=== PATIENT | male | born 1940 | race Caucasian/White ===

== ENCOUNTER → 2020-08-27 09:47 | Outpatient (BNV) | payer MEDICARE, SELFPAY | PROVIDERS: PCP Internal Medicine; Visit Provider Internal Medicine Medical Oncology | DX: I26.99 Other pulmonary embolism without acute cor pulmonale (principal) | CPT/HCPCS: 99212; 99213; 99214 ==

== ENCOUNTER 2020-11-09 11:49 | Outpatient (REF) | payer MEDICARE, SELFPAY ==
[2020-11-09 13:45] LABS: MANUAL DIFF FLAG NO
[2020-11-09 13:55] LABS: Basophils Percent Auto 0.3 % (0-2); Eosinophils Percent Auto 0.1 % (0-4); Hematocrit 45.7 % (42-52); Hemoglobin 14.9 g/dl (14.0-18.0); Imm Gran Abs Auto 0.04 X10*3/uL (0.00-0.03); Imm Gran Pct Auto 0.3 % (0.0-0.4); Lymphocytes Absolute Auto 1.1 X10*3/uL (1.2-4.9); Lymphocytes Percent Auto 8.7 % (20-40); Mean Corpuscular HGB Conc 32.6 g/dl (31.0-36.0); Mean Corpuscular Hemoglobin 29.7 pg (27.0-33.0); Mean Platelet Volume 11.2 fL (9.4-12.4); Monocytes Absolute Auto 1.3 X10*3/uL (0.1-1.2); Monocytes Percent Auto 10.1 % (2-11); Neutrophils Percent Auto 80.5 % (45-73); Platelet Count 241 X10*3/uL (160-400); Red Blood Count 5.02 X10*6/uL (4.60-5.80); Red Cell Distribution Width 12.7 % (11.0-16.0); White Blood Count 12.4 X10*3/uL (4.8-10.8)
[2020-11-09 14:09] LABS: Glucose Urine UA 500 MG/DL (NEG); Leukocyte Esterase Urine NEG (NEG); Nitrite Urine NEG (NEG); PH 5.5 (5.0-8.0); Specific Gravity - Urine >= 1.030 (1.005-1.025); Urine Blood NEG (NEG); Urine Ketones NEG (NEG); Urine Protein NEG (NEG-TRACE)
[2020-11-09 14:24] LABS: Alanine Aminotransferase 12 U/L (0-40); Alkaline Phosphatase 121 U/L (39-117); Anion Gap 16 (12-20); Aspartate Amino Transferase 19 U/L (5-37); Bilirubin Total 0.7 mg/dL (0.0-1.0); Blood Urea Nitrogen 19 mg/dL (9-16); Calcium 8.9 mg/dL (8.4-10.2); Carbon Dioxide 24 mmol/L (22-29); Chloride 103 mmol/L (96-108); Estimated Glomerular Filt Rate > 60; Glucose Random 135 mg/dL (60-115); Lipase 15 U/L (8-78); Potassium 4.5 mmol/L (3.3-5.1); Sodium 138 mmol/L (135-145); Total Protein 6.5 g/dL (6.5-8.0)
[2020-11-09 14:25] LABS: Appearance Urine CLEAR; Color Urine YELLOW
== END 2020-11-09 11:50 | disposition home or self-care (01) ==
LOC: HO.10HDL 11:49
PROVIDERS: Visit Provider Internal Medicine
DX: R10.9 Unspecified abdominal pain (principal); R11.2 Nausea with vomiting, unspecified; I10 Essential (primary) hypertension
CPT/HCPCS: 36415; 80053; 81003; 83690; 85025; 86140

== ENCOUNTER 2020-12-03 07:33 | Outpatient (REF) | payer MEDICARE, SELFPAY ==
--- NOTE | ~2020-12-03 | CT_ITS ---
EXAMINATION: CT ABDOMEN AND PELVIS WITHOUT CONTRAST CLINICAL INFORMATION: Abdominal pain. Right back pain. COMPARISON: None TECHNIQUE: Multidetector volumetric imaging was performed from the superior aspect of the liver through the pubic symphysis. Sagittal and coronal reformatted images were obtained on the technologist's workstation. This CT examination was performed using dose optimization techniques as appropriate, variously including the following: *Automated exposure control *Adjustment of mA and/or kV according to patient size (this includes techniques or standardized protocols for targeted exams where dose is matched to indication/reason for exam; i.e. extremities or head) *Use of iterative reconstruction technique DLP: 628 mGy-cm FINDINGS: LUNG BASES: The lung bases are clear. The heart size is normal. LIVER, GALLBLADDER, AND BILIARY TREE: The liver is normal in size, shape, and attenuation. No focal hepatic lesion or biliary ductal dilatation is present. The gallbladder is unremarkable with no evidence of radiopaque gallstones, gallbladder wall thickening, or obvious pericholecystic inflammatory changes. PANCREAS: Unremarkable. SPLEEN: Unremarkable. ADRENAL GLANDS: Unremarkable. KIDNEYS AND URETERS: The kidneys are normal in size, shape, and attenuation. No hydronephrosis, hydroureter, or calculi seen. No perinephric stranding. BLADDER: Unremarkable. GASTROINTESTINAL TRACT: There is scattered stool and gas seen throughout the colon without any significant distention. The small bowel loops are normal caliber. The appendix is not visualized. No inflammatory process seen in the abdomen or pelvis. ABDOMINAL WALL: No significant hernia is appreciated. LYMPH NODES: Normal. VASCULAR: Unremarkable. PELVIC VISCERA: Unremarkable. OSSEOUS STRUCTURES: There is no lytic or sclerotic process seen. There is mild ventral spondylosis upper and mid dorsal spine. There is vacuum disc phenomena at T12-L1 through L4-L5 disc levels. CT/CT abdomen pelvis wo con IMPRESSION: No acute intra-abdominal process. There is mild constipation.
== END 2020-12-03 07:34 | disposition home or self-care (01) ==
LOC: HO.CT 07:33
PROVIDERS: PCP Internal Medicine; Visit Provider Internal Medicine
DX: R10.84 Generalized abdominal pain (principal); R11.2 Nausea with vomiting, unspecified; M54.5 Low back pain
CPT/HCPCS: 74176

== ENCOUNTER 2021-01-15 18:59 | Inpatient (IN) | payer MEDICARE, SELFPAY ==
--- NOTE | ~2021-01-15 | US_ITS ---
EXAMINATION: US ABDOMEN LIMITED CLINICAL INFORMATION: Question cholecystitis. COMPARISON: CT from today TECHNIQUE: Real-time imaging of the gallbladder. FINDINGS: GALLBLADDER: No gallstones are seen. There is gallbladder wall thickening measuring 0.6 cm. Gallbladder wall edema noted. Small amount of echogenic bile in the gallbladder lumen. COMMON BILE DUCT: Normal in caliber measuring 0.4 cm in diameter. FREE FLUID: None. US/US abdomen limited IMPRESSION: Gallbladder wall thickening and wall edema. This appearance is concerning for cholecystitis, though could also be reactive to liver disease if present. No gallstones are seen. There is a small amount of sludge in the gallbladder.
--- NOTE | ~2021-01-15 | CT_ITS ---
EXAMINATION: CT ABDOMEN AND PELVIS WITH CONTRAST CLINICAL INFORMATION: Diffuse abdominal pain. Question pancreatitis. COMPARISON: Previous CT of the abdomen and pelvis 12/03/2020 TECHNIQUE: Multidetector volumetric images were obtained from the superior aspect of the liver through the pubic symphysis following administration 85 mL of Omnipaque 350 intravenous contrast. Sagittal and coronal reformatted images were obtained on the technologist's workstation. Oral contrast: Yes This CT examination was performed using dose optimization techniques as appropriate, variously including the following: *Automated exposure control *Adjustment of mA and/or kV according to patient size (this includes techniques or standardized protocols for targeted exams where dose is matched to indication/reason for exam; i.e. extremities or head) *Use of iterative reconstruction technique DLP: 836 mGy-cm FINDINGS: LUNG BASES: The visualized lung bases are unremarkable. LIVER, GALLBLADDER, AND BILIARY TREE: The liver is normal in size, shape, and attenuation. There is a 5 mm low-attenuation lesion in the anterior segment of the right lobe of the liver axial image 20 series 3 The gallbladder is normal in size. The gallbladder wall is slightly thickened and may be edematous. No gallstones are appreciated by CT scan. There is no intra or extrahepatic biliary duct dilatation. PANCREAS: Unremarkable. SPLEEN: Unremarkable. ADRENAL GLANDS: Unremarkable. KIDNEYS AND URETERS: There is a 1 cm low-attenuation lesion in the lower pole the right kidney. Hounsfield units following contrast measure 17 not compatible with a simple cyst. This may represent a complex cyst. The left kidney is unremarkable. BLADDER: Unremarkable. GASTROINTESTINAL TRACT: The small and large bowel are unremarkable. The appendix is unremarkable. ABDOMINAL WALL: No significant hernia is appreciated. LYMPH NODES: Normal. VASCULAR: Unremarkable. PELVIC VISCERA: Unremarkable. OSSEOUS STRUCTURES: There are degenerative changes of the spine. CT/CT abdomen pelvis w con IMPRESSION: Normal size gallbladder. The gallbladder wall appears slightly thickened and edematous. No gallstones are seen by CT scan. If there is clinical concern for cholecystitis, ultrasound or HIDA scan would be recommended. 1 cm low-attenuation lesion in the lower pole of the right kidney probably representing a complex cyst. 5 mm low-attenuation liver lesion difficult to characterize
[2021-01-15 19:10] VITALS: BP 186/86; BP 192/94; PULSE 50; PULSE 58; RESP 20; TEMP 36.7; O2SAT 97; BMI 32.3
--- NOTE | 2021-01-15 19:44 | ED.ABDPAIN ---
HPI - Abdominal Pain General Chief Complaint: Abdominal Pain Stated Complaint: abd pain Time Seen by Provider: 01/15/21 19:44 Source: patient Mode of arrival: ambulatory Limitations: no limitations History of Present Illness HPI narrative: Patient with no significant abdominal complaints in the past had normal bowel movements earlier today and in the ER comes here for last 5 hours of diffuse abdominal pain with nausea and vomiting vomited 2 times pain is diffuse radiate to his back with history of chronic back pain. Patient has no history of pancreatitis. No fever no chills patient is on Eliquis for DVT. No fever no chills. Patient had no bowels surgeries in the past Related Data Home Medications Medication Instructions Recorded Confirmed apixaban [Eliquis] 1 tab PO BID 08/27/20 08/27/20 finasteride 1 tab PO DAILY 08/27/20 08/27/20 omeprazole 1 cap PO DAILY 08/27/20 08/27/20 simvastatin 1 tab PO BEDTIME 08/27/20 08/27/20 tamsulosin 1 cap PO DAILY 08/27/20 08/27/20 Previous Rx's Medication Instructions Recorded Xarelto 20 mg PO DAILY #90 tab 08/27/20 Allergies Allergy/AdvReac Type Severity Reaction Status Date / Time oxycodone Allergy Unknown vomiting Verified 11/05/19 00:00 No Known Allergies Allergy Unverified 05/07/20 15:27 [No Known Allergies*] Review of Systems Review of Systems Constitutional : No Weight loss, No Fever, No Chills ENT/Mouth : No sore throat, No Rhinorrhea Eyes: No Eye Pain, No Swelling Cardiovascular : No Chest Pain, no palpitations Respiratory : No Cough, No Sputum, no shortness of breath Gastrointestinal : ++ Nausea,+ Vomiting, No Diarrhea,+ abdominal Pain, no black stools Genitourinary : No Dysuria, No Urinary Frequency Musculoskeletal : No joint pain, No Myalgias, No Joint Swelling Skin : No Skin Lesions, No rash Neuro : No Weakness, No Numbness, No Dizziness, No Headache Psych : No Anxiety/Panic, No Depression Heme/Lymph: No Bruising, No Lymphadenopathy Endocrine : No Polyuria, No Polydipsia All other systems reviewed and are negative Physical Exam Vital Signs: Vital Signs: Last Vital Signs Temp 98.0 F 01/15/21 19:10 Pulse 62 01/16/21 00:00 Resp 16 01/16/21 00:00 BP 116/57 L 01/16/21 00:00 Pulse Ox 97 01/16/21 00:00 Body Mass Index 32.3 Appearance: Alert. Oriented X3. In moderate distress. Eyes: PERRLA, No Nystagmus ENT: Pharynx normal. Oral Mucosa moist Neck: Normal inspection. Neck supple. CVS: Normal heart rate and rhythm. Pulses normal. Respiratory: No respiratory distress. Equal air entry bilateral, no wheezing/rales/rhonchi Abdomen: Soft diffuse upper abdominal tenderness no rebound tenderness or guarding. Bowel sounds are present, no mass palpable, no CVA tenderness Skin: Skin warm and dry. Normal skin color. Normal skin turgor. Extremities: No lower extremity edema. No calf tenderness Neuro: Oriented X 3. No motor deficit. No sensory deficit.No cerebellar signs , cranial nerves II-XII intact MDM - Abdominal Pain MDM Narrative Medical decision making narrative: Patient with diffuse upper abdominal pain CT scan showed thickening of the gallbladder wall without any stones. Were few sign is negative ultrasound also showed sludge in the gallbladder with wall thickening normal CBD duct size patient had elevated lactic acid level 2.5 which improved after hydration to 1.[address] Smith surgeon advised to admit medically will follow in the morning for possible HIDA scan Differential Diagnosis Differential diagnosis: Likely abdominal pain Lab Data Attestation: I reviewed the patient's lab results. Result diagrams: 01/15/21 19:53 01/15/21 19:53 Labs: Lab Results 01/15/21 01/15/21 01/15/21 Range/Units 19:53 19:53 19:53 WBC 9.0 (4.8-10.8) X10*3/uL RBC 4.79 (4.60-5.80) X10*6/uL Hgb 14.4 (14.0-18.0) g/dl Hct 43.8 (42-52) % MCV 91.4 (80-98) fL MCH 30.1 (27.0-33.0) pg MCHC 32.9 (31.0-36.0) g/dl RDW 12.6 (11.0-16.0) % Plt Count 183 (160-400) X10*3/uL MPV 10.1 (9.4-12.4) fL Immature Gran % (Auto) 0.2 (0.0-0.4) % Neut % (Auto) 69.7 (45-73) % Lymph % (Auto) 19.8 L (20-40) % [place] % (Auto) 8.7 (2-11) % Eos % (Auto) 0.9 (0-4) % Baso % (Auto) 0.7 (0-2) % Lymph # (Auto) 1.8 (1.2-4.9) X10*3/uL [place] # (Auto) 0.8 (0.1-1.2) X10*3/uL Eos # (Auto) 0.1 (0.0-0.4) X10*3/uL Baso # (Auto) 0.1 (0.0-0.2) X10*3/uL Abs Immat Gran (auto) 0.02 (0.00-0.03) X10*3/uL Absolute Neuts (auto) 6.3 (2.0-8.3) X10*3/uL Absolute Nucleated RBC 0.000 (0.0-0.012) X10*3/uL Nucleated RBC % (auto) 0.0 (0.0-0.2) /100WBC PT 12.5 (10.8-13.0) SEC INR 1.1 (0.9-1.1) APTT 34.0 (24.1-38.0) SEC Sodium 141 (135-145) mmol/L Potassium 3.9 (3.3-5.1) mmol/L Chloride 105 (96-108) mmol/L Carbon Dioxide 25 (22-29) mmol/L Anion Gap 15 (12-20) BUN 16 (9-16) mg/dL Creatinine 0.99 (0.5-1.4) mg/dL Estim Creat Clear Calc 71.4 Estimated GFR > 60 Random Glucose 136 H (60-115) mg/dL Lactic Acid (0.5-2.0) mmol/L Lactic Acid Fup @ 2Hr (0.5-2.0) mmol/L Calcium 9.3 (8.4-10.2) mg/dL Total Bilirubin 0.3 (0.0-1.0) mg/dL Direct Bilirubin 0.2 (0.0-0.5) mg/dL AST 19 (5-37) U/L ALT 14 (0-40) U/L Alkaline Phosphatase 120 H (39-117) U/L Troponin I High Sens (<3.5-35.0) ng/L Total Protein 6.5 (6.5-8.0) g/dL Albumin 4.0 (3.5-5.0) g/dL Lipase 22 (8-78) U/L Urine Color Urine Appearance Urine pH (5.0-8.0) Ur Specific [place] (1.005-1.025) Urine Protein (NEG-TRACE) MG/DL Urine Glucose (UA) (NEG) MG/DL Urine Ketones (NEG) MG/DL Urine Blood (NEG) Urine Nitrite (NEG) Ur Leukocyte Esterase (NEG) COVID-19 (IESHA) (Negative) COVID-19 Clin Com 01/15/21 01/15/21 01/15/21 Range/Units 19:53 19:53 19:53 WBC (4.8-10.8) X10*3/uL RBC (4.60-5.80) X10*6/uL Hgb (14.0-18.0) g/dl Hct (42-52) % MCV (80-98) fL MCH (27.0-33.0) pg MCHC (31.0-36.0) g/dl RDW (11.0-16.0) % Plt Count (160-400) X10*3/uL MPV (9.4-12.4) fL Immature Gran % (Auto) (0.0-0.4) % Neut % (Auto) (45-73) % Lymph % (Auto) (20-40) % [place] % (Auto) (2-11) % Eos % (Auto) (0-4) % Baso % (Auto) (0-2) % Lymph # (Auto) (1.2-4.9) X10*3/uL [place] # (Auto) (0.1-1.2) X10*3/uL Eos # (Auto) (0.0-0.4) X10*3/uL Baso # (Auto) (0.0-0.2) X10*3/uL Abs Immat Gran (auto) (0.00-0.03) X10*3/uL Absolute Neuts (auto) (2.0-8.3) X10*3/uL Absolute Nucleated RBC (0.0-0.012) X10*3/uL Nucleated RBC % (auto) (0.0-0.2) /100WBC PT (10.8-13.0) SEC INR (0.9-1.1) APTT (24.1-38.0) SEC Sodium (135-145) mmol/L Potassium (3.3-5.1) mmol/L Chloride (96-108) mmol/L Carbon Dioxide (22-29) mmol/L Anion Gap (12-20) BUN (9-16) mg/dL Creatinine (0.5-1.4) mg/dL Estim Creat Clear Calc Estimated GFR Random Glucose (60-115) mg/dL Lactic Acid 2.3 H* (0.5-2.0) mmol/L Lactic Acid Fup @ 2Hr (0.5-2.0) mmol/L Calcium (8.4-10.2) mg/dL Total Bilirubin (0.0-1.0) mg/dL Direct Bilirubin (0.0-0.5) mg/dL AST (5-37) U/L ALT (0-40) U/L Alkaline Phosphatase (39-117) U/L Troponin I High Sens 4.8 (<3.5-35.0) ng/L Total Protein (6.5-8.0) g/dL Albumin (3.5-5.0) g/dL Lipase (8-78) U/L Urine Color Urine Appearance Urine pH (5.0-8.0) Ur Specific [place] (1.005-1.025) Urine Protein (NEG-TRACE) MG/DL Urine Glucose (UA) (NEG) MG/DL Urine Ketones (NEG) MG/DL Urine Blood (NEG) Urine Nitrite (NEG) Ur Leukocyte Esterase (NEG) COVID-19 (IESHA) Negative (Negative) COVID-19 Clin Com See Note 01/15/21 01/15/21 Range/Units 21:26 23:04 WBC (4.8-10.8) X10*3/uL RBC (4.60-5.80) X10*6/uL Hgb (14.0-18.0) g/dl Hct (42-52) % MCV (80-98) fL MCH (27.0-33.0) pg MCHC (31.0-36.0) g/dl RDW (11.0-16.0) % Plt Count (160-400) X10*3/uL MPV (9.4-12.4) fL Immature Gran % (Auto) (0.0-0.4) % Neut % (Auto) (45-73) % Lymph % (Auto) (20-40) % [place] % (Auto) (2-11) % Eos % (Auto) (0-4) % Baso % (Auto) (0-2) % Lymph # (Auto) (1.2-4.9) X10*3/uL [place] # (Auto) (0.1-1.2) X10*3/uL Eos # (Auto) (0.0-0.4) X10*3/uL Baso # (Auto) (0.0-0.2) X10*3/uL Abs Immat Gran (auto) (0.00-0.03) X10*3/uL Absolute Neuts (auto) (2.0-8.3) X10*3/uL Absolute Nucleated RBC (0.0-0.012) X10*3/uL Nucleated RBC % (auto) (0.0-0.2) /100WBC PT (10.8-13.0) SEC INR (0.9-1.1) APTT (24.1-38.0) SEC Sodium (135-145) mmol/L Potassium (3.3-5.1) mmol/L Chloride (96-108) mmol/L Carbon Dioxide (22-29) mmol/L Anion Gap (12-20) BUN (9-16) mg/dL Creatinine (0.5-1.4) mg/dL Estim Creat Clear Calc Estimated GFR Random Glucose (60-115) mg/dL Lactic Acid (0.5-2.0) mmol/L Lactic Acid Fup @ 2Hr 1.5 (0.5-2.0) mmol/L Calcium (8.4-10.2) mg/dL Total Bilirubin (0.0-1.0) mg/dL Direct Bilirubin (0.0-0.5) mg/dL AST (5-37) U/L ALT (0-40) U/L Alkaline Phosphatase (39-117) U/L Troponin I High Sens (<3.5-35.0) ng/L Total Protein (6.5-8.0) g/dL Albumin (3.5-5.0) g/dL Lipase (8-78) U/L Urine Color YELLOW Urine Appearance HAZY Urine pH 5.5 (5.0-8.0) Ur Specific [place] 1.020 (1.005-1.025) Urine Protein NEG (NEG-TRACE) MG/DL Urine Glucose (UA) NEG (NEG) MG/DL Urine Ketones 5 (NEG) MG/DL Urine Blood NEG (NEG) Urine Nitrite NEG (NEG) Ur Leukocyte Esterase NEG (NEG) COVID-19 (IESHA) (Negative) COVID-19 Clin Com Imaging Data US - abdomen: Attestation: I personally reviewed and interpreted this imaging study as follows: Radiologist's impression: US/US abdomen limited IMPRESSION: Gallbladder wall thickening and wall edema. This appearance is concerning for cholecystitis, though could also be reactive to liver disease if present. No gallstones are seen. There is a small amount of sludge in the gallbladder. CT scan - abdomen: Attestation: I personally reviewed and interpreted this imaging study as follows: Radiologist's impression: RDER #: [id number] CT/CT abdomen pelvis w con IMPRESSION: Normal size gallbladder. The gallbladder wall appears slightly thickened and edematous. No gallstones are seen by CT scan. If there is clinical concern for cholecystitis, ultrasound or HIDA scan would be recommended. 1 cm low-attenuation lesion in the lower pole of the right kidney probably representing a complex cyst. 5 mm low-attenuation liver lesion difficult to characterize Discharge Plan Discharge Clinical Impression: Acute acalculous cholecystitis Patient Disposition: Admitted As Inpatient [facility] Past Medical History Medical History BPH (benign prostatic hyperplasia) GERD (gastroesophageal reflux disease) History of blood clots Hyperchloremia Social History Social History Alcohol intake: former Advance Directives: No Advance Directives Information Provided: Yes
--- NOTE | 2021-01-15 19:49 | ECG_ITS ---
Test Reason : ABDOMINAL PAIN Blood Pressure : / mmHG Vent. Rate : 059 BPM Atrial Rate : 059 BPM P-R Int : 212 ms QRS Dur : 102 ms QT Int : 452 ms P-R-T Axes : 017 -22 013 degrees QTc Int : 447 ms Sinus bradycardia with 1st degree A-V block with occasional Premature ventricular complexes Borderline ECG When compared with ECG of 11-NOV-2019 12:28, Premature ventricular complexes are now Present Referred By: Uriel Tesfaye Electronically Signed By:TIMOTHY JIM
[2021-01-15 20:02] LABS: MANUAL DIFF FLAG NO
[2021-01-15 20:07] LABS: Basophils Absolute Auto 0.1 X10*3/uL (0.0-0.2); Basophils Percent Auto 0.7 % (0-2); Eosinophils Absolute Auto 0.1 X10*3/uL (0.0-0.4); Eosinophils Percent Auto 0.9 % (0-4); Hematocrit 43.8 % (42-52); Hemoglobin 14.4 g/dl (14.0-18.0); Imm Gran Abs Auto 0.02 X10*3/uL (0.00-0.03); Imm Gran Pct Auto 0.2 % (0.0-0.4); Lymphocytes Absolute Auto 1.8 X10*3/uL (1.2-4.9); Lymphocytes Percent Auto 19.8 % (20-40); Mean Corpuscular HGB Conc 32.9 g/dl (31.0-36.0); Mean Corpuscular Hemoglobin 30.1 pg (27.0-33.0); Mean Corpuscular Volume 91.4 fL (80-98); Mean Platelet Volume 10.1 fL (9.4-12.4); Monocytes Absolute Auto 0.8 X10*3/uL (0.1-1.2); Monocytes Percent Auto 8.7 % (2-11); Neutrophils Absolute Auto 6.3 X10*3/uL (2.0-8.3); Neutrophils Percent Auto 69.7 % (45-73); Platelet Count 183 X10*3/uL (160-400); Red Blood Count 4.79 X10*6/uL (4.60-5.80); Red Cell Distribution Width 12.6 % (11.0-16.0)
[2021-01-15 20:18] LABS: INTERNATIONAL NORM RATIO 1.1 (0.9-1.1); Prothrombin Time 12.5 SEC (10.8-13.0)
[2021-01-15 20:20] LABS: COVID-19 Test Negative (Negative)
[2021-01-15 20:28] LABS: Lactic Acid 2.3 mmol/L (0.5-2.0)
[2021-01-15 20:29] LABS: Alanine Aminotransferase 14 U/L (0-40); Alkaline Phosphatase 120 U/L (39-117); Anion Gap 15 (12-20); Aspartate Amino Transferase 19 U/L (5-37); Bilirubin Direct 0.2 mg/dL (0.0-0.5); Bilirubin Total 0.3 mg/dL (0.0-1.0); Blood Urea Nitrogen 16 mg/dL (9-16); Calcium 9.3 mg/dL (8.4-10.2); Carbon Dioxide 25 mmol/L (22-29); Chloride 105 mmol/L (96-108); Creatinine Clr Calc Pharmacy 71.4; Estimated Glomerular Filt Rate > 60; Glucose Random 136 mg/dL (60-115); Lipase 22 U/L (8-78); Potassium 3.9 mmol/L (3.3-5.1); Sodium 141 mmol/L (135-145); Total Protein 6.5 g/dL (6.5-8.0)
[2021-01-15 20:31] LABS: Troponin-I High Sensitivity 4.8 ng/L (<3.5-35.0)
[2021-01-15] MEDS: 0.9 % Sodium Chloride 1,000 ML 999 ML IVCONT ×2 (20:33→21:50)
[2021-01-15] MEDS: ondansetron HCL 4 MG/2 ML VIAL IVPUSH (20:35)
--- NOTE | 2021-01-15 20:38 | PC.NURSE ---
pt states his abd pain is very slight. pt refused the morphine. pt states pain was relieved shortly after vomiting.
[2021-01-15] MEDS: iohexoL 350 MG/ML 100 ML INFUS..BTL 85 ML IV (20:59)
[2021-01-15] MEDS: Piperacillin Sodium/Tazobactam 3.375 GM in 0.9 % Sodium Chloride 50 ML IV (21:20)
[2021-01-15 21:45] LABS: Glucose Urine UA NEG (NEG); Leukocyte Esterase Urine NEG (NEG); Nitrite Urine NEG (NEG); PH 5.5 (5.0-8.0); Urine Blood NEG (NEG); Urine Ketones 5 MG/DL (NEG); Urine Protein NEG (NEG-TRACE)
[2021-01-15 21:46] LABS: Appearance Urine HAZY; Color Urine YELLOW
[2021-01-15 21:51] VITALS: BP 125/64; PULSE 67; RESP 18; O2SAT 95
[2021-01-15 21:59] LABS: Reflex Lactate? Lactic Acid Added
[2021-01-15 23:34] LABS: ~Lactic Acid-LAB USE ONLY 1.5 mmol/L (0.5-2.0)
[2021-01-16] VITALS: BP 116/57; PULSE 62; RESP 16; O2SAT 97
[2021-01-16] MEDS: Piperacillin Sodium/Tazobactam 3.375 GM in 0.9 % Sodium Chloride 50 ML IV ×2 (01:11→03:48)
[2021-01-16 01:14] VITALS: BP 108/57; PULSE 57; RESP 15; O2SAT 96
--- NOTE | 2021-01-16 03:00 | PM.IMHP ---
History of Present Illness Date of Service: 01/16/21 Chief Complaint: Abdominal pain 80-year-old male with a past medical history of hyperlipidemia, BPH, GERD, 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 Patient mentions that this afternoon he developed abdominal pain, diffuse, radiating to the back, associated nausea and vomiting. Abdominal pain was crampy in nature. Denies any diarrhea. Denies any numbness tingling. Denies any fever chills cough. Denies any urinary symptoms. Review of all other systems is negative except mentioned above ER course: Per ER team patient's abdomen a, no guarding no rigidity. CT scan showed edematous gallbladder wall, patient was afebrile. Ultrasound showed gallbladder wall thickening. ER team given Zosyn. Discussed with general surgery Dr. Smith who recommended HIDA scan to confirm if there is a cholecystitis, No acute intervention tonight. Admitted for further management. [facility] Medical History (Updated 01/24/21 @ 00:01 by Tiny Rodriguez) Abdominal pain BPH (benign prostatic hyperplasia) GERD (gastroesophageal reflux disease) History of blood clots Hyperchloremia Social History Household Members: Spouse Housing: House Do you presently have visiting nurse or other home services: No Alcohol intake: never Patient Tobacco Use Status: Former Tobacco user Use of substances other than those prescribed or required for medical reasons: No Currently Displaying Signs/Symptoms of Drug Intoxication Withdrawal: No Have you been hit, kicked, punched, or otherwise hurt by someone within the past year? If so, by whom?: No Do you feel safe in your current relationship?: Yes Is there a partner from a previous relationship who is making you feel unsafe now?: No Are you made to feel afraid or neglected: No Advance Directives: No Advance Directives Information Provided: Yes Do you have thoughts of harming others: None Do you have a plan to hurt others: No Plan Recently lost weight without trying: No Nutrition Risks: No Nutritional Risk Current occupational status: retired Meds Allergies Allergy/AdvReac Type Severity Reaction Status Date / Time oxycodone Allergy Unknown vomiting Verified 11/05/19 00:00 Active Medications: Current Medications Generic Name Dose Route Start Last Admin Trade Name Freq PRN Reason Stop Dose Admin Acetaminophen 650 mg 01/16/21 02:52 Acetaminophen 325 Mg Tablet PO Q6H PRN Pain, Mild (Pain Scale 1-3) Hydromorphone HCl 0.5 mg 01/16/21 02:52 Hydromorphone Hcl 0.5 Mg/0.5 Ml Syringe IVPUSH Q6H PRN Pain, Severe (Pain Scale 7-10) Dextrose/Sodium Chloride 1,000 mls @ 50 mls/hr 01/16/21 03:00 D51/2ns IVCONT .Q20H KAYCEE Piperacillin Sod/Tazobactam 50 mls @ 100 mls/hr 01/16/21 03:00 Sod 3.375 gm/ Sodium Chloride IV Q6H [facility] Insulin Human Lispro 0 unit 01/16/21 07:30 Insulin Lispro 100 Unit/Ml 3 Ml Vial SUBCUT QIDACHS [facility] Protocol Magnesium Hydroxide 30 ml 01/16/21 02:52 Milk Of Magnesia 30 Ml Oral.Susp PO DAILY PRN Constipation Sodium Chloride 3 ml 01/16/21 08:00 0.9 % Sodium Chloride Flush 3 Ml Syringe IVFLUSH QSHIFT [facility] Home Medications Medication Instructions Recorded Confirmed Last Taken Type Eliquis 1 tab PO BID 08/27/20 01/16/21 01/15/21 History 5 finasteride 1 tab PO DAILY 08/27/20 01/16/21 01/15/21 History 5 omeprazole 1 cap PO DAILY 08/27/20 01/16/21 01/15/21 History simvastatin 1 tab PO BEDTIME 08/27/20 01/16/21 01/15/21 History tamsulosin 1 cap PO DAILY 08/27/20 01/16/21 01/15/21 History tramadol 50 mg PO Q6-8H PRN 01/16/21 01/16/21 Unknown History Physical Exam Vital Signs and Narrative: Vital Signs: Last Vital Signs Temp 98.0 F 01/15/21 19:10 Pulse 57 01/16/21 01:14 Resp 15 01/16/21 01:14 BP 108/57 L 01/16/21 01:14 Pulse Ox 96 01/16/21 01:14 Body Mass Index 32.3 Gen: Appears be in no acute distress HEENT: NCAT, Moist mucosa. Pulmonary: Vesicular breath sounds, fair air entry CVS: Normal S1-S2 Abdomen: BS+, Soft, Nontender Extremities: Warm well perfused Neuro: Alert and awake. Results Labs CBC and Chem 7: 01/16/21 06:17 01/16/21 06:17 Labs: Laboratory Results - last 24 hr 01/15/21 01/15/21 01/15/21 19:53 19:53 19:53 MCV 91.4 MCH 30.1 MCHC 32.9 RDW 12.6 Plt Count 183 MPV 10.1 Immature Gran % (Auto) 0.2 Neut % (Auto) 69.7 Lymph % (Auto) 19.8 L [place] % (Auto) 8.7 Eos % (Auto) 0.9 Baso % (Auto) 0.7 Lymph # (Auto) 1.8 Garden # (Auto) 0.8 Eos # (Auto) 0.1 Baso # (Auto) 0.1 Abs Immat Gran (auto) 0.02 Absolute Neuts (auto) 6.3 Absolute Nucleated RBC 0.000 Nucleated RBC % (auto) 0.0 PT 12.5 INR 1.1 APTT 34.0 Anion Gap 15 Estim Creat Clear Calc 71.4 Estimated GFR > 60 Random Glucose 136 H Lactic Acid Lactic Acid Fup @ 2Hr Calcium 9.3 Total Bilirubin 0.3 Direct Bilirubin 0.2 AST 19 ALT 14 Alkaline Phosphatase 120 H Troponin I High Sens Total Protein 6.5 Albumin 4.0 Lipase 22 Urine Color Urine Appearance Urine pH Ur Specific [place] Urine Protein Urine Glucose (UA) Urine Ketones Urine Blood Urine Nitrite Ur Leukocyte Esterase COVID-19 ([facility]) COVID-19 Clin Com 01/15/21 01/15/21 01/15/21 19:53 19:53 19:53 MCV MCH MCHC RDW Plt Count MPV Immature Gran % (Auto) Neut % (Auto) Lymph % (Auto) Garden % (Auto) Eos % (Auto) Baso % (Auto) Lymph # (Auto) Garden # (Auto) Eos # (Auto) Baso # (Auto) Abs Immat Gran (auto) Absolute Neuts (auto) Absolute Nucleated RBC Nucleated RBC % (auto) PT INR APTT Anion Gap Estim Creat Clear Calc Estimated GFR Random Glucose Lactic Acid 2.3 H* Lactic Acid Fup @ 2Hr Calcium Total Bilirubin Direct Bilirubin AST ALT Alkaline Phosphatase Troponin I High Sens 4.8 Total Protein Albumin Lipase Urine Color Urine Appearance Urine pH Ur Specific [place] Urine Protein Urine Glucose (UA) Urine Ketones Urine Blood Urine Nitrite Ur Leukocyte Esterase COVID-19 ([facility]) Negative COVID-19 Clin Com See Note 01/15/21 01/15/21 21:26 23:04 MCV MCH MCHC RDW Plt Count MPV Immature Gran % (Auto) Neut % (Auto) Lymph % (Auto) Garden % (Auto) Eos % (Auto) Baso % (Auto) Lymph # (Auto) Garden # (Auto) Eos # (Auto) Baso # (Auto) Abs Immat Gran (auto) Absolute Neuts (auto) Absolute Nucleated RBC Nucleated RBC % (auto) PT INR APTT Anion Gap Estim Creat Clear Calc Estimated GFR Random Glucose Lactic Acid Lactic Acid Fup @ 2Hr 1.5 Calcium Total Bilirubin Direct Bilirubin AST ALT Alkaline Phosphatase Troponin I High Sens Total Protein Albumin Lipase Urine Color YELLOW Urine Appearance HAZY Urine pH 5.5 Ur Specific [place] 1.020 Urine Protein NEG Urine Glucose (UA) NEG Urine Ketones 5 Urine Blood NEG Urine Nitrite NEG Ur Leukocyte Esterase NEG COVID-19 ([facility]) COVID-19 Clin Com Imaging Radiologist's Impressions: Impressions Abdomen/Pelvis CT 01/15/21 19:49 IMPRESSION: Normal size gallbladder. The gallbladder wall appears slightly thickened and edematous. No gallstones are seen by CT scan. If there is clinical concern for cholecystitis, ultrasound or HIDA scan would be recommended. 1 cm low-attenuation lesion in the lower pole of the right kidney probably representing a complex cyst. 5 mm low-attenuation liver lesion difficult to characterize Abdomen Ultrasound 01/15/21 21:44 IMPRESSION: Gallbladder wall thickening and wall edema. This appearance is concerning for cholecystitis, though could also be reactive to liver disease if present. No gallstones are seen. There is a small amount of sludge in the gallbladder. Assessment and Plan (1) Acute acalculous cholecystitis: Status: Deleted 80-year-old male with a past medical history of BPH, GERD, lower extremity DVT on Eliquis, hyperlipidemia presented to the hospital with a chief complaint of abdominal discomfort/pain. Denies any fevers. Abdominal pain: CT scan showed gallbladder wall thickening. Concern for question cholecystitis. Blood cultures sent. Started Zosyn. Notified General surgery who recommended HIDA scan NPO IV fluids History of DVT: Continue Eliquis for now. Code status: Full code
[2021-01-16] MEDS: Dextrose 5 % and 0.45 % NaCl 1,000 ML 50 ML IVCONT (03:41)
[2021-01-16 03:49] VITALS: BP 110/54; PULSE 54; RESP 16; O2SAT 97
--- NOTE | 2021-01-16 05:53 | P.CONGS_ITS ---
History of Present Illness Consult details Consult date: 01/16/21 Narrative: 72-year-old male referred to me for question of cholecystitis. He came to the emergency room last night because of multiple complaints. He says he was in his backyard yesterday afternoon when he felt a ?knot? on his upper back. He says that he had pain on this area between his shoulder blades. He says he went back inside his house and to rest. He then described pain on his abdomenat the area of the umbilicus and all across his abdomen at this level. He says he did not really feel this as right upper quadrant pain. He started to have multiple episodes of vomiting so he decided to call 911 and was brought to the emergency room. He states that his pain resolved about o'clock last night. Currently he denies any abdominal pain and says he feels well. He stated that he wants to go home. Review of Systems Constitutional: Constitutional: Denies chills and Denies fever(s) Cardiovascular: Cardiovascular: Denies chest pain, Denies dyspnea and Denies dyspnea on exertion Respiratory: Respiratory: Denies cough, Denies dyspnea and Denies dyspnea on exertion Gastrointestinal: Gastrointestinal: Denies hematochezia, Denies change in bowel habits and Reports vomiting Genitourinary: Genitourinary: Denies hematuria and Denies difficulty urinating Musculoskeletal: Musculoskeletal: Reports back pain and Denies limited range of motion Neurologic: Denies focal weakness and Denies convulsions Psychiatric: Psychiatric: Denies depression and Denies mood swings PMFSH Past Medical History Medical History Abdominal pain BPH (benign prostatic hyperplasia) GERD (gastroesophageal reflux disease) History of blood clots Hyperchloremia Social History Social History Household Members: Spouse Housing: House Do you presently have visiting nurse or other home services: No Alcohol intake: never Patient Tobacco Use Status: Former Tobacco user Use of substances other than those prescribed or required for medical reasons: No Currently Displaying Signs/Symptoms of Drug Intoxication Withdrawal: No Have you been hit, kicked, punched, or otherwise hurt by someone within the past year? If so, by whom?: No Do you feel safe in your current relationship?: Yes Is there a partner from a previous relationship who is making you feel unsafe now?: No Are you made to feel afraid or neglected: No Advance Directives: No Advance Directives Information Provided: Yes Do you have thoughts of harming others: None Do you have a plan to hurt others: No Plan Recently lost weight without trying: No Nutrition Risks: No Nutritional Risk Current occupational status: retired Meds Allergies Allergy/AdvReac Type Severity Reaction Status Date / Time oxycodone Allergy Unknown vomiting Verified 11/05/19 00:00 Active Medications: Current Medications Generic Name Dose Route Start Last Admin Trade Name Freq PRN Reason Stop Dose Admin Acetaminophen 650 mg 01/16/21 02:52 Acetaminophen 325 Mg Tablet PO Q6H PRN Pain, Mild (Pain Scale 1-3) Hydromorphone HCl 0.5 mg 01/16/21 02:52 Hydromorphone Hcl 0.5 Mg/0.5 Ml Syringe IVPUSH Q6H PRN Pain, Severe (Pain Scale 7-10) Dextrose/Sodium Chloride 1,000 mls @ 50 mls/hr 01/16/21 03:00 01/16/21 03:41 D51/2ns IVCONT 50 mls/hr .Q20H [facility]CEE Administration Piperacillin Sod/Tazobactam 50 mls @ 100 mls/hr 01/16/21 03:00 01/16/21 05:40 Sod 3.375 gm/ Sodium Chloride IV Infused Q6H [facility] Infusion Insulin Human Lispro 0 unit 01/16/21 07:30 Insulin Lispro 100 Unit/Ml 3 Ml Vial SUBCUT QIDACHS [facility] Protocol Magnesium Hydroxide 30 ml 01/16/21 02:52 Milk Of Magnesia 30 Ml Oral.Susp PO DAILY PRN Constipation Sodium Chloride 3 ml 01/16/21 08:00 0.9 % Sodium Chloride Flush 3 Ml Syringe IVFLUSH QSHIFT [facility] Home Medications Medication Instructions Recorded Confirmed Last Taken Type apixaban [Eliquis] 1 tab PO BID 08/27/20 01/16/21 01/15/21 History 5 finasteride 1 tab PO DAILY 08/27/20 01/16/21 01/15/21 History 5 omeprazole 1 cap PO DAILY 08/27/20 01/16/21 01/15/21 History simvastatin 1 tab PO BEDTIME 08/27/20 01/16/21 01/15/21 History tamsulosin 1 cap PO DAILY 08/27/20 01/16/21 01/15/21 History tramadol 50 mg PO Q6-8H PRN 01/16/21 01/16/21 Unknown History Physical Exam Vital Signs: Vital Signs: Last Vital Signs Temp 98.0 F 01/15/21 19:10 Pulse 54 01/16/21 03:49 Resp 16 01/16/21 03:49 BP 110/54 L 01/16/21 03:49 Pulse Ox 97 01/16/21 03:49 Body Mass Index 32.3 Const: Other: Looks well General: comfortable and no acute distress Orientation/consciousness: patient oriented x3 Neck: Neck: Yes no lymphadenopathy Resp: Auscultation: clear to auscultation bilaterally Cardio: Rhythm: regular rhythm GI: Palpation (GI): Soft to palpation, nontender and no guarding Neuro: General: patient oriented x3 Results Labs Result diagrams: 01/16/21 06:17 01/16/21 06:17 Labs: Abnormal lab results 01/15/21 01/15/21 01/15/21 Range/Units 19:53 19:53 19:53 Lymph % (Auto) 19.8 L (20-40) % Random Glucose 136 H (60-115) mg/dL Lactic Acid 2.3 H* (0.5-2.0) mmol/L Alkaline Phosphatase 120 H (39-117) U/L Short CBC 01/15/21 Range/Units 19:53 WBC 9.0 (4.8-10.8) X10*3/uL Hgb 14.4 (14.0-18.0) g/dl Hct 43.8 (42-52) % Plt Count 183 (160-400) X10*3/uL BMP 01/15/21 19:53 Sodium 141 Potassium 3.9 Chloride 105 Carbon Dioxide 25 BUN 16 Creatinine 0.99 Calcium 9.3 Liver Function 01/15/21 Range/Units 19:53 Total Bilirubin 0.3 (0.0-1.0) mg/dL Direct Bilirubin 0.2 (0.0-0.5) mg/dL AST 19 (5-37) U/L ALT 14 (0-40) U/L Alkaline Phosphatase 120 H (39-117) U/L Albumin 4.0 (3.5-5.0) g/dL Urine 01/15/21 Range/Units 21:26 Urine Color YELLOW Urine Appearance HAZY Urine pH 5.5 (5.0-8.0) Ur Specific [place] 1.020 (1.005-1.025) Urine Protein NEG (NEG-TRACE) MG/DL Urine Glucose (UA) NEG (NEG) MG/DL All other labs normal. Imaging Abdomen CT scan report/results: report reviewed and image reviewed CT scan - pelvis: report reviewed and image reviewed Abdominal ultrasound report/results: report reviewed and image reviewed Assessment and Plan (1) Abdominal pain: Status: Acute He min last night because of pain, abdominal pain and multiple episodes of vomiting. He describes the pain as not being in the right upper quadrant. He currently has no pain at all nor tenderness. Despite his CAT scan ultrasound finding of a full thickening, clinically he does not have acute cholecystitis. Review of his images do not show distended gallbladder and there are no gallstones nor inflammatory changes. He does not have any leukocytosis and his LFTs are normal. The elevated lactate is likely due to his multiple episodes of vomiting subsequent dehydration. I would recommend hydration at this time. He does not appear to require any surgical intervention and has a very benign exam. Unless he has symptoms, I do not feel he needs any further workup or imaging studies at this time. I will follow along while he is in the hospital. I have explained the plan to him he does state that he able to go home now as he is completely pain-free. Procedures Date of Service Date of Service: 01/16/21
[2021-01-16 06:47] LABS: MANUAL DIFF FLAG NO
[2021-01-16 07:07] LABS: Basophils Percent Auto 0.3 % (0-2); Eosinophils Absolute Auto 0.1 X10*3/uL (0.0-0.4); Eosinophils Percent Auto 0.6 % (0-4); Hematocrit 44.2 % (42-52); Hemoglobin 14.2 g/dl (14.0-18.0); Imm Gran Abs Auto 0.03 X10*3/uL (0.00-0.03); Imm Gran Pct Auto 0.3 % (0.0-0.4); Lymphocytes Absolute Auto 1.7 X10*3/uL (1.2-4.9); Mean Corpuscular HGB Conc 32.1 g/dl (31.0-36.0); Mean Corpuscular Hemoglobin 29.6 pg (27.0-33.0); Mean Corpuscular Volume 92.1 fL (80-98); Mean Platelet Volume 10.5 fL (9.4-12.4); Monocytes Absolute Auto 0.9 X10*3/uL (0.1-1.2); Monocytes Percent Auto 10.4 % (2-11); Neutrophils Absolute Auto 5.9 X10*3/uL (2.0-8.3); Neutrophils Percent Auto 68.4 % (45-73); Platelet Count 189 X10*3/uL (160-400); Red Cell Distribution Width 12.8 % (11.0-16.0); White Blood Count 8.7 X10*3/uL (4.8-10.8)
[2021-01-16 07:16] LABS: Glucose, Whole Blood 109 mg/dL (60-115)
[2021-01-16 07:50] VITALS: BP 127/73; PULSE 50; RESP 20; TEMP 36.5; O2SAT 95
[2021-01-16 07:53] LABS: Anion Gap 13 (12-20); Blood Urea Nitrogen 13 mg/dL (9-16); Calcium 8.6 mg/dL (8.4-10.2); Carbon Dioxide 25 mmol/L (22-29); Chloride 107 mmol/L (96-108); Creatinine Clr Calc Pharmacy 83.2; Estimated Glomerular Filt Rate > 60; Glucose Random 101 mg/dL (60-115); Magnesium 2.1 mg/dL (1.6-2.6); Potassium 4.6 mmol/L (3.3-5.1); Sodium 140 mmol/L (135-145)
[2021-01-16 08:00] VITALS: BP 127/73; PULSE 50; RESP 20; TEMP 36.5; O2SAT 95
--- NOTE | 2021-01-16 08:11 | PM.OP ---
Brief Operative Note Date of Service: 01/16/21 Pre-op diagnosis: perforated viscus Post-op diagnosis: same (perforated duodenal ulcer) Procedure: laparotomy, repair of perforated duodenal ulcer with omental patch Surgeon: Duarte Smith MD Anesthesia: GETA Was an Mechanical Design Drafter used for this Procedure?: No Estimated blood loss (mL): 30 Pathology: none sent Condition: stable Disposition: PACU
--- NOTE | 2021-01-16 08:52 | PC.NURSE ---
EKG ordered and complete. Showing marked sinus bradycardia with sinus arrhythmia with 1st degree AV block. PUG MACHINE OPERATOR at bedside and aware.
[2021-01-16 11:22] LABS: Glucose, Whole Blood 95 mg/dL (60-115)
[2021-01-16 11:29] VITALS: BP 115/56; PULSE 61; RESP 20; TEMP 36.2; O2SAT 94
--- NOTE | 2021-01-16 12:47 | MHC.CM.PN ---
CM MET WITH PT AND WHO WAS AT BEDSIDE. THEY REPORT THE PT IS INDEPENDENT WITH ALL CARE AND MOBILITY, HAS NO SERVICES AND NO DME. PT REPORTEDLY HAS A HCP COMPLETED NAMING HIS , GERALD HIS AGENT. PT CONFIRMS HIS PCP IS BALTA CASTRO. PTS REPORTS THEY BELIEVE THE PT MAY DC TODAY AND SHE STATES THEY DID NOT FIND ANYTHING ON THE CT SCAN THAT WAS DONE. PTS IMM WAS REVIEWED THEY CONFIRM THE CURRENT DC PLAN IS HOME WITH NO SERVICES FAMILY WILL PROVIDE TRANSPORTATION
--- NOTE | 2021-01-16 13:26 | PM.DS ---
DS: Providers Provider Date of Service: 01/16/21 Date of admission: 01/16/21 02:52 Date of discharge: 01/16/21 Primary care physician: Duarte Waters MD Admitting clinician: Praful Romero Attending physician on admission: Praful Romero Consults: 01/16/21 02:57 Consult to General Surgery Routine Consulting Provider: Duarte Smith Reason for consultation: ?cholecystitis Attending physician on discharge: Shan Patrick Discharging clinician: Orquidea Nunn DS: Diagnosis Discharge Diagnosis (1) GERD (gastroesophageal reflux disease): Status: Acute (2) Abdominal pain: Status: Acute DS: Medications Discharge Medications Home Medications: Home Medications Medication Instructions Recorded Confirmed Eliquis 1 tab PO BID 08/27/20 01/16/21 finasteride 1 tab PO DAILY 08/27/20 01/16/21 omeprazole 1 cap PO DAILY 08/27/20 01/16/21 simvastatin 1 tab PO BEDTIME 08/27/20 01/16/21 tamsulosin 1 cap PO DAILY 08/27/20 01/16/21 tramadol 50 mg PO Q6-8H PRN 01/16/21 01/16/21 DS: Summary Hospital Course Hospital Course: HP as per admitting provider 80-year-old male with a past medical history of hyperlipidemia, BPH, GERD, 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 Patient mentions that this afternoon he developed abdominal pain, diffuse, radiating to the back, associated nausea and vomiting. Abdominal pain was crampy in nature. Denies any diarrhea. Denies any numbness tingling. Denies any fever chills cough. Denies any urinary symptoms . Epigastric abdominal painHad abdominal CT and ultrasound. Patient reports pain to the epigastrium radiating across his chest into his back for over 1 year. He reports talking to his primary care provider about it and was told ultimately to go to the ER for further evaluation. Abdominal CT and ultrasound negative for acute cholecystitis. Seen and evaluated by General surgery with no surgical intervention required. Symptoms may be related to acid reflux. Patient to continue his PPI. And may follow-up with internal combustion engine subassembler for further gastroenterological workup if warranted. History of DVT. Continue Eliquis. BPH. Continue tamsulosin and finasteride Time Spent with Patient Time attestation: Total time spent providing and/or coordinating discharge services: Discharge coordination time: Greater than 30 minutes Quality: Stroke Does the patient have a stroke diagnosis?: No Physical Exam Vital Signs: Vital Signs: Last Vital Signs Temp 97.1 F 01/16/21 11:29 Pulse 61 01/16/21 11:29 Resp 20 01/16/21 11:29 BP 115/56 L 01/16/21 11:29 Pulse Ox 94 01/16/21 11:29 Body Mass Index 32.3 Appearing in no acute distress head is normocephalic atraumatic eyes pupils are PERRLA sclera is anicteric mouth throat mucous membranes are intact and moist neck is supple no lymphadenopathy, no JVD noted lung sounds are clear to auscultation heart regular rate rhythm, clear S1, S2 positive bowel sounds, abdomen is soft, nontender neuro patient is alert x3, no focal deficits DS: Data Data Completed and Pending Labs on day of discharge: Laboratory Results - last 24 hr 01/15/21 01/15/21 01/15/21 19:53 19:53 19:53 WBC 9.0 RBC 4.79 Hgb 14.4 Hct 43.8 MCV 91.4 MCH 30.1 MCHC 32.9 RDW 12.6 Plt Count 183 MPV 10.1 Immature Gran % (Auto) 0.2 Neut % (Auto) 69.7 Lymph % (Auto) 19.8 L [place] % (Auto) 8.7 Eos % (Auto) 0.9 Baso % (Auto) 0.7 Lymph # (Auto) 1.8 [place] # (Auto) 0.8 Eos # (Auto) 0.1 Baso # (Auto) 0.1 Abs Immat Gran (auto) 0.02 Absolute Neuts (auto) 6.3 Absolute Nucleated RBC 0.000 Nucleated RBC % (auto) 0.0 PT 12.5 INR 1.1 APTT 34.0 Sodium 141 Potassium 3.9 Chloride 105 Carbon Dioxide 25 Anion Gap 15 BUN 16 Creatinine 0.99 Estim Creat Clear Calc 71.4 Estimated GFR > 60 POC Glucose Random Glucose 136 H Lactic Acid Lactic Acid Fup @ 2Hr Calcium 9.3 Magnesium Total Bilirubin 0.3 Direct Bilirubin 0.2 AST 19 ALT 14 Alkaline Phosphatase 120 H Troponin I High Sens Total Protein 6.5 Albumin 4.0 Lipase 22 Urine Color Urine Appearance Urine pH Ur Specific [place] Urine Protein Urine Glucose (UA) Urine Ketones Urine Blood Urine Nitrite Ur Leukocyte Esterase COVID-19 (IESHA) COVID-19 Clin Com 01/15/21 01/15/21 01/15/21 19:53 19:53 19:53 WBC RBC Hgb Hct MCV MCH MCHC RDW Plt Count MPV Immature Gran % (Auto) Neut % (Auto) Lymph % (Auto) [place] % (Auto) Eos % (Auto) Baso % (Auto) Lymph # (Auto) [place] # (Auto) Eos # (Auto) Baso # (Auto) Abs Immat Gran (auto) Absolute Neuts (auto) Absolute Nucleated RBC Nucleated RBC % (auto) PT INR APTT Sodium Potassium Chloride Carbon Dioxide Anion Gap BUN Creatinine Estim Creat Clear Calc Estimated GFR POC Glucose Random Glucose Lactic Acid 2.3 H* Lactic Acid Fup @ 2Hr Calcium Magnesium Total Bilirubin Direct Bilirubin AST ALT Alkaline Phosphatase Troponin I High Sens 4.8 Total Protein Albumin Lipase Urine Color Urine Appearance Urine pH Ur Specific [place] Urine Protein Urine Glucose (UA) Urine Ketones Urine Blood Urine Nitrite Ur Leukocyte Esterase COVID-19 (IESHA) Negative COVID-19 Clin Com See Note 01/15/21 01/15/21 01/16/21 21:26 23:04 06:17 WBC 8.7 RBC 4.80 Hgb 14.2 Hct 44.2 MCV 92.1 MCH 29.6 MCHC 32.1 RDW 12.8 Plt Count 189 MPV 10.5 Immature Gran % (Auto) 0.3 Neut % (Auto) 68.4 Lymph % (Auto) 20.0 [place] % (Auto) 10.4 Eos % (Auto) 0.6 Baso % (Auto) 0.3 Lymph # (Auto) 1.7 [place] # (Auto) 0.9 Eos # (Auto) 0.1 Baso # (Auto) 0.0 Abs Immat Gran (auto) 0.03 Absolute Neuts (auto) 5.9 Absolute Nucleated RBC 0.000 Nucleated RBC % (auto) 0.0 PT INR APTT Sodium Potassium Chloride Carbon Dioxide Anion Gap BUN Creatinine Estim Creat Clear Calc Estimated GFR POC Glucose Random Glucose Lactic Acid Lactic Acid Fup @ 2Hr 1.5 Calcium Magnesium Total Bilirubin Direct Bilirubin AST ALT Alkaline Phosphatase Troponin I High Sens Total Protein Albumin Lipase Urine Color YELLOW Urine Appearance HAZY Urine pH 5.5 Ur Specific [place] 1.020 Urine Protein NEG Urine Glucose (UA) NEG Urine Ketones 5 Urine Blood NEG Urine Nitrite NEG Ur Leukocyte Esterase NEG COVID-19 (IESHA) COVID-19 [employer] 01/16/21 01/16/21 01/16/21 06:17 07:06 11:07 WBC RBC Hgb Hct MCV MCH MCHC RDW Plt Count MPV Immature Gran % (Auto) Neut % (Auto) Lymph % (Auto) [place] % (Auto) Eos % (Auto) Baso % (Auto) Lymph # (Auto) [place] # (Auto) Eos # (Auto) Baso # (Auto) Abs Immat Gran (auto) Absolute Neuts (auto) Absolute Nucleated RBC Nucleated RBC % (auto) PT INR APTT Sodium 140 Potassium 4.6 Chloride 107 Carbon Dioxide 25 Anion Gap 13 BUN 13 Creatinine 0.85 Estim Creat Clear Calc 83.2 Estimated GFR > 60 POC Glucose 109 95 Random Glucose 101 Lactic Acid Lactic Acid Fup @ 2Hr Calcium 8.6 D Magnesium 2.1 Total Bilirubin Direct Bilirubin AST ALT Alkaline Phosphatase Troponin I High Sens Total Protein Albumin Lipase Urine Color Urine Appearance Urine pH Ur Specific [place] Urine Protein Urine Glucose (UA) Urine Ketones Urine Blood Urine Nitrite Ur Leukocyte Esterase COVID-19 ([facility]HA) COVID-19 [employer] Discharge Plan Discharge Anticipated Discharge Date/Time: 01/16/21 13:19 Patient Disposition: Home, Self-Care Discharge Diagnosis: Acid reflux Abdominal pain Referrals: Duarte Waters MD [Primary Care Provider] - 1 Week Mani Mckeon [Physician] - None (For further work-up for epigastric pain ) Discharge Medications: Continued tamsulosin 0.4 mg capsule 1 cap PO DAILY RF: 0 simvastatin 20 mg tablet 1 tab PO BEDTIME RF: 0 omeprazole 20 mg capsule,delayed release(DR/EC) 1 cap PO DAILY RF: 0 finasteride 5 mg tablet 1 tab PO DAILY RF: 0 Eliquis 5 mg tablet 1 tab PO BID RF: 0 tramadol 50 mg PO Q6-8H PRN (Reason: Pain) RF: 0 Discontinued Xarelto 10 mg Tablet 20 mg PO DAILY Qty: 90 RF: 3 Discharge Orders: Discharge Order (Routine); Ordered 01/16/21 Ordered By: Orquidea Nunn Diet: advance to usual diet Activity on Discharge: As tolerated Stand Alone Forms: Patient Portal Discharge page Care Plan Goals: Resolution of epigastric pain Health Concerns: Acid reflux Abdominal pain Plan of Treatment: Follow up with primary care provider at next scheduled appointment in February. Follow up with Dr. Mckeon for further gastroenterological studies for epigastric pain Assessment: See discharge summary Discharge Date/Time: 01/16/21 14:13
--- NOTE | 2021-01-16 13:47 | MHC.CM.PN ---
PT WILL BE DISCHARGED HOME TODAY WITH NO SERVICES FAMILY TO TRANSPORT
== END 2021-01-16 14:13 | disposition home or self-care (01) | DRG 446 ==
LOC: HO.ED 01-16 00:37 → HO.EDOVER 01-16 03:12 → HO.IMC 01-16 05:35
PROVIDERS: Admitting Provider Hospitalist; Emergency Provider Internal Medicine; PCP Internal Medicine; Visit Provider Internal Medicine
DX: K81.0 Acute cholecystitis (principal); K21.9 Gastro-esophageal reflux disease without esophagitis; N40.0 Benign prostatic hyperplasia without lower urinary tract symptoms; Z20.822 Contact with and (suspected) exposure to COVID-19; Z87.891 Personal history of nicotine dependence; Z88.5 Allergy status to narcotic agent; Z79.01 Long term (current) use of anticoagulants; Z79.891 Long term (current) use of opiate analgesic; Z79.899 Other long term (current) drug therapy
CPT/HCPCS: 36415; 74177; 76705; 80048; 80076; 81003; 82947; 83605; 83690; 83735; 84484; 85025; 85610; 85730; 87040; 87635; 93005; 96365; 96367; 96375; 99219; 99285; J2270; J2405; J2543; Q9967

== ENCOUNTER 2021-02-06 08:11 | Inpatient (IN) | payer MEDICARE, SELFPAY ==
[2021-02-06] VITALS (8 sets, daily range): BP systolic 125–170; BP diastolic 51–79; PULSE 55–64; RESP 15–18; TEMP 36.3–37.3; O2SAT 92–98; BMI 31.8
--- NOTE | ~2021-02-06 | US_ITS ---
EXAMINATION: US ABDOMEN LIMITED CLINICAL INFORMATION: Evaluate gallbladder. COMPARISON: Previous CT of the abdomen and pelvis and limited right upper quadrant ultrasound 01/15/2021 TECHNIQUE: Real-time imaging of the right upper quadrant abdominal viscera. FINDINGS: GALLBLADDER: The gallbladder is upper normal in size measuring 10 x 4 x 4.5 cm. There is gallbladder wall thickening and edema. Gallbladder wall thickness measures up to 0.7 cm. No gallstones are seen. There is no pericholecystic fluid. Findings are similar to previous ultrasound 01/15/2021 COMMON BILE DUCT: Normal in caliber measuring 0.3 cm in diameter. US/US abdomen limited IMPRESSION: Similar appearance to the gallbladder with gallbladder wall thickening and edema compared to December 2020 exam. Acalculus cholecystitis should be considered. This could be better evaluated with HIDA scan if clinically indicated. Differential includes gallbladder wall changes related to liver disease, low albumin and cholangitis.
--- NOTE | ~2021-02-06 | XR_ITS ---
EXAMINATION: XR CHEST CLINICAL INFORMATION: SOB COMPARISON: None TECHNIQUE: Frontal view of the chest was obtained. FINDINGS: There is mild cardiomegaly. With normal pulmonary vascularity. Lungs are hypoexpanded with patchy opacity left lower lobe retrocardiac area. No gross bony abnormality seen XR/XR chest 1V IMPRESSION: Left lower lobe retrocardiac opacity question infiltrate versus atelectasis. The lungs are hypoexpanded.
--- NOTE | ~2021-02-06 | US_ITS ---
EXAMINATION: US VENOUS ULTRASOUND WITH DOPPLER LOWER EXTREMITY, BILATERAL CLINICAL INFORMATION: Lower extremity edema. COMPARISON: None TECHNIQUE: Ultrasound of the deep veins is performed from the hip to the calf with compression sonography and color and pulse Doppler assessment. Spectral analysis with color-flow imaging is performed. FINDINGS: RIGHT: There is normal venous compression and respiratory variation and augmented flow. The visualized common femoral vein, superficial femoral vein, profunda femoral vein, popliteal vein, and the trifurcation region shows no evidence of deep venous thrombosis. No right popliteal cyst. Mild subcutaneous edema in the right calf. LEFT: There is normal venous compression and respiratory variation and augmented flow. The visualized common femoral vein, superficial femoral vein, profunda femoral vein, popliteal vein, and the trifurcation region shows no evidence of deep venous thrombosis. No popliteal cyst. Mild to moderate subcutaneous edema in the left calf. If the patient's symptoms persist, followup ultrasound in 5 days 7 days might be of value to exclude proximal propagation from a non-visualized calf vein. US/US venous duplex LE BI IMPRESSION: 1. No evidence for deep venous thrombosis in the visualized veins of the bilateral lower extremities. 2. Mild to moderate subcutaneous edema in the calves bilaterally, left greater than right.
--- NOTE | ~2021-02-06 | XR_ITS ---
EXAMINATION: XR CHEST CLINICAL INFORMATION: Hypoxia COMPARISON: February 09, 2021. CTA of December 14, 2018. TECHNIQUE: AP portable view of the chest was obtained. FINDINGS: There is chronic elevation of the right hemidiaphragm. There appears to be some right base atelectasis/scarring. No confluent pneumonitis identified. Heart normal size. No evidence of pulmonary edema. 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 No significant change from prior study. No definite evidence of confluent pneumonitis.
--- NOTE | 2021-02-06 08:41 | ED_ITS ---
HPI - Abdominal Pain General Chief Complaint: Abdominal Pain Stated Complaint: abd pain Time Seen by Provider: 02/06/21 08:17 Source: patient and family Mode of arrival: ambulatory Limitations: other (samantha castillo historian) History of Present Illness MD elicited complaint: abdominal pain Pertinent past history: other (5 months of intermittent abdominal pain) Onset (ago): month(s) (5 months but started after eating a burger last night) Pain Consistency: constant Location: RUQ Severity: severe Quality: stabbing Radiation: back Migration to: no migration Exacerbating factors: eating Relieving factors: nothing Context: history of similar episodes Associated symptoms: nausea and vomiting Related Data Home Medications Medication Instructions Recorded Confirmed Eliquis 1 tab PO BID 08/27/20 02/06/21 finasteride 1 tab PO DAILY 08/27/20 02/06/21 omeprazole 1 cap PO DAILY 08/27/20 02/06/21 simvastatin 1 tab PO BEDTIME 08/27/20 02/06/21 tamsulosin 1 cap PO BEDTIME 08/27/20 02/06/21 Allergies Allergy/AdvReac Type Severity Reaction Status Date / Time oxycodone Allergy Unknown vomiting Verified 11/05/19 00:00 Review of Systems Review of Systems Constitutional : No Weight loss, No Fever, No Chills ENT/Mouth : No sore throat, No Rhinorrhea Eyes: No Swelling, No Redness Cardiovascular : No Chest Pain, No SOB, NoEdema Respiratory : No Cough, No Sputum, No Wheezing Gastrointestinal : Positive Nausea, Positive Vomiting, no Diarrhea, positive abdominal Pain, No Hematochezia, No Melena Genitourinary : No Dysuria, No Urinary Frequency, No Hematuria, No Urgency Musculoskeletal : No joint pain, No Myalgias, No Joint Swelling Skin : No Skin Lesions, No rash Neuro : No Weakness, No Numbness, No Dizziness, No Headache Psych : No Anxiety/Panic, No Depression Heme/Lymph: No Bruising, No Lymphadenopathy Endocrine : No Polyuria, No Polydipsia All other systems reviewed and are negative. Physical Exam Vital Signs: Vital Signs: Last Vital Signs Temp 99.1 F 02/06/21 12:41 Pulse 58 02/06/21 12:41 Resp 15 02/06/21 12:41 BP 125/51 L 02/06/21 12:41 Pulse Ox 93 02/06/21 12:41 Body Mass Index 31.8 Appearance: Alert. Oriented X3. in pain moderate acute distress. Eyes: Pupils equal, round and reactive to light. ENT: Pharynx normal. Neck: Normal inspection. Neck supple. CVS: Normal heart rate and rhythm. Pulses normal. Respiratory: No respiratory distress. Breath sounds normal. Abdomen: Soft and moderate RUQ ttp with + Leo's sign, pos guarding, no rebound Skin: Skin warm and dry. Normal skin color. Normal skin turgor. Extremities: No lower extremity edema. No calf ttp Neuro: Oriented X 3. No motor deficit. No sensory deficit. Course Course Course Narrative: given a heads up to Dr. Moss [id number] for likely admit records from [facility] requested Dr. Moss to admit MDM - Abdominal Pain MDM Narrative Medical decision making narrative: 80 yo male with chronic abdominal pain for 5 months on and off hx of HLD, GERD, DVT on eliquis LAST DOSE ON MONDAY comes in with complaint of being told Monday after ?MRI vs HIDA scan at [facility] he has infected GB, PCP found him a surgeon to see on at [facility] [place] of this week and Rx cipro yesterday but did not take it. Ate a burger last night and the pain returned in RUQ with n/v was not instructed to eat no fat, at this time labs, cultures, IV dilaudid for pain, IV zosyn, US and surgery consult. Lab Data Result diagrams: 02/06/21 09:02 02/06/21 09:02 Labs: Lab Results 02/06/21 02/06/21 02/06/21 Range/Units 09:01 09:01 09:02 WBC 15.1 H (4.8-10.8) X10*3/uL RBC 5.50 (4.60-5.80) X10*6/uL Hgb 16.5 (14.0-18.0) g/dl Hct 49.7 (42-52) % MCV 90.4 (80-98) fL MCH 30.0 (27.0-33.0) pg MCHC 33.2 (31.0-36.0) g/dl RDW 12.6 (11.0-16.0) % Plt Count 230 (160-400) X10*3/uL MPV 10.5 (9.4-12.4) fL Immature Gran % (Auto) 0.4 (0.0-0.4) % Neut % (Auto) 84.7 H (45-73) % Lymph % (Auto) 6.6 L (20-40) % [place] % (Auto) 8.1 (2-11) % Eos % (Auto) 0.0 (0-4) % Baso % (Auto) 0.2 (0-2) % Lymph # (Auto) 1.0 L (1.2-4.9) X10*3/uL [place] # (Auto) 1.2 (0.1-1.2) X10*3/uL Eos # (Auto) 0.0 (0.0-0.4) X10*3/uL Baso # (Auto) 0.0 (0.0-0.2) X10*3/uL Abs Immat Gran (auto) 0.06 H (0.00-0.03) X10*3/uL Absolute Neuts (auto) 12.8 H (2.0-8.3) X10*3/uL Absolute Nucleated RBC 0.000 (0.0-0.012) X10*3/uL Nucleated RBC % (auto) 0.0 (0.0-0.2) /100WBC PT (10.8-13.0) SEC INR (0.9-1.1) APTT (24.1-38.0) SEC Sodium (135-145) mmol/L Potassium (3.3-5.1) mmol/L Chloride (96-108) mmol/L Carbon Dioxide (22-29) mmol/L Anion Gap (12-20) BUN (9-16) mg/dL Creatinine (0.5-1.4) mg/dL Estim Creat Clear Calc Estimated GFR Random Glucose (60-115) mg/dL Lactic Acid 2.8 H* (0.5-2.0) mmol/L Calcium (8.4-10.2) mg/dL Magnesium 2.0 (1.6-2.6) mg/dL Total Bilirubin 1.0 (0.0-1.0) mg/dL Direct Bilirubin 0.4 (0.0-0.5) mg/dL AST 24 (5-37) U/L ALT 14 (0-40) U/L Alkaline Phosphatase 146 H D (39-117) U/L Total Protein 7.3 (6.5-8.0) g/dL Albumin 4.5 (3.5-5.0) g/dL Lipase 12 (8-78) U/L COVID-19 (IESHA) (Negative) COVID-19 Clin Com Blood Type Antibody Screen 02/06/21 02/06/21 02/06/21 Range/Units 09:02 09:02 09:04 WBC (4.8-10.8) X10*3/uL RBC (4.60-5.80) X10*6/uL Hgb (14.0-18.0) g/dl Hct (42-52) % MCV (80-98) fL MCH (27.0-33.0) pg MCHC (31.0-36.0) g/dl RDW (11.0-16.0) % Plt Count (160-400) X10*3/uL MPV (9.4-12.4) fL Immature Gran % (Auto) (0.0-0.4) % Neut % (Auto) (45-73) % Lymph % (Auto) (20-40) % [place] % (Auto) (2-11) % Eos % (Auto) (0-4) % Baso % (Auto) (0-2) % Lymph # (Auto) (1.2-4.9) X10*3/uL [place] # (Auto) (0.1-1.2) X10*3/uL Eos # (Auto) (0.0-0.4) X10*3/uL Baso # (Auto) (0.0-0.2) X10*3/uL Abs Immat Gran (auto) (0.00-0.03) X10*3/uL Absolute Neuts (auto) (2.0-8.3) X10*3/uL Absolute Nucleated RBC (0.0-0.012) X10*3/uL Nucleated RBC % (auto) (0.0-0.2) /100WBC PT 12.5 (10.8-13.0) SEC INR 1.1 (0.9-1.1) APTT 35.9 (24.1-38.0) SEC Sodium 140 (135-145) mmol/L Potassium 4.4 (3.3-5.1) mmol/L Chloride 104 (96-108) mmol/L Carbon Dioxide 25 (22-29) mmol/L Anion Gap 15 (12-20) BUN 21 H D (9-16) mg/dL Creatinine 1.09 (0.5-1.4) mg/dL Estim Creat Clear Calc 64.4 Estimated GFR > 60 Random Glucose 139 H D (60-115) mg/dL Lactic Acid (0.5-2.0) mmol/L Calcium 9.8 D (8.4-10.2) mg/dL Magnesium (1.6-2.6) mg/dL Total Bilirubin (0.0-1.0) mg/dL Direct Bilirubin (0.0-0.5) mg/dL AST (5-37) U/L ALT (0-40) U/L Alkaline Phosphatase (39-117) U/L Total Protein (6.5-8.0) g/dL Albumin (3.5-5.0) g/dL Lipase (8-78) U/L COVID-19 (IESHA) Negative (Negative) COVID-19 Clin Com See Note Blood Type Antibody Screen 02/06/21 Range/Units 09:18 WBC (4.8-10.8) X10*3/uL RBC (4.60-5.80) X10*6/uL Hgb (14.0-18.0) g/dl Hct (42-52) % MCV (80-98) fL MCH (27.0-33.0) pg MCHC (31.0-36.0) g/dl RDW (11.0-16.0) % Plt Count (160-400) X10*3/uL MPV (9.4-12.4) fL Immature Gran % (Auto) (0.0-0.4) % Neut % (Auto) (45-73) % Lymph % (Auto) (20-40) % [place] % (Auto) (2-11) % Eos % (Auto) (0-4) % Baso % (Auto) (0-2) % Lymph # (Auto) (1.2-4.9) X10*3/uL [place] # (Auto) (0.1-1.2) X10*3/uL Eos # (Auto) (0.0-0.4) X10*3/uL Baso # (Auto) (0.0-0.2) X10*3/uL Abs Immat Gran (auto) (0.00-0.03) X10*3/uL Absolute Neuts (auto) (2.0-8.3) X10*3/uL Absolute Nucleated RBC (0.0-0.012) X10*3/uL Nucleated RBC % (auto) (0.0-0.2) /100WBC PT (10.8-13.0) SEC INR (0.9-1.1) APTT (24.1-38.0) SEC Sodium (135-145) mmol/L Potassium (3.3-5.1) mmol/L Chloride (96-108) mmol/L Carbon Dioxide (22-29) mmol/L Anion Gap (12-20) BUN (9-16) mg/dL Creatinine (0.5-1.4) mg/dL Estim Creat Clear Calc Estimated GFR Random Glucose (60-115) mg/dL Lactic Acid (0.5-2.0) mmol/L Calcium (8.4-10.2) mg/dL Magnesium (1.6-2.6) mg/dL Total Bilirubin (0.0-1.0) mg/dL Direct Bilirubin (0.0-0.5) mg/dL AST (5-37) U/L ALT (0-40) U/L Alkaline Phosphatase (39-117) U/L Total Protein (6.5-8.0) g/dL Albumin (3.5-5.0) g/dL Lipase (8-78) U/L COVID-19 (IESHA) (Negative) COVID-19 Clin Com Blood Type O Positive Antibody Screen NEGATIVE ECG Data Attestation: I personally reviewed and interpreted this ECG as follows: ECG interpretation date: 02/06/21 ECG interpretation time: 09:32 Interpretation: Rate: 62 Rhythm: NSR with 1st degree AVB frequent PVCs [place]: left Normal P waves. 1st degree Normal QRS complex. ST T wave : normal no ANDREA qTC: normal prior studies: no acute ischemia The study has been interpreted contemporaneously by me. . Critical Care Time Critical Care Time Critical Care Time: Yes Total Critical Care Time: 35 Attestation: medical consult, IV dilaudid for pain, request of records from [facility] attest to this time spent taking care of the patient Discharge Plan Discharge Clinical Impression: Acute cholecystitis, Acidosis, lactic Abdominal pain Qualifiers: Abdominal location: right upper quadrant Qualified Code(s): R10.11 - Right upper quadrant pain Leukocytosis Qualifiers: Leukocytosis type: unspecified Qualified Code(s): D72.829 - Elevated white blood cell count, unspecified Patient Disposition: Admitted As Inpatient [facility] Past Medical History Attestation statement: The following information was validated with the patient. Medical History (Updated 02/06/21 @ 13:42 by BASHIR Harrison) Abdominal pain BPH (benign prostatic hyperplasia) GERD (gastroesophageal reflux disease) HLD (hyperlipidemia) Hyperchloremia Left leg DVT Pulmonary embolism Social History Social History Household Members: Spouse Housing: House Do you presently have visiting nurse or other home services: No Alcohol intake: never Patient Tobacco Use Status: Former Tobacco user Advance Directives: No Advance Directives Information Provided: No Current occupational status: retired
--- NOTE | 2021-02-06 08:54 | ECG_ITS ---
Test Reason : ABD PAIN Blood Pressure : / mmHG Vent. Rate : 062 BPM Atrial Rate : 062 BPM P-R Int : 202 ms QRS Dur : 098 ms QT Int : 436 ms P-R-T Axes : 006 -32 010 degrees QTc Int : 442 ms Sinus rhythm with frequent Premature ventricular complexes Left axis deviation Abnormal ECG When compared with ECG of 15-JAN-2021 20:09, No significant change was found Referred By: Melody Malagon Electronically Signed By:TIMOTHY JIM
[2021-02-06 09:10] LABS: MANUAL DIFF FLAG NO
[2021-02-06 09:12] LABS: Basophils Percent Auto 0.2 % (0-2); Hematocrit 49.7 % (42-52); Hemoglobin 16.5 g/dl (14.0-18.0); Imm Gran Abs Auto 0.06 X10*3/uL (0.00-0.03); Imm Gran Pct Auto 0.4 % (0.0-0.4); Lymphocytes Percent Auto 6.6 % (20-40); Mean Corpuscular HGB Conc 33.2 g/dl (31.0-36.0); Mean Corpuscular Volume 90.4 fL (80-98); Mean Platelet Volume 10.5 fL (9.4-12.4); Monocytes Absolute Auto 1.2 X10*3/uL (0.1-1.2); Monocytes Percent Auto 8.1 % (2-11); Neutrophils Absolute Auto 12.8 X10*3/uL (2.0-8.3); Neutrophils Percent Auto 84.7 % (45-73); Platelet Count 230 X10*3/uL (160-400); Red Cell Distribution Width 12.6 % (11.0-16.0); White Blood Count 15.1 X10*3/uL (4.8-10.8)
[2021-02-06] MEDS: HYDROmorphone HCl 1 MG/ML SYRINGE IVPUSH (09:12)
[2021-02-06] MEDS: ondansetron HCL 4 MG/2 ML VIAL IVPUSH ×3 (09:12→21:30)
[2021-02-06] MEDS: 0.9 % Sodium Chloride 500 ML IV (09:12)
[2021-02-06 09:17] LABS: INTERNATIONAL NORM RATIO 1.1 (0.9-1.1); Prothrombin Time 12.5 SEC (10.8-13.0)
[2021-02-06] MEDS: Piperacillin Sodium/Tazobactam 3.375 GM in 0.9 % Sodium Chloride 50 ML IV ×3 (09:19→20:30)
[2021-02-06 09:20] LABS: Partial Thromboplastin Time 35.9 SEC (24.1-38.0)
--- NOTE | 2021-02-06 09:22 | PC.NURSE ---
placed on nc, alert, denies sob, taking good strong breaths
[2021-02-06 09:29] LABS: Anion Gap 15 (12-20); Blood Urea Nitrogen 21 mg/dL (9-16); Calcium 9.8 mg/dL (8.4-10.2); Carbon Dioxide 25 mmol/L (22-29); Chloride 104 mmol/L (96-108); Creatinine Clr Calc Pharmacy 64.4; Estimated Glomerular Filt Rate > 60; Glucose Random 139 mg/dL (60-115); Potassium 4.4 mmol/L (3.3-5.1); Sodium 140 mmol/L (135-145)
[2021-02-06 09:32] LABS: Alanine Aminotransferase 14 U/L (0-40); Albumin Level 4.5 g/dL (3.5-5.0); Alkaline Phosphatase 146 U/L (39-117); Aspartate Amino Transferase 24 U/L (5-37); Bilirubin Direct 0.4 mg/dL (0.0-0.5); Lipase 12 U/L (8-78); Total Protein 7.3 g/dL (6.5-8.0)
[2021-02-06 09:42] LABS: COVID-19 Test Negative (Negative)
[2021-02-06 09:47] LABS: Lactic Acid 2.8 mmol/L (0.5-2.0)
[2021-02-06 11:09] LABS: Reflex Lactate? Lactic Acid Added
[2021-02-06] MEDS: Enoxaparin Sodium 40 MG/0.4 ML SYRINGE SUBCUT (11:19)
[2021-02-06 12:10] LABS: Appearance Urine HAZY; Color Urine YELLOW; Glucose Urine UA NEG (NEG); Leukocyte Esterase Urine NEG (NEG); Nitrite Urine NEG (NEG); Specific Gravity - Urine 1.025 (1.005-1.025); Urine Blood NEG (NEG); Urine Ketones 5 MG/DL (NEG); Urine Protein TRACE MG/DL (NEG-TRACE)
[2021-02-06] MEDS: HYDROmorphone HCl 0.5 MG/0.5 ML SYRINGE IVPUSH ×3 (12:16→21:30)
[2021-02-06] MEDS: Dextrose 5 % and 0.9 % NaCl 1,000 ML 100 ML IVCONT (12:20)
--- NOTE | 2021-02-06 13:30 | P.CONIM_ITS ---
History of Present Illness Data of Consult Service Date: 02/06/21 <BASHIR Harrison - Last Filed: 02/06/21 13:53> Requesting physician: Davian Moss <BASHIR Harrison - Last Filed: 02/06/21 13:53> Primary Care Provider: Duarte Waters MD <BASHIR Harrison - Last Filed: 02/06/21 13:53> HPI Reason for consult: Acute cholecystitis, DVT <BASHIR Harrison - Last Filed: 02/06/21 13:53> This is a 80 year male who presents to the emergency department with abdominal pain. He was admitted in December over night with abdominal pain. At that time he had an ultrasound concerning for cholecystitis however his abdominal pain resolved and the patient was discharged home. He has had intermittent abdominal pain since that time. A few days ago his PCP sent him to [facility] for a HIDA scan which showed acute cholecystitis. He was then reportedly scheduled for procedure at outside hospital. Last evening he had a cheeseburger, [place] fries and chocolate bar for dinner. Following his dinner he began having upper abdominal pain with associated nausea and vomiting. He denies associated fever or chills. His pain persisted throughout the night and this prompted him to come to the emergency department this morning. Ultrasound done today shows a similar appearance to the gallbladder when compared to December 2020. Acalculous cholecystitis should be considered. CBC and BMP were unremarkable. Lactic acid was initially elevated to 2.8 which resolved with fluid. He was admitted to the surgical service for further management. He continues to have persistent abdominal pain. The hospitalist service was asked to see the patient in consultation. Of ntoe, the patient did not take his Eliquis last evening, seems unsure if he took it yesterday morning. <BASHIR Harrison - Last Filed: 02/06/21 13:53> Review of Systems Review of Systems: Yes all other systems are reviewed and are negative <BASHIR Harrison Last Filed: 02/06/21 13:53> Constitutional: Constitutional: Denies chills and Denies fever(s) <BASHIR Harrison - Last Filed: 02/06/21 13:53> Cardiovascular: Cardiovascular: Denies chest pain <BASHIR Harrison - Last Filed: 02/06/21 13:53> Respiratory: Respiratory: Denies cough <BASHIR Harrison - Last Filed: 02/06/21 13:53> Gastrointestinal: Gastrointestinal: Reports nausea and Reports vomiting <BASHIR Harrison - Last Filed: 02/06/21 13:53> [facility] Medical History: Medical History (Updated 02/06/21 @ 13:42 by BASHIR Harrison) Abdominal pain BPH (benign prostatic hyperplasia) GERD (gastroesophageal reflux disease) HLD (hyperlipidemia) Hyperchloremia Left leg DVT Pulmonary embolism <BASHIR Harrison Last Filed: 02/06/21 13:53> Functional capacity: independent ambulation <BASHIR Harrison - Last Filed: 02/06/21 13:53> Family history: reviewed and not pertinent <BASHIR Harrison - Last Filed: 02/06/21 13:53> Social History: Social History Household Members: Spouse Housing: House Do you presently have visiting nurse or other home services: No Alcohol intake: never Patient Tobacco Use Status: Former Tobacco user Advance Directives: No Advance Directives Information Provided: No Current occupational status: retired <BASHIR Harrison - Last Filed: 02/06/21 13:53> Meds Allergies/Adverse reactions: Allergies Allergy/AdvReac Type Severity Reaction Status Date / Time oxycodone Allergy Unknown vomiting Verified 11/05/19 00:00 <BASHIR Harrison - Last Filed: 02/06/21 13:53> Active Medications: Current Medications Generic Name Dose Route Start Last Admin Trade Name Freq PRN Reason Stop Dose Admin Acetaminophen 650 mg 02/06/21 11:53 Acetaminophen 325 Mg Tablet PO Q6H PRN Pain, Mild (Pain Scale 1-3) Enoxaparin Sodium 40 mg 02/06/21 11:00 02/06/21 11:19 Enoxaparin Sodium 40 Mg/0.4 Ml Syringe SUBCUT 40 mg Q24H KAYCEE Administration Hydromorphone HCl 0.5 mg 02/06/21 11:53 02/06/21 12:16 Hydromorphone Hcl 0.5 Mg/0.5 Ml Syringe IVPUSH 0.5 mg Q3H PRN Administration Pain, Severe (Pain Scale 7-10) Dextrose/Sodium Chloride 1,000 mls @ 100 mls/hr 02/06/21 12:00 02/06/21 12:20 D5ns IVCONT 100 mls/hr .Q10H KAYCEE Administration Piperacillin Sod/Tazobactam 50 mls @ 100 mls/hr 02/06/21 15:00 Sod 3.375 gm/ Sodium Chloride IV Q6H KAYCEE Ondansetron HCl 4 mg 02/06/21 11:53 02/06/21 12:16 Ondansetron Hcl 4 Mg/2 Ml Vial IVPUSH 4 mg QID PRN Administration Nausea Sodium Chloride 3 ml 02/06/21 16:00 0.9 % Sodium Chloride Flush 3 Ml Syringe IVFLUSH QSHIFT KAYCEE Temazepam 15 mg 02/06/21 11:53 Temazepam 15 Mg Capsule PO BEDTIME PRN Insomnia <BASHIR Harrison - Last Filed: 02/06/21 13:53> Home medications: Home Medications Medication Instructions Recorded Confirmed Last Taken Type Eliquis 1 tab PO BID 08/27/20 02/06/21 02/05/21 History finasteride 1 tab PO DAILY 08/27/20 02/06/21 02/05/21 History omeprazole 1 cap PO DAILY 08/27/20 02/06/21 02/05/21 History simvastatin 1 tab PO BEDTIME 08/27/20 02/06/21 02/05/21 History tamsulosin 1 cap PO BEDTIME 08/27/20 02/06/21 02/04/21 History <BASHIR Harrison - Last Filed: 02/06/21 13:53> Physical Exam Vital Signs and Narrative: Vital Signs: Last Vital Signs Temp 99.1 F 02/06/21 12:41 Pulse 58 02/06/21 12:41 Resp 15 02/06/21 12:41 BP 125/51 L 02/06/21 12:41 Pulse Ox 93 02/06/21 12:41 Body Mass Index 31.8 <BASHIR Harrison - Last Filed: 02/06/21 13:53> Const: Nutritional Appearance: well nourished <BASHIR Harrison - Last Filed: 02/06/21 13:53> Orientation/consciousness: patient oriented x3 <BASHIR Harrison - Last Filed: 02/06/21 13:53> HENMT: Head: Yes normocephalic and Yes atraumatic <BASHIR Harrison - Last Filed: 02/06/21 13:53> Eyes: Sclerae: sclerae normal <BASHIR Harrison - Last Filed: 02/06/21 13:53> Chest: Chest palpation & inspection: normal inspection of the chest <BASHIR Harrison - Last Filed: 02/06/21 13:53> Resp: Effort & Inspection: normal respiratory effort and no respiratory distress <BASHIR Harrison - Last Filed: 02/06/21 13:53> Cardio: Rate: regular rate <BASHIR Harrison - Last Filed: 02/06/21 13:53> Rhythm: regular rhythm <BASHIR Harrison - Last Filed: 02/06/21 13:53> GI: Other: soft; tender to palpation in RUQ primarily, some tenderness in epigastrum +bowel sounds <BASHIR Harrison - Last Filed: 02/06/21 13:53> Neuro: General: patient oriented x3 <BASHIR Harrison - Last Filed: 02/06/21 13:53> Cranial nerves: Yes CN's II-XII intact bilaterally and Yes Bilaterally intact EOM present <BASHIR Harrison - Last Filed: 02/06/21 13:53> Results Labs CBC and Chem 7: : 02/06/21 09:02 02/06/21 09:02 <BASHIR Harrison - Last Filed: 02/06/21 13:53> Labs: Laboratory Results - last 24 hr 02/06/21 02/06/21 02/06/21 09:01 09:01 09:02 MCV 90.4 MCH 30.0 MCHC 33.2 RDW 12.6 Plt Count 230 MPV 10.5 Immature Gran % (Auto) 0.4 Neut % (Auto) 84.7 H Lymph % (Auto) 6.6 L Graves % (Auto) 8.1 Eos % (Auto) 0.0 Baso % (Auto) 0.2 Lymph # (Auto) 1.0 L Graves # (Auto) 1.2 Eos # (Auto) 0.0 Baso # (Auto) 0.0 Abs Immat Gran (auto) 0.06 H Absolute Neuts (auto) 12.8 H Absolute Nucleated RBC 0.000 Nucleated RBC % (auto) 0.0 PT INR APTT Anion Gap Estim Creat Clear Calc Estimated GFR Random Glucose Lactic Acid 2.8 H* Lactic Acid Fup @ 2Hr Calcium Magnesium 2.0 Total Bilirubin 1.0 Direct Bilirubin 0.4 AST 24 ALT 14 Alkaline Phosphatase 146 H D Total Protein 7.3 Albumin 4.5 Lipase 12 Urine Color Urine Appearance Urine pH Ur Specific [place] Urine Protein Urine Glucose (UA) Urine Ketones Urine Blood Urine Nitrite Ur Leukocyte Esterase COVID-19 (IESHA) COVID-[employer] Blood Type Antibody Screen 02/06/21 02/06/21 02/06/21 09:02 09:02 09:04 MCV MCH MCHC RDW Plt Count MPV Immature Gran % (Auto) Neut % (Auto) Lymph % (Auto) Graves % (Auto) Eos % (Auto) Baso % (Auto) Lymph # (Auto) Graves # (Auto) Eos # (Auto) Baso # (Auto) Abs Immat Gran (auto) Absolute Neuts (auto) Absolute Nucleated RBC Nucleated RBC % (auto) PT 12.5 INR 1.1 APTT 35.9 Anion Gap 15 Estim Creat Clear Calc 64.4 Estimated GFR > 60 Random Glucose 139 H D Lactic Acid Lactic Acid Fup @ 2Hr Calcium 9.8 D Magnesium Total Bilirubin Direct Bilirubin AST ALT Alkaline Phosphatase Total Protein Albumin Lipase Urine Color Urine Appearance Urine pH Ur Specific [place] Urine Protein Urine Glucose (UA) Urine Ketones Urine Blood Urine Nitrite Ur Leukocyte Esterase COVID-19 (IESHA) Negative COVID-[employer] See Note Blood Type Antibody Screen 02/06/21 02/06/21 02/06/21 09:18 12:03 12:03 MCV MCH MCHC RDW Plt Count MPV Immature Gran % (Auto) Neut % (Auto) Lymph % (Auto) Graves % (Auto) Eos % (Auto) Baso % (Auto) Lymph # (Auto) Graves # (Auto) Eos # (Auto) Baso # (Auto) Abs Immat Gran (auto) Absolute Neuts (auto) Absolute Nucleated RBC Nucleated RBC % (auto) PT INR APTT Anion Gap Estim Creat Clear Calc Estimated GFR Random Glucose Lactic Acid Lactic Acid Fup @ 2Hr 2.0 Calcium Magnesium Total Bilirubin Direct Bilirubin AST ALT Alkaline Phosphatase Total Protein Albumin Lipase Urine Color YELLOW Urine Appearance HAZY Urine pH 6.0 Ur Specific [place] 1.025 Urine Protein TRACE Urine Glucose (UA) NEG Urine Ketones 5 Urine Blood NEG Urine Nitrite NEG Ur Leukocyte Esterase NEG COVID-19 (IESHA) COVID-19 Clin Com Blood Type O Positive Antibody Screen NEGATIVE <BASHIR Harrison - Last Filed: 02/06/21 13:53> Imaging Radiologist's Impressions: Impressions Abdomen Ultrasound 02/06/21 08:53 IMPRESSION: Similar appearance to the gallbladder with gallbladder wall thickening and edema compared to December 2020 exam. Acalculus cholecystitis should be considered. This could be better evaluated with HIDA scan if clinically indicated. Differential includes gallbladder wall changes related to liver disease, low albumin and cholangitis. 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 evening -Eliquis on hold, should be ok to continue DVT prophylaxis dose of lovenox for now Leukocytosis Likely related to acute cholecystitis. Does not meet SIRS criteria. No evidenc e of sepsis Elevated lactic acid Likely secondary to dehydration from vomiting. No evidence of sepsis. Mild EUSEBIO Creatinine January 16 0.85, today 1.09 -IVF -follow renal function GERD -Continue omeprazole BPH -continue finasteride, tamsulosin HLD -Continue statin Thank you for allowing us to participate in the care of this patient. We will follow along with you. dvt ppx - lovenox code status - full code Attending Dr. Hernandez <BASHIR Harrison - Last Filed: 02/06/21 13:53>
--- NOTE | 2021-02-06 16:23 | PC.NURSE ---
attempted to give report. Renée thakkar unavilable. will attempt again in 10 minutes
[2021-02-06] MEDS: Tamsulosin HCL 0.4 MG CAPSULE PO (20:30)
[2021-02-06] MEDS: Atorvastatin Calcium 10 MG TABLET PO (20:30)
[2021-02-07] MEDS: Temazepam 15 MG CAPSULE PO (00:14)
[2021-02-07] MEDS: HYDROmorphone HCl 0.5 MG/0.5 ML SYRINGE IVPUSH ×2 (00:14→06:13)
[2021-02-07] MEDS: Dextrose 5 % and 0.9 % NaCl 1,000 ML 100 ML IVCONT ×3 (00:17→19:33)
[2021-02-07] MEDS: Piperacillin Sodium/Tazobactam 3.375 GM in 0.9 % Sodium Chloride 50 ML IV ×4 (03:17→20:59)
[2021-02-07] MEDS: ondansetron HCL 4 MG/2 ML VIAL IVPUSH ×2 (06:13→12:59)
[2021-02-07 06:49] LABS: Basophils Percent Auto 0.2 % (0-2); Hematocrit 43.3 % (42-52); Hemoglobin 14.2 g/dl (14.0-18.0); Imm Gran Abs Auto 0.09 X10*3/uL (0.00-0.03); Imm Gran Pct Auto 0.6 % (0.0-0.4); MANUAL DIFF FLAG SCAN; Mean Corpuscular HGB Conc 32.8 g/dl (31.0-36.0); Mean Corpuscular Hemoglobin 30.1 pg (27.0-33.0); Mean Corpuscular Volume 91.9 fL (80-98); Mean Platelet Volume 10.6 fL (9.4-12.4); Monocytes Absolute Auto 1.6 X10*3/uL (0.1-1.2); Neutrophils Absolute Auto 11.7 X10*3/uL (2.0-8.3); Neutrophils Percent Auto 81.2 % (45-73); Platelet Count 187 X10*3/uL (160-400); Red Blood Count 4.71 X10*6/uL (4.60-5.80); SCAN SMEAR FLAG 1; White Blood Count 14.4 X10*3/uL (4.8-10.8)
[2021-02-07 07:13] LABS: Anion Gap 11 (12-20); Blood Urea Nitrogen 17 mg/dL (9-16); Calcium 8.8 mg/dL (8.4-10.2); Carbon Dioxide 24 mmol/L (22-29); Chloride 109 mmol/L (96-108); Creatinine Clr Calc Pharmacy 75.5; Estimated Glomerular Filt Rate > 60; Glucose Random 147 mg/dL (60-115); Potassium 4.3 mmol/L (3.3-5.1); Sodium 140 mmol/L (135-145)
[2021-02-07 07:16] LABS: SLIDE REVIEW VERIFIED
[2021-02-07 07:41] VITALS: BP 124/55; PULSE 60; RESP 16; TEMP 36.3; O2SAT 91
[2021-02-07 08:08] VITALS: RESP 20
[2021-02-07] MEDS: Morphine Sulfate 4 MG/ML CARTRIDGE 5 MG IVPUSH ×4 (08:08→20:58)
--- NOTE | 2021-02-07 09:22 | PM.HPGS ---
History of Present Illness History of Present Illness Date of Service: 02/07/21 Chief complaint: Acute Cholecystitis Narrative: Yayo Ramirez is a 80 year old male Admitted with diagnosis of acute cholecystitis. he was previously admitted on 01/16/2021 for similar complaints of abdominal pain in the upper abdomen. The pain was felt into his back and seem to be associated with fatty food intake. Reports eating a hamburger prior to the onset of the current episode of pain. Previous workup with an ultrasound and CT revealed a thickened gallbladder wall but no evidence of cholelithiasis. He was subsequently evaluated at [facility] with a HIDA scan which revealed nonvisualization of the gallbladder but normal passage of the contrast into intestine. Findings were suggestive of acute cholecystitis. Arrangements were made for him to be seen by General surgery at [facility]. When the pain returned, he presented to the emergency department for further evaluation. He reports nausea and vomiting , and sometimes the pain is noted to improve after vomiting. A repeat ultrasound in the emergency department does reveal a thickened gallbladder wall with possible biliary sludge. Symptoms may be related to acalculous cholecystitis. Review of Systems Review of Systems: Yes all other systems are reviewed and are negative Constitutional: Constitutional: Reports anorexia, Reports fatigue and Reports poor appetite Cardiovascular: Cardiovascular: Reports epigastric discomfort, Denies rapid heart rate, Denies palpitations and Denies dyspnea on exertion Respiratory: Respiratory: Denies change in phlegm color, Denies chest congestion, Denies cough and Denies dyspnea on exertion Gastrointestinal: Gastrointestinal: Reports abdominal pain, Reports belching, Reports bloating, Reports heartburn, Denies diarrhea and Reports vomiting Musculoskeletal: Musculoskeletal: Reports no additional musculoskeletal complaints Endocrine: Endocrine: Reports fatigue and Denies palpitations PMF Past Medical History Medical History Abdominal pain BPH (benign prostatic hyperplasia) GERD (gastroesophageal reflux disease) HLD (hyperlipidemia) Hyperchloremia Left leg DVT Pulmonary embolism Functional capacity: independent ambulation Family History Family history: reviewed and not pertinent Surgical History Surgical History H/O hemorrhoidectomy Social History Social History Household Members: Spouse Housing: Apartment Do you presently have visiting nurse or other home services: No Alcohol intake: never Patient Tobacco Use Status: Former Tobacco user Tobacco use type: Cigarette Smoked in Last 30 Days: No e-Cigarette/Vaping Use: Never Used Patient Interested in Nicotine Replacement: No Patient Given Instructions on How to Stop Smoking: No (patient already quit) Second Hand Smoke Exposure: No Use of substances other than those prescribed or required for medical reasons: No Currently Displaying Signs/Symptoms of Drug Intoxication Withdrawal: No Have you been hit, kicked, punched, or otherwise hurt by someone within the past year? If so, by whom?: No Do you feel safe in your current relationship?: Yes Is there a partner from a previous relationship who is making you feel unsafe now?: No Are you made to feel afraid or neglected: No Advance Directives: No Advance Directives Information Provided: No Do you have thoughts of harming others: None Do you have a plan to hurt others: No Plan Recently lost weight without trying: No How much weight loss: Not applicable Eating poorly because of decreased appetite: No Nutrition screen score: 0 Nutrition Risks: No Nutritional Risk Poor oral hygiene: No Current occupational status: retired [employer] Allergies Allergy/AdvReac Type Severity Reaction Status Date / Time oxycodone Allergy Unknown vomiting Verified 11/05/19 00:00 Active Medications: Current Medications Generic Name Dose Route Start Last Admin Trade Name Freq PRN Reason Stop Dose Admin Acetaminophen 650 mg 02/06/21 11:53 Acetaminophen 325 Mg Tablet PO Q6H PRN Pain, Mild (Pain Scale 1-3) Atorvastatin Calcium 10 mg 02/06/21 21:00 02/06/21 20:30 Atorvastatin Calcium 10 Mg Tablet PO 10 mg BEDTIME KAYCEE Administration Enoxaparin Sodium 40 mg 02/06/21 11:00 02/06/21 11:19 Enoxaparin Sodium 40 Mg/0.4 Ml Syringe SUBCUT 40 mg Q24H KAYCEE Administration Finasteride 5 mg 02/07/21 09:00 Finasteride 5 Mg Tablet PO DAILY KAYCEE Dextrose/Sodium Chloride 1,000 mls @ 100 mls/hr 02/06/21 12:00 02/07/21 07:08 D5ns IVCONT Not Given .Q10H KAYCEE Piperacillin Sod/Tazobactam 50 mls @ 100 mls/hr 02/06/21 15:00 02/07/21 03:56 Sod 3.375 gm/ Sodium Chloride IV Infused Q6H KAYCEE Infusion Morphine Sulfate 5 mg 02/07/21 08:01 02/07/21 08:08 Morphine Sulfate 4 Mg/Ml Cartridge IVPUSH 5 mg Q2H PRN Administration Pain, Severe (Pain Scale 7-10) Omeprazole 20 mg 02/07/21 09:00 Omeprazole 20 Mg Capsule.Dr PO DAILY KAYCEE Ondansetron HCl 4 mg 02/06/21 11:53 02/07/21 06:13 Ondansetron Hcl 4 Mg/2 Ml Vial IVPUSH 4 mg QID PRN Administration Nausea Sodium Chloride 3 ml 02/06/21 16:00 02/07/21 07:08 0.9 % Sodium Chloride Flush 3 Ml Syringe IVFLUSH Not Given QSHIFT KAYCEE Tamsulosin HCl 0.4 mg 02/06/21 21:00 02/06/21 20:30 Tamsulosin Hcl 0.4 Mg Capsule PO 0.4 mg BEDTIME KAYCEE Administration Temazepam 15 mg 02/06/21 11:53 02/07/21 00:14 Temazepam 15 Mg Capsule PO 15 mg BEDTIME PRN Administration Insomnia Home Medications Medication Instructions Recorded Confirmed Last Taken Type Eliquis 1 tab PO BID 08/27/20 02/06/21 02/05/21 History finasteride 1 tab PO DAILY 08/27/20 02/06/21 02/05/21 History omeprazole 1 cap PO DAILY 08/27/20 02/06/21 02/05/21 History simvastatin 1 tab PO BEDTIME 08/27/20 02/06/21 02/05/21 History tamsulosin 1 cap PO BEDTIME 08/27/20 02/06/21 02/04/21 History Physical Exam Vital Signs: Vital Signs: Last Vital Signs Temp 97.4 F 02/07/21 07:41 Pulse 60 02/07/21 07:41 Resp 20 02/07/21 08:08 BP 124/55 L 02/07/21 07:41 Pulse Ox 91 L 02/07/21 07:41 Body Mass Index 31.8 Const: General: well developed, alert, awake, acute distress and ill appearing HENMT: Head: Yes normocephalic and Yes atraumatic Ears: hearing grossly normal bilaterally Eyes: Sclerae: sclerae normal EOM: EOMs intact bilaterally Resp: Other: breathing comfortably on room air, no shortness of breath Effort & Inspection: normal respiratory effort GI: Other: soft, tender in the epigastrium and right upper quadrant with a positive Leo sign, no rebound, no guarding, no rigidity, no scars or hernias Skin: Other: normal color, no rash, warm and dry Extrem: General: Yes no clubbing, cyanosis or edema Psych: Affect: Anxious affect present Results Results Labs: Short CBC 02/07/21 Range/Units 06:18 WBC 14.4 H (4.8-10.8) X10*3/uL Hgb 14.2 (14.0-18.0) g/dl Hct 43.3 (42-52) % Plt Count 187 (160-400) X10*3/uL BMP 02/06/21 02/07/21 09:02 06:17 Sodium 140 140 Potassium 4.4 4.3 Chloride 104 109 H Carbon Dioxide 25 24 BUN 21 H D 17 H Creatinine 1.09 0.93 Calcium 9.8 D 8.8 D Liver Function 02/06/21 Range/Units 09:01 Total Bilirubin 1.0 (0.0-1.0) mg/dL Direct Bilirubin 0.4 (0.0-0.5) mg/dL AST 24 (5-37) U/L ALT 14 (0-40) U/L Alkaline Phosphatase 146 H D (39-117) U/L Albumin 4.5 (3.5-5.0) g/dL Urine 02/06/21 Range/Units 12:03 Urine Color YELLOW Urine Appearance HAZY Urine pH 6.0 (5.0-8.0) Ur Specific [place] 1.025 (1.005-1.025) Urine Protein TRACE (NEG-TRACE) MG/DL Urine Glucose (UA) NEG (NEG) MG/DL Assessment and Plan (1) Acute cholecystitis: Status: Acute 80-year-old male patient long history of abdominal pain in the epigastrium with previous admissions for similar complaints. Pain is located mainly in the epigastrium right upper quadrant radiating into the back and seems to be associated with ingestion of fatty foods. Previous workup with CT and ultrasound were negative for gallstones however a thickened gallbladder wall was identified. HIDA scan performed elsewhere ([facility]) indicated nonvisualization of the gallbladder. Findings are suggestive of acalculous cholecystitis. He will be kept on IV antibiotics for today and scheduled for laparoscopic cholecystectomy tomorrow morning. I reviewed the procedure, risks, and alternatives with the patient, and he consents to the laparoscopic or possible open cholecystectomy. (2) Pulmonary embolism: Status: Acute Patient to be bridged on Lovenox, which will be held tomorrow in anticipation of surgery. Will restart Eliquis once stable from surgery. Quality Stroke Does the patient have a stroke diagnosis?: No VTE Prior VTE?: Yes VTE Risk Level:: Surgical - very high VTE Device Contraindication: N/A - Device Ordered VTE Drug Contraindication: N/A - Med Ordered Procedures Date of Service Date of Service: 02/07/21
[2021-02-07] MEDS: Omeprazole 20 MG CAPSULE.DR PO (09:26)
[2021-02-07] MEDS: Finasteride 5 MG TABLET PO (09:26)
[2021-02-07] MEDS: Enoxaparin Sodium 100 MG/ML SYRINGE SUBCUT ×2 (10:21→20:59)
[2021-02-07 10:22] VITALS: RESP 20
--- NOTE | 2021-02-07 12:20 | HO.PM.IMPN ---
Subjective Subjective Date of Service: 02/07/21 Interval History: the patient was seen and evaluated this morning Laying in bed, complaining of pain in his right upper quadrant Denies any fever, chills or shortness of breath No reported other overnight events. Systemic review: No fever, chills or weakness No chest pain, palpitation No shortness of breath or coughing Complaining of abdominal pain, no nausea or vomiting No urinary symptoms No any rash or wounds Physical Exam Vital Signs: Vital Signs: Last Vital Signs Temp 97.4 F 02/07/21 07:41 Pulse 60 02/07/21 07:41 Resp 20 02/07/21 10:22 BP 124/55 L 02/07/21 07:41 Pulse Ox 91 L 02/07/21 07:41 Body Mass Index 31.8 Const: Other: Constitutional : Alert, oriented, not in distress Neck : Normal inspection, Supple Cardiovascular : RRR, S1 S2, no lower extremity edema Respiratory : Good bilateral air entry, no crackles, wheezes or rhonchi Gastrointestinal: soft, lax, tenderness in the epigastric and right upper quadrant area Skin : Warm/Dry, No rash Neurological : Alert & oriented x3, No focal deficit Objective Data Current Medications Generic Name Dose Route Start Last Admin Trade Name Freq PRN Reason Stop Dose Admin Atorvastatin Calcium 10 mg 02/06/21 21:00 02/06/21 20:30 Atorvastatin Calcium 10 Mg Tablet PO 10 mg BEDTIME KAYCEE Administration Enoxaparin Sodium 100 mg 02/07/21 10:00 02/07/21 10:21 Enoxaparin Sodium 100 Mg/Ml Syringe SUBCUT 100 mg Q12H KAYCEE Administration Finasteride 5 mg 02/07/21 09:00 02/07/21 09:26 Finasteride 5 Mg Tablet PO 5 mg DAILY KAYCEE Administration Dextrose/Sodium Chloride 1,000 mls @ 100 mls/hr 02/06/21 12:00 02/07/21 10:30 D5ns IVCONT 100 mls/hr .Q10H KAYCEE Administration Piperacillin Sod/Tazobactam 50 mls @ 100 mls/hr 02/06/21 15:00 02/07/21 10:11 Sod 3.375 gm/ Sodium Chloride IV Infused Q6H KAYCEE Infusion Acetaminophen 1,000 mg in 100 mls @ 400 mls/hr 02/07/21 11:15 02/07/21 11:54 Ofirmev IV Infused Q6H KAYCEE Infusion Morphine Sulfate 5 mg 02/07/21 08:01 02/07/21 10:22 Morphine Sulfate 4 Mg/Ml Cartridge IVPUSH 5 mg Q2H PRN Administration Pain, Severe (Pain Scale 7-10) Omeprazole 20 mg 02/07/21 09:00 02/07/21 09:26 Omeprazole 20 Mg Capsule.Dr PO 20 mg DAILY KAYCEE Administration Ondansetron HCl 4 mg 02/06/21 11:53 02/07/21 06:13 Ondansetron Hcl 4 Mg/2 Ml Vial IVPUSH 4 mg QID PRN Administration Nausea Sodium Chloride 3 ml 02/06/21 16:00 02/07/21 07:08 0.9 % Sodium Chloride Flush 3 Ml Syringe IVFLUSH Not Given QSHIFT KAYCEE Tamsulosin HCl 0.4 mg 02/06/21 21:00 02/06/21 20:30 Tamsulosin Hcl 0.4 Mg Capsule PO 0.4 mg BEDTIME KAYCEE Administration Temazepam 15 mg 02/06/21 11:53 02/07/21 00:14 Temazepam 15 Mg Capsule PO 15 mg BEDTIME PRN Administration Insomnia Labs CBC & Chem 7: 02/07/21 06:18 02/07/21 06:17 Labs: Laboratory Results - last 24 hr 02/06/21 02/07/21 02/07/21 12:03 06:17 06:18 WBC 14.4 H RBC 4.71 Hgb 14.2 Hct 43.3 MCV 91.9 MCH 30.1 MCHC 32.8 RDW 13.0 Plt Count 187 MPV 10.6 Immature Gran % (Auto) 0.6 H Neut % (Auto) 81.2 H Lymph % (Auto) 7.0 L [place] % (Auto) 11.0 Eos % (Auto) 0.0 Baso % (Auto) 0.2 Lymph # (Auto) 1.0 L [place] # (Auto) 1.6 H Eos # (Auto) 0.0 Baso # (Auto) 0.0 Abs Immat Gran (auto) 0.09 H Absolute Neuts (auto) 11.7 H Absolute Nucleated RBC 0.000 Nucleated RBC % (auto) 0.0 Smear Tech's Comments VERIFIED Sodium 140 Potassium 4.3 Chloride 109 H Carbon Dioxide 24 Anion Gap 11 L BUN 17 H Creatinine 0.93 Estim Creat Clear Calc 75.5 Estimated GFR > 60 Random Glucose 147 H Lactic Acid Fup @ 2Hr 2.0 Calcium 8.8 D Microbiology Microbiology Results: Microbiology 02/06/21 09:02 Blood Culture - Preliminary Blood - Venous No growth after 24 hours. 02/06/21 09:01 Blood Culture - Preliminary Blood - Venous No growth after 24 hours. 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 We will follow along with you.
--- NOTE | 2021-02-07 12:35 | MHC.CM.PN ---
CM MET WITH PTS WHO WAS AT BEDSIDE PT WAS REPORTEDLY NAUSEOUS AND EXPERIENCING SIGNIFICANT PAIN. PTS CONFIRMS THE PT LIVES AT HOME WITH HER AND IS INDEPENDENT WITH ALL CARE AND MOBILITY AT BASELINE. SHE REPORTS HE HAS NO SERVICES AND NO DME. SHE REPORTS THE PT DOES HAVE A HCP COMPLETED AND SHE HAS A COPY AT HOME. CM INFORMED HER A COPY WOULD NEED TO BE ON FILE PRIOR TO PT GOING TO HIS PROCEDURE SCHEDULED FOR TOMORROW AND SHE REPORTS SHE WILL BRING IT TOMORROW MORNING. SHE CONFIRMS [facility]O IS PTS PCP. IMM DELIVERED CURRENT DC PLAN IS HOME WITH NO SERVICES PTS WILL TRANSPORT
[2021-02-07 12:58] VITALS: RESP 20
[2021-02-07 14:32] VITALS: BP 107/69; PULSE 100; RESP 32; TEMP 37.4; O2SAT 95
[2021-02-07] MEDS: Tamsulosin HCL 0.4 MG CAPSULE PO (20:59)
[2021-02-07] MEDS: Atorvastatin Calcium 10 MG TABLET PO (20:59)
[2021-02-07] MEDS: 0.9 % Sodium Chloride Flush 3 ML SYRINGE IVFLUSH (21:00)
[2021-02-07 23:35] VITALS: BP 92/42; PULSE 67; RESP 18; TEMP 36.3; O2SAT 94
[2021-02-08] VITALS (19 sets, daily range): BP systolic 102–159; BP diastolic 50–81; PULSE 54–87; RESP 14–22; TEMP 36.4–37.4; O2SAT 88–97
[2021-02-08] MEDS: Piperacillin Sodium/Tazobactam 3.375 GM in 0.9 % Sodium Chloride 50 ML IV ×4 (02:38→20:21)
[2021-02-08] MEDS: Morphine Sulfate 4 MG/ML CARTRIDGE 5 MG IVPUSH ×3 (03:46→20:19)
[2021-02-08] MEDS: Dextrose 5 % and 0.9 % NaCl 1,000 ML 100 ML IVCONT ×2 (05:01→17:03)
--- NOTE | 2021-02-08 07:29 | MHC.SHP ---
Pre-Procedural Eval Section A The patient is an INPATIENT: Yes Section B Chief Complaint: Acute Cholecystitis Allergies: Allergies Allergy/AdvReac Type Severity Reaction Status Date / Time oxycodone Allergy Unknown vomiting Verified 11/05/19 00:00 Plan Diagnosis/Plan: Unchanged I have reviewed the history and physical and performed a pertinent physical examination on my patient. No changes have occurred unless specified.
[2021-02-08] MEDS: Omeprazole 20 MG CAPSULE.DR PO (08:09)
[2021-02-08] MEDS: Finasteride 5 MG TABLET PO (08:09)
--- NOTE | 2021-02-08 10:53 | HO.ANESPROP2 ---
FORMERLY [facility] Active Problems Active Problems: All Active Problems (Updated 02/06/21 @ 13:42 by BASHIR Harrison) Pulmonary embolism (Acute) Abdominal pain (Acute) Acute cholecystitis (Acute) Leukocytosis (Acute) Acidosis, lactic (Acute) GERD (gastroesophageal reflux disease) (Acute) Past Medical History Medical History Abdominal pain BPH (benign prostatic hyperplasia) GERD (gastroesophageal reflux disease) HLD (hyperlipidemia) Hyperchloremia Left leg DVT Pulmonary embolism Functional capacity: independent ambulation Surgical History Surgical History H/O hemorrhoidectomy Social History Social History Household Members: Spouse Housing: Apartment Do you presently have visiting nurse or other home services: No Alcohol intake: never Patient Tobacco Use Status: Former Tobacco user Tobacco use type: Cigarette Smoked in Last 30 Days: No e-Cigarette/Vaping Use: Never Used Patient Interested in Nicotine Replacement: No Patient Given Instructions on How to Stop Smoking: No (patient already quit) Second Hand Smoke Exposure: No Use of substances other than those prescribed or required for medical reasons: No Currently Displaying Signs/Symptoms of Drug Intoxication Withdrawal: No Have you been hit, kicked, punched, or otherwise hurt by someone within the past year? If so, by whom?: No Do you feel safe in your current relationship?: Yes Is there a partner from a previous relationship who is making you feel unsafe now?: No Are you made to feel afraid or neglected: No Are you DNR?: No Advance Directives: No Advance Directives Information Provided: No Do you have thoughts of harming others: None Do you have a plan to hurt others: No Plan Recently lost weight without trying: No How much weight loss: Not applicable Eating poorly because of decreased appetite: No Nutrition screen score: 0 Nutrition Risks: No Nutritional Risk Poor oral hygiene: No Current occupational status: retired Meds Allergies Allergy/AdvReac Type Severity Reaction Status Date / Time oxycodone Allergy Unknown Anaphylaxis Verified 02/08/21 10:08 Active Medications: Current Medications Generic Name Dose Route Start Last Admin Trade Name Freq PRN Reason Stop Dose Admin Atorvastatin Calcium 10 mg 02/06/21 21:00 02/07/21 20:59 Atorvastatin Calcium 10 Mg Tablet PO 10 mg BEDTIME KAYCEE Administration Enoxaparin Sodium 100 mg 02/07/21 10:00 02/07/21 20:59 Enoxaparin Sodium 100 Mg/Ml Syringe SUBCUT 100 mg Q12H KAYCEE Administration Finasteride 5 mg 02/07/21 09:00 02/08/21 08:09 Finasteride 5 Mg Tablet PO 5 mg DAILY KAYCEE Administration Dextrose/Sodium Chloride 1,000 mls @ 100 mls/hr 02/06/21 12:00 02/08/21 05:01 D5ns IVCONT 100 mls/hr .Q10H KAYCEE Administration Piperacillin Sod/Tazobactam 50 mls @ 100 mls/hr 02/06/21 15:00 02/08/21 08:48 Sod 3.375 gm/ Sodium Chloride IV Infused Q6H KAYCEE Infusion Acetaminophen 1,000 mg in 100 mls @ 400 mls/hr 02/07/21 11:15 02/08/21 05:54 Ofirmev IV Infused Q6H KAYCEE Infusion Morphine Sulfate 5 mg 02/07/21 08:01 02/08/21 06:25 Morphine Sulfate 4 Mg/Ml Cartridge IVPUSH 5 mg Q2H PRN Administration Pain, Severe (Pain Scale 7-10) Omeprazole 20 mg 02/07/21 09:00 02/08/21 08:09 Omeprazole 20 Mg Capsule.Dr PO 20 mg DAILY KAYCEE Administration Ondansetron HCl 4 mg 02/06/21 11:53 02/07/21 12:59 Ondansetron Hcl 4 Mg/2 Ml Vial IVPUSH 4 mg QID PRN Administration Nausea Sodium Chloride 3 ml 02/06/21 16:00 02/08/21 08:08 0.9 % Sodium Chloride Flush 3 Ml Syringe IVFLUSH Not Given QSHIFT KAYCEE Tamsulosin HCl 0.4 mg 02/06/21 21:00 02/07/21 20:59 Tamsulosin Hcl 0.4 Mg Capsule PO 0.4 mg BEDTIME KAYCEE Administration Temazepam 15 mg 02/06/21 11:53 02/07/21 00:14 Temazepam 15 Mg Capsule PO 15 mg BEDTIME PRN Administration Insomnia Home Medications Medication Instructions Recorded Confirmed Last Taken Type Eliquis 1 tab PO BID 01/03/1002/06/21 02/05/21 History finasteride 1 tab PO DAILY 08/27/20 02/06/21 02/05/21 History omeprazole 1 cap PO DAILY 08/27/20 02/06/21 02/05/21 History simvastatin 1 tab PO BEDTIME 08/27/20 02/06/21 02/05/21 History tamsulosin 1 cap PO BEDTIME 08/27/20 02/06/21 02/04/21 History Exam Exam Date and Time: February 08, 2021 1053 Height,Weight and Vital Signs: Height 5 ft 9 in Weight 98 kg Last Vital Signs Temp 99.3 F 02/08/21 10:15 Pulse 68 02/08/21 10:15 Resp 16 02/08/21 10:15 BP 129/68 02/08/21 10:15 Pulse Ox 96 02/08/21 10:15 Pertinent Lab Results Pertinent Lab Results: Laboratory Tests 02/06/21 02/06/21 02/06/21 09:01 09:01 09:02 WBC 15.1 H RBC 5.50 Hgb 16.5 Hct 49.7 MCV 90.4 MCH 30.0 MCHC 33.2 RDW 12.6 Plt Count 230 MPV 10.5 Immature Gran % (Auto) 0.4 Neut % (Auto) 84.7 H Lymph % (Auto) 6.6 L [place] % (Auto) 8.1 Eos % (Auto) 0.0 Baso % (Auto) 0.2 Lymph # (Auto) 1.0 L [place] # (Auto) 1.2 Eos # (Auto) 0.0 Baso # (Auto) 0.0 Abs Immat Gran (auto) 0.06 H Absolute Neuts (auto) 12.8 H Absolute Nucleated RBC 0.000 Nucleated RBC % (auto) 0.0 Smear Tech's Comments PT INR APTT Sodium Potassium Chloride Carbon Dioxide Anion Gap BUN Creatinine Estim Creat Clear Calc Estimated GFR Random Glucose Lactic Acid 2.8 H* Lactic Acid Fup @ 2Hr Calcium Magnesium 2.0 Total Bilirubin 1.0 Direct Bilirubin 0.4 AST 24 ALT 14 Alkaline Phosphatase 146 H D Total Protein 7.3 Albumin 4.5 Lipase 12 Urine Color Urine Appearance Urine pH Ur Specific [place] Urine Protein Urine Glucose (UA) Urine Ketones Urine Blood Urine Nitrite Ur Leukocyte Esterase COVID-19 (IESHA) COVID-19 Clin Com Blood Type Antibody Screen 02/06/21 02/06/21 02/06/21 09:02 09:02 09:04 WBC RBC Hgb Hct MCV MCH MCHC RDW Plt Count MPV Immature Gran % (Auto) Neut % (Auto) Lymph % (Auto) [place] % (Auto) Eos % (Auto) Baso % (Auto) Lymph # (Auto) [place] # (Auto) Eos # (Auto) Baso # (Auto) Abs Immat Gran (auto) Absolute Neuts (auto) Absolute Nucleated RBC Nucleated RBC % (auto) Smear Tech's Comments PT 12.5 INR 1.1 APTT 35.9 Sodium 140 Potassium 4.4 Chloride 104 Carbon Dioxide 25 Anion Gap 15 BUN 21 H D Creatinine 1.09 Estim Creat Clear Calc 64.4 Estimated GFR > 60 Random Glucose 139 H D Lactic Acid Lactic Acid Fup @ 2Hr Calcium 9.8 D Magnesium Total Bilirubin Direct Bilirubin AST ALT Alkaline Phosphatase Total Protein Albumin Lipase Urine Color Urine Appearance Urine pH Ur Specific [place] Urine Protein Urine Glucose (UA) Urine Ketones Urine Blood Urine Nitrite Ur Leukocyte Esterase COVID-19 (IESHA) Negative COVID-[facility] Com See Note Blood Type Antibody Screen 02/06/21 02/06/21 02/06/21 09:18 12:03 12:03 WBC RBC Hgb Hct MCV MCH MCHC RDW Plt Count MPV Immature Gran % (Auto) Neut % (Auto) Lymph % (Auto) [place] % (Auto) Eos % (Auto) Baso % (Auto) Lymph # (Auto) [place] # (Auto) Eos # (Auto) Baso # (Auto) Abs Immat Gran (auto) Absolute Neuts (auto) Absolute Nucleated RBC Nucleated RBC % (auto) Smear Tech's Comments PT INR APTT Sodium Potassium Chloride Carbon Dioxide Anion Gap BUN Creatinine Estim Creat Clear Calc Estimated GFR Random Glucose Lactic Acid Lactic Acid Fup @ 2Hr 2.0 Calcium Magnesium Total Bilirubin Direct Bilirubin AST ALT Alkaline Phosphatase Total Protein Albumin Lipase Urine Color YELLOW Urine Appearance HAZY Urine pH 6.0 Ur Specific [place] 1.025 Urine Protein TRACE Urine Glucose (UA) NEG Urine Ketones 5 Urine Blood NEG Urine Nitrite NEG Ur Leukocyte Esterase NEG COVID-19 ([facility]) [facility] Com Blood Type O Positive Antibody Screen NEGATIVE 02/07/21 02/07/21 06:17 06:18 WBC 14.4 H RBC 4.71 Hgb 14.2 Hct 43.3 MCV 91.9 MCH 30.1 MCHC 32.8 RDW 13.0 Plt Count 187 MPV 10.6 Immature Gran % (Auto) 0.6 H Neut % (Auto) 81.2 H Lymph % (Auto) 7.0 L [place] % (Auto) 11.0 Eos % (Auto) 0.0 Baso % (Auto) 0.2 Lymph # (Auto) 1.0 L [place] # (Auto) 1.6 H Eos # (Auto) 0.0 Baso # (Auto) 0.0 Abs Immat Gran (auto) 0.09 H Absolute Neuts (auto) 11.7 H Absolute Nucleated RBC 0.000 Nucleated RBC % (auto) 0.0 Smear Tech's Comments VERIFIED PT INR APTT Sodium 140 Potassium 4.3 Chloride 109 H Carbon Dioxide 24 Anion Gap 11 L BUN 17 H Creatinine 0.93 Estim Creat Clear Calc 75.5 Estimated GFR > 60 Random Glucose 147 H Lactic Acid Lactic Acid Fup @ 2Hr Calcium 8.8 D Magnesium Total Bilirubin Direct Bilirubin AST ALT Alkaline Phosphatase Total Protein Albumin Lipase Urine Color Urine Appearance Urine pH Ur Specific [place] Urine Protein Urine Glucose (UA) Urine Ketones Urine Blood Urine Nitrite Ur Leukocyte Esterase COVID-19 (IESHA) COVID-19 Clin Com Blood Type Antibody Screen Airway Mallampati Class: III (Missing tooth rt top) TM Dist: >3cm Neck ROM: Full Heart: rrr Lungs: cta Assessment and Plan Assessment Anesthesia Assessment: Anesthesia Plan Discussed and Chart Reviewed Final Anesthetic Review NPO: Yes ASA Class: III Final Preanesthetic Review: No Changes in Pt Med Stat and Consent Obtained/Reviewed Patient Risk: Intermediate Procedure Risk: Intermediate Anesthetic Plan Anesthetic Plan: GA Disposition: Standard PACU
--- NOTE | 2021-02-08 11:16 | PC.NURSE ---
patient venti mask was removed by anesthesia for patients baseline.
--- NOTE | 2021-02-08 11:17 | PC.NURSE ---
patients baseline of oxygen was 88 percent room air. repositioned two assist.
--- NOTE | 2021-02-08 13:51 | W.PM.OPN ---
Operative Note Operative Note Date of Service: 02/08/21 Narrative: Preoperative diagnosis: Acute acalculous cholecystitis Postoperative diagnosis: Same Procedure: Laparoscopic cholecystectomy Surgeon: Davian Moss MD Customer Management Specialist: No physician Anesthesia: General endotracheal Indications for procedure: 80-year-old male patient presenting with complaints of abdominal pain right upper quadrant intermittent for the past several years. Workup with ultrasound and CT was negative for gallstones however gallbladder wall was identified. The possibility of some sludge was identified on a previous ultrasound. Patient subsequently underwent a H[facility] scan at [facility] which revealed a nonvisualization of the gallbladder suggestive of acute cholecystitis. He presents today for emergent laparoscopic cholecystectomy. Operative findings: Newly inflamed gallbladder with evidence of chronic cholecystitis as well. Bile fluid appeared bloody in color. Specimen: Gallbladder Drain: Jose Francisco-Tejeda 10 Estimated blood loss: 25 mL Complications: None Procedure details: Patient was brought to the OR and placed in a supine position. After administering general anesthesia the patient's abdomen was prepped with ChloraPrep and draped in a sterile fashion. Local anesthesia consisting of 0.75% Sensorcaine with epinephrine was infiltrated in a periumbilical region. A 5 mm incision was made above the umbilicus in a transverse fashion. The Veress needle was then inserted while elevating abdominal cavity with towel clips. After positive drop test the abdomen was insufflated to a pressure of 15 mm of mercury. The Veress needle was then removed and a 5 mm trocar inserted. The camera was inserted in the abdomen explored. A 12 mm trocar was then placed in the epigastrium and 2 5 mm trocars placed in the right upper quadrant. The patient was placed in reverse Trendelenburg positioning and rotated to the left. Acutely inflamed gallbladder was identified with that he is to the anterior abdominal wall to the transverse mesocolon was also identified. The gallbladder was grasped with the fundus and retracted cephalad. The gallbladder was drained of its bloody fluid to loud better grasping. The infundibulum Was then grasped and retracted away from the liver bed. The Dolphin dissected was then used to dissect the peritoneum off the infundibulum to reveal the junction with the cystic duct. Cystic artery was noted slightly medial and posterior to the cystic duct. After obtaining a critical view the cystic duct was doubly clipped and divided. The cystic artery was then doubly clipped and divided. The gallbladder was then dissected off the liver bed using electrocautery with an L hook. Hemostasis was assured all times using the electrocautery. When the gallbladder is completely dissected off the liver bed was placed in an Endo-Catch bag and brought out through the epigastric incision. The gallbladder was sent to pathology for further examination. The abdomen was then re-examined. The liver bed was irrigated and suctioned dry. No bleeding or bile leak could be identified. The liver bed was covered with Surgicel and a large (10) Jose Francisco-Tejeda drain placed and brought out through the right lateral are site. This was connected to bulb suction. CO2 was then evacuated and all trocars removed. Fascia was closed at the epigastric incision using a [id number] Polysorb suture. Skin was closed in all incisions using a subcuticular 4 0 Polysorb suture. Sterile dressings consisting of Steri-Strips, 2 x 2 gauze, and Tegaderm were then applied. The patient tolerated the procedure well. Sponge instrument and needle counts reported as correct. The patient was transferred to PACU in stable condition.
--- NOTE | 2021-02-08 14:05 | HO.PM.IMPN ---
Subjective Subjective Date of Service: 02/08/21 Interval History: the patient was seen and evaluated this morning Laying in bed, complaining of pain in his right upper quadrant which seems little bit better Plan for surgery today Denies any fever, chills or shortness of breath No reported other overnight events. Systemic review: No fever, chills or weakness No chest pain, palpitation No shortness of breath or coughing Complaining of abdominal pain, no nausea or vomiting No urinary symptoms No any rash or wounds Physical Exam Vital Signs: Vital Signs: Last Vital Signs Temp 99.3 F 02/08/21 10:15 Pulse 71 02/08/21 11:20 Resp 22 H 02/08/21 11:20 BP 138/66 02/08/21 11:20 Pulse Ox 95 02/08/21 11:20 Body Mass Index 31.8 Const: Other: Constitutional : Alert, oriented, not in distress Neck : Normal inspection, Supple Cardiovascular : RRR, S1 S2, no lower extremity edema Respiratory : Good bilateral air entry, no crackles, wheezes or rhonchi Gastrointestinal: soft, lax, tenderness in the epigastric and right upper quadrant area Skin : Warm/Dry, No rash Neurological : Alert & oriented x3, No focal deficit Objective Data Current Medications Generic Name Dose Route Start Last Admin Trade Name Freq PRN Reason Stop Dose Admin Atorvastatin Calcium 10 mg 02/06/21 21:00 02/07/21 20:59 Atorvastatin Calcium 10 Mg Tablet PO 10 mg BEDTIME KAYCEE Administration Enoxaparin Sodium 100 mg 02/07/21 10:00 02/07/21 20:59 Enoxaparin Sodium 100 Mg/Ml Syringe SUBCUT 100 mg Q12H KAYCEE Administration Finasteride 5 mg 02/07/21 09:00 02/08/21 08:09 Finasteride 5 Mg Tablet PO 5 mg DAILY KAYCEE Administration Dextrose/Sodium Chloride 1,000 mls @ 100 mls/hr 02/06/21 12:00 02/08/21 05:01 D5ns IVCONT 100 mls/hr .Q10H KAYCEE Administration Piperacillin Sod/Tazobactam 50 mls @ 100 mls/hr 02/06/21 15:00 02/08/21 08:48 Sod 3.375 gm/ Sodium Chloride IV Infused Q6H KAYCEE Infusion Acetaminophen 1,000 mg in 100 mls @ 400 mls/hr 02/07/21 11:15 02/08/21 05:54 Ofirmev IV Infused Q6H KAYCEE Infusion Morphine Sulfate 5 mg 02/07/21 08:01 02/08/21 06:25 Morphine Sulfate 4 Mg/Ml Cartridge IVPUSH 5 mg Q2H PRN Administration Pain, Severe (Pain Scale 7-10) Omeprazole 20 mg 02/07/21 09:00 02/08/21 08:09 Omeprazole 20 Mg Capsule.Dr PO 20 mg DAILY KAYCEE Administration Ondansetron HCl 4 mg 02/06/21 11:53 02/07/21 12:59 Ondansetron Hcl 4 Mg/2 Ml Vial IVPUSH 4 mg QID PRN Administration Nausea Sodium Chloride 3 ml 02/06/21 16:00 02/08/21 08:08 0.9 % Sodium Chloride Flush 3 Ml Syringe IVFLUSH Not Given QSHIFT KAYCEE Tamsulosin HCl 0.4 mg 02/06/21 21:00 02/07/21 20:59 Tamsulosin Hcl 0.4 Mg Capsule PO 0.4 mg BEDTIME KAYCEE Administration Temazepam 15 mg 02/06/21 11:53 02/07/21 00:14 Temazepam 15 Mg Capsule PO 15 mg BEDTIME PRN Administration Insomnia Labs CBC & Chem 7: 02/07/21 06:18 02/07/21 06:17 Microbiology Microbiology Results: Microbiology 02/06/21 09:02 Blood Culture - Preliminary Blood - Venous No growth after 48 hours. 02/06/21 09:01 Blood Culture - Preliminary Blood - Venous No growth after 48 hours. 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 We will follow along with you.
[2021-02-08] MEDS: fentaNYL citrate/PF 100 MCG/2 ML VIAL 50 MCG IVPUSH ×2 (14:20→14:25)
[2021-02-08] MEDS: Morphine Sulfate 2 MG/ML CARTRIDGE IVPUSH (15:45)
[2021-02-08] MEDS: 0.9 % Sodium Chloride Flush 3 ML SYRINGE IVFLUSH ×2 (17:05→20:23)
[2021-02-08] MEDS: Atorvastatin Calcium 10 MG TABLET PO (20:09)
[2021-02-08] MEDS: Tamsulosin HCL 0.4 MG CAPSULE PO (20:09)
[2021-02-09] VITALS (9 sets, daily range): BP systolic 105–136; BP diastolic 51–71; PULSE 53–67; RESP 15–20; TEMP 35.6–36.9; O2SAT 93–96
[2021-02-09] MEDS: Morphine Sulfate 4 MG/ML CARTRIDGE 5 MG IVPUSH ×2 (00:35→04:05)
[2021-02-09] MEDS: Piperacillin Sodium/Tazobactam 3.375 GM in 0.9 % Sodium Chloride 50 ML IV ×4 (04:06→20:07)
[2021-02-09] MEDS: Dextrose 5 % and 0.9 % NaCl 1,000 ML 100 ML IVCONT ×3 (05:40→17:10)
[2021-02-09 06:09] LABS: MANUAL DIFF FLAG NO
[2021-02-09 06:12] LABS: Hematocrit 36.4 % (42-52); Hemoglobin 11.5 g/dl (14.0-18.0); Imm Gran Abs Auto 0.14 X10*3/uL (0.00-0.03); Imm Gran Pct Auto 1.3 % (0.0-0.4); Lymphocytes Absolute Auto 0.4 X10*3/uL (1.2-4.9); Lymphocytes Percent Auto 3.5 % (20-40); Mean Corpuscular HGB Conc 31.6 g/dl (31.0-36.0); Mean Corpuscular Hemoglobin 29.7 pg (27.0-33.0); Mean Corpuscular Volume 94.1 fL (80-98); Mean Platelet Volume 11.2 fL (9.4-12.4); Monocytes Absolute Auto 0.8 X10*3/uL (0.1-1.2); Monocytes Percent Auto 7.4 % (2-11); Neutrophils Absolute Auto 9.6 X10*3/uL (2.0-8.3); Neutrophils Percent Auto 87.8 % (45-73); Platelet Count 164 X10*3/uL (160-400); Red Blood Count 3.87 X10*6/uL (4.60-5.80); Red Cell Distribution Width 13.6 % (11.0-16.0)
[2021-02-09 06:44] LABS: Anion Gap 12 (12-20); Blood Urea Nitrogen 24 mg/dL (9-16); Carbon Dioxide 24 mmol/L (22-29); Chloride 109 mmol/L (96-108); Estimated Glomerular Filt Rate > 60; Glucose Random 144 mg/dL (60-115); Potassium 4.1 mmol/L (3.3-5.1); Sodium 141 mmol/L (135-145)
[2021-02-09] MEDS: Finasteride 5 MG TABLET PO (07:18)
[2021-02-09] MEDS: HYDROcodone Bit/Acetam 5/325 TABLET 1 TAB PO ×3 (07:18→22:52)
[2021-02-09] MEDS: Omeprazole 20 MG CAPSULE.DR PO (07:18)
[2021-02-09] MEDS: 0.9 % Sodium Chloride Flush 3 ML SYRINGE IVFLUSH ×3 (07:19→20:08)
--- NOTE | 2021-02-09 08:47 | HO.POSTANES ---
Post Anesthesia Evaluation Post Anesthesia Evaluation Vital Signs: Vital Signs Temp Pulse Resp BP Pulse Ox 02/09/21 07:15 96.9 F 63 20 110/51 L 94 02/09/21 04:05 20 02/09/21 03:15 97.4 F 59 20 113/54 L 93 02/09/21 00:35 18 02/09/21 00:00 98.4 F 62 18 131/70 93 Anesthesia: General Endotracheal-GETA Mental Status: Awake Pain Control: Satisfactory Nausea/Vomiting: None Hydration: Adequate Anesthesia-Related Issues: No Anes. Related Issues
--- NOTE | 2021-02-09 12:11 | P.PNGS_ITS ---
Subjective Subjective Date of Service: 02/09/21 Interval history: POD #1 s/p laparoscopic cholecytectomy for acalculus cholecystitis. Patient reports incisional pain, but denies nausea or vomiting. Physical Exam Vital Signs: Vital Signs: Last Vital Signs Temp 97.7 F 02/09/21 11:02 Pulse 53 02/09/21 11:02 Resp 18 02/09/21 11:02 BP 105/52 L 02/09/21 11:02 Pulse Ox 96 02/09/21 11:02 Body Mass Index 31.8 Const: General: no acute distress, alert and awake Orientation/consciousness: patient oriented x3 Resp: Effort & Inspection: normal respiratory effort GI: Other: soft, nondistended, incisions clean and intact. KAL draining moderate amounts of serosanginous output. Skin: General skin exam: no rashes or lesions noted Neuro: General: patient oriented x3 Extrem: General: Yes no clubbing, cyanosis or edema Progress Note: A&P Assessment and plan (1) Acute cholecystitis: Status: Acute Assessment and Plan: Postop day 1 following laparoscopic cholecystectomy for acute acalculous cholecystitis. He tolerated the procedure well and his breathing is improved. Patient is tolerating liquids without nausea or vomiting. I will advance to a regular diet (low-fat). Restart anticoagulation in a.m. Fall Risk Details Current Medications: Current Medications Generic Name Dose Route Start Last Admin Trade Name Freq PRN Reason Stop Dose Admin Hydrocodone Bitart/Acetaminophen 1 tab 02/08/21 16:12 02/09/21 07:18 Hydrocodone Bit/Acetam 5/325 Tablet PO 1 tab Q4H PRN Administration Pain, Moderate (Pain Scale 4-6 Atorvastatin Calcium 10 mg 02/06/21 21:00 02/08/21 20:09 Atorvastatin Calcium 10 Mg Tablet PO 10 mg BEDTIME KAYCEE Administration Enoxaparin Sodium 100 mg 02/07/21 10:00 02/07/21 20:59 Enoxaparin Sodium 100 Mg/Ml Syringe SUBCUT 100 mg Q12H KAYCEE Administration Fentanyl 50 mcg 02/08/21 14:20 02/08/21 14:25 Fentanyl Citrate/Pf 100 Mcg/2 Ml Vial IVPUSH 50 mcg Q5M PRN Administration Pain, Severe (Pain Scale 7-10) Fentanyl 50 mcg 02/08/21 14:22 Fentanyl Citrate/Pf 100 Mcg/2 Ml Vial IVPUSH Q5M PRN Pain, Severe (Pain Scale 7-10) Finasteride 5 mg 02/07/21 09:00 02/09/21 07:18 Finasteride 5 Mg Tablet PO 5 mg DAILY KAYCEE Administration Dextrose/Sodium Chloride 1,000 mls @ 100 mls/hr 02/06/21 12:00 02/09/21 10:20 D5ns IVCONT 100 mls/hr .Q10H KAYCEE Administration Piperacillin Sod/Tazobactam 50 mls @ 100 mls/hr 02/06/21 15:00 02/09/21 10:04 Sod 3.375 gm/ Sodium Chloride IV Infused Q6H KAYCEE Infusion Morphine Sulfate 5 mg 02/07/21 08:01 02/09/21 04:05 Morphine Sulfate 4 Mg/Ml Cartridge IVPUSH 5 mg Q2H PRN Administration Pain, Severe (Pain Scale 7-10) Omeprazole 20 mg 02/07/21 09:00 02/09/21 07:18 Omeprazole 20 Mg Capsule.Dr PO 20 mg DAILY KAYCEE Administration Ondansetron HCl 4 mg 02/06/21 11:53 02/07/21 12:59 Ondansetron Hcl 4 Mg/2 Ml Vial IVPUSH 4 mg QID PRN Administration Nausea Sodium Chloride 3 ml 02/06/21 16:00 02/09/21 07:19 0.9 % Sodium Chloride Flush 3 Ml Syringe IVFLUSH 3 ml QSHIFT KAYCEE Administration Tamsulosin HCl 0.4 mg 02/06/21 21:00 02/08/21 20:09 Tamsulosin Hcl 0.4 Mg Capsule PO 0.4 mg BEDTIME KAYCEE Administration Temazepam 15 mg 02/06/21 11:53 02/07/21 00:14 Temazepam 15 Mg Capsule PO 15 mg BEDTIME PRN Administration Insomnia Time Spent With Patient Time: Total time spent is greater than 50% in coordination of care (as document ed) at patient's floor/unit and/or counseling patient: Time with patient: 15 - 24 minutes Procedures Date of Service Date of Service: 02/09/21 Quality Stroke Does the patient have a stroke diagnosis?: No VTE Prior VTE?: Yes VTE Risk Level:: Surgical - very high VTE Device Contraindication: N/A - Device Ordered VTE Drug Contraindication: N/A - Med Ordered
[2021-02-09] MEDS: polyethylene glycoL 3350 17 GM POWD.PACK PO (13:32)
--- NOTE | 2021-02-09 14:03 | P.PNIM_ITS ---
Subjective Subjective Date of Service: 02/09/21 Interval History: the patient was seen and evaluated this morning Laying in bed, complaining of pain in his right upper quadrant which seems little bit better Plan for surgery today Denies any fever, chills or shortness of breath No reported other overnight events. Systemic review: No fever, chills or weakness No chest pain, palpitation No shortness of breath or coughing Complaining of abdominal pain, no nausea or vomiting No urinary symptoms No any rash or wounds Physical Exam Vital Signs: Vital Signs: Last Vital Signs Temp 97.7 F 02/09/21 11:02 Pulse 53 02/09/21 11:02 Resp 18 02/09/21 11:02 BP 105/52 L 02/09/21 11:02 Pulse Ox 96 02/09/21 11:02 Body Mass Index 31.8 Const: Other: Constitutional : Alert, oriented, not in distress Neck : Normal inspection, Supple Cardiovascular : RRR, S1 S2, no lower extremity edema Respiratory : Good bilateral air entry, no crackles, wheezes or rhonchi Gastrointestinal: soft, lax, tenderness in the epigastric and right upper quadrant area Skin : Warm/Dry, No rash Neurological : Alert & oriented x3, No focal deficit Objective Data Current Medications Generic Name Dose Route Start Last Admin Trade Name Freq PRN Reason Stop Dose Admin Hydrocodone Bitart/Acetaminophen 1 tab 02/08/21 16:12 02/09/21 13:31 Hydrocodone Bit/Acetam 5/325 Tablet PO 1 tab Q4H PRN Administration Pain, Moderate (Pain Scale 4-6 Atorvastatin Calcium 10 mg 02/06/21 21:00 02/08/21 20:09 Atorvastatin Calcium 10 Mg Tablet PO 10 mg BEDTIME KAYCEE Administration Enoxaparin Sodium 100 mg 02/07/21 10:00 02/07/21 20:59 Enoxaparin Sodium 100 Mg/Ml Syringe SUBCUT 100 mg Q12H KAYCEE Administration Fentanyl 50 mcg 02/08/21 14:20 02/08/21 14:25 Fentanyl Citrate/Pf 100 Mcg/2 Ml Vial IVPUSH 50 mcg Q5M PRN Administration Pain, Severe (Pain Scale 7-10) Fentanyl 50 mcg 02/08/21 14:22 Fentanyl Citrate/Pf 100 Mcg/2 Ml Vial IVPUSH Q5M PRN Pain, Severe (Pain Scale 7-10) Finasteride 5 mg 02/07/21 09:00 02/09/21 07:18 Finasteride 5 Mg Tablet PO 5 mg DAILY KAYCEE Administration Dextrose/Sodium Chloride 1,000 mls @ 100 mls/hr 02/06/21 12:00 02/09/21 10:20 D5ns IVCONT 100 mls/hr .Q10H KAYCEE Administration Piperacillin Sod/Tazobactam 50 mls @ 100 mls/hr 02/06/21 15:00 02/09/21 10:04 Sod 3.375 gm/ Sodium Chloride IV Infused Q6H KAYCEE Infusion Morphine Sulfate 5 mg 02/07/21 08:01 02/09/21 04:05 Morphine Sulfate 4 Mg/Ml Cartridge IVPUSH 5 mg Q2H PRN Administration Pain, Severe (Pain Scale 7-10) Omeprazole 20 mg 02/07/21 09:00 02/09/21 07:18 Omeprazole 20 Mg Capsule.Dr PO 20 mg DAILY KAYCEE Administration Ondansetron HCl 4 mg 02/06/21 11:53 02/07/21 12:59 Ondansetron Hcl 4 Mg/2 Ml Vial IVPUSH 4 mg QID PRN Administration Nausea Polyethylene Glycol 17 gm 02/09/21 12:44 02/09/21 13:32 Polyethylene Glycol 3350 17 Gm Powd.Pack PO 17 gm DAILY PRN Administration Constipation Sodium Chloride 3 ml 02/06/21 16:00 02/09/21 07:19 0.9 % Sodium Chloride Flush 3 Ml Syringe IVFLUSH 3 ml QSHIFT KAYCEE Administration Tamsulosin HCl 0.4 mg 02/06/21 21:00 02/08/21 20:09 Tamsulosin Hcl 0.4 Mg Capsule PO 0.4 mg BEDTIME KAYCEE Administration Temazepam 15 mg 02/06/21 11:53 02/07/21 00:14 Temazepam 15 Mg Capsule PO 15 mg BEDTIME PRN Administration Insomnia Labs CBC & Chem 7: 02/09/21 05:14 02/09/21 05:14 Labs: Laboratory Results - last 24 hr 02/09/21 02/09/21 05:14 05:14 WBC 11.0 H RBC 3.87 L Hgb 11.5 L Hct 36.4 L MCV 94.1 MCH 29.7 MCHC 31.6 RDW 13.6 Plt Count 164 MPV 11.2 Immature Gran % (Auto) 1.3 H Neut % (Auto) 87.8 H Lymph % (Auto) 3.[address] [place] % (Auto) 7.4 Eos % (Auto) 0.0 Baso % (Auto) 0.0 Lymph # (Auto) 0.[address] [place] # (Auto) 0.8 Eos # (Auto) 0.0 Baso # (Auto) 0.0 Abs Immat Gran (auto) 0.14 H Absolute Neuts (auto) 9.6 H Absolute Nucleated RBC 0.000 Nucleated RBC % (auto) 0.0 Sodium 141 Potassium 4.1 Chloride 109 H Carbon Dioxide 24 Anion Gap 12 BUN 24 H Creatinine 0.90 Estim Creat Clear Calc 78.0 Estimated GFR > 60 Random Glucose 144 H Calcium 8.0 L D Microbiology Microbiology Results: Microbiology 02/06/21 09:02 Blood Culture - Preliminary Blood - Venous No growth after 48 hours. 02/06/21 09:01 Blood Culture - Preliminary Blood - Venous No growth after 48 hours. 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 currently on anticoagulation with Eliquis presents to the emergency department with recurrent episode of abdominal pain and imaging suggestive of acute cholecystitis Acute hypoxic respiratory failure Secondary to pneumonia CXR showing atelectasis in the left lower lobe to, Likely secondary to abdominal pain and decreased effort of breathing Incentive spirometry Oxygen supplement, to wean down as tolerated Continue IV Zosyn for now Monitor respiratory status Acute cholecystitis Management per surgical team on zosyn h/o LLE DVT/PE To resume Eliquis tomorrow morning GERD Continue omeprazole BPH continue finasteride, tamsulosin HLD Continue statin Thank you for allowing us to participate in the care of this patient. We will follow along with you.
[2021-02-09] MEDS: Tamsulosin HCL 0.4 MG CAPSULE PO (20:07)
[2021-02-09] MEDS: Atorvastatin Calcium 10 MG TABLET PO (20:07)
[2021-02-10] VITALS (10 sets, daily range): BP systolic 109–170; BP diastolic 59–80; PULSE 57–72; RESP 16–20; TEMP 36.3–37.3; O2SAT 92–98
[2021-02-10] MEDS: Piperacillin Sodium/Tazobactam 3.375 GM in 0.9 % Sodium Chloride 50 ML IV (03:34)
[2021-02-10] MEDS: HYDROcodone Bit/Acetam 5/325 TABLET 1 TAB PO (03:34)
[2021-02-10] MEDS: Dextrose 5 % and 0.9 % NaCl 1,000 ML 100 ML IVCONT ×2 (03:34→16:06)
--- NOTE | 2021-02-10 09:00 | PM.PNGS ---
Subjective Subjective Date of Service: 02/10/21 Interval history: complains of sore throat; abdominal pain improved Physical Exam Vital Signs: Vital Signs: Last Vital Signs Temp 98.3 F 02/10/21 07:18 Pulse 57 02/10/21 07:18 Resp 18 02/10/21 07:18 BP 123/65 02/10/21 07:18 Pulse Ox 94 02/10/21 07:18 Oxygen Flow Rate 2 02/09/21 14:19 Body Mass Index 31.8 Const: General: cooperative, healthy appearing, comfortable, no acute distress, alert and awake Eyes: Sclerae: sclerae normal Resp: Effort & Inspection: normal respiratory effort GI: Other: soft, non-distended, normal BS, incisions clean and intact, KAL with scant sang discharge. Extrem: General: Yes edema Progress Note: A&P Assessment and plan (1) Acute cholecystitis: Status: Acute Assessment and Plan: Patient doing well, ambulating with assistance, tolerating po. Will d/c KAL later today. Starting Eliquis today d/c planning Fall Risk Details Current Medications: Current Medications Generic Name Dose Route Start Last Admin Trade Name Freq PRN Reason Stop Dose Admin Hydrocodone Bitart/Acetaminophen 1 tab 02/08/21 16:12 02/10/21 03:34 Hydrocodone Bit/Acetam 5/325 Tablet PO 1 tab Q4H PRN Administration Pain, Moderate (Pain Scale 4-6 Apixaban 5 mg 02/10/21 09:00 Apixaban 5 Mg Tablet PO BID KAYCEE Atorvastatin Calcium 10 mg 02/06/21 21:00 02/09/21 20:07 Atorvastatin Calcium 10 Mg Tablet PO 10 mg BEDTIME KAYCEE Administration Fentanyl 50 mcg 02/08/21 14:20 02/08/21 14:25 Fentanyl Citrate/Pf 100 Mcg/2 Ml Vial IVPUSH 50 mcg Q5M PRN Administration Pain, Severe (Pain Scale 7-10) Fentanyl 50 mcg 02/08/21 14:22 Fentanyl Citrate/Pf 100 Mcg/2 Ml Vial IVPUSH Q5M PRN Pain, Severe (Pain Scale 7-10) Finasteride 5 mg 02/07/21 09:00 02/09/21 07:18 Finasteride 5 Mg Tablet PO 5 mg DAILY KAYCEE Administration Dextrose/Sodium Chloride 1,000 mls @ 100 mls/hr 02/06/21 12:00 02/10/21 03:34 D5ns IVCONT 100 mls/hr .Q10H KAYCEE Administration Piperacillin Sod/Tazobactam 50 mls @ 100 mls/hr 02/06/21 15:00 02/10/21 04:19 Sod 3.375 gm/ Sodium Chloride IV Infused Q6H KAYCEE Infusion Morphine Sulfate 5 mg 02/07/21 08:01 02/09/21 04:05 Morphine Sulfate 4 Mg/Ml Cartridge IVPUSH 5 mg Q2H PRN Administration Pain, Severe (Pain Scale 7-10) Multi-Ingred Medicated Throat [place] 1 spray 02/10/21 08:57 Throat [place], Medicated 20 Ml Bottle MUCOUS MEM Q2H PRN Sore Throat Omeprazole 20 mg 02/07/21 09:00 02/09/21 07:18 Omeprazole 20 Mg Capsule.Dr PO 20 mg DAILY KAYCEE Administration Ondansetron HCl 4 mg 02/06/21 11:53 02/07/21 12:59 Ondansetron Hcl 4 Mg/2 Ml Vial IVPUSH 4 mg QID PRN Administration Nausea Polyethylene Glycol 17 gm 02/09/21 12:44 02/09/21 13:32 Polyethylene Glycol 3350 17 Gm Powd.Pack PO 17 gm DAILY PRN Administration Constipation Sodium Chloride 3 ml 02/06/21 16:00 02/09/21 20:08 0.9 % Sodium Chloride Flush 3 Ml Syringe IVFLUSH 3 ml QSHIFT KAYCEE Administration Tamsulosin HCl 0.4 mg 02/06/21 21:00 02/09/21 20:07 Tamsulosin Hcl 0.4 Mg Capsule PO 0.4 mg BEDTIME KAYCEE Administration Temazepam 15 mg 02/06/21 11:53 02/07/21 00:14 Temazepam 15 Mg Capsule PO 15 mg BEDTIME PRN Administration Insomnia Time Spent With Patient Time: Total time spent is greater than 50% in coordination of care (as documented) at patient's floor/unit and/or counseling patient: Time with patient: 15 - 24 minutes Procedures Date of Service Date of Service: 02/10/21 Quality Stroke Does the patient have a stroke diagnosis?: No VTE Prior VTE?: Yes VTE Risk Level:: Surgical - very high VTE Device Contraindication: N/A - Device Ordered VTE Drug Contraindication: N/A - Med Ordered
[2021-02-10] MEDS: Omeprazole 20 MG CAPSULE.DR PO (09:05)
[2021-02-10] MEDS: Finasteride 5 MG TABLET PO (09:05)
[2021-02-10] MEDS: Apixaban 5 MG TABLET PO ×2 (09:05→20:51)
[2021-02-10] MEDS: 0.9 % Sodium Chloride Flush 3 ML SYRINGE IVFLUSH ×3 (09:05→20:52)
--- NOTE | 2021-02-10 11:00 | HO.PM.IMPN ---
Subjective Subjective Date of Service: 02/10/21 Interval History: abd pain, no bm yet Cardiovascular Cardiovascular: Reports no additional cardiovascular complaints Respiratory Respiratory: Reports no additional respiratory complaints Physical Exam Vital Signs: Vital Signs: Last Vital Signs Temp 98.3 F 02/10/21 07:18 Pulse 57 02/10/21 07:18 Resp 18 02/10/21 07:18 BP 123/65 02/10/21 07:18 Pulse Ox 94 02/10/21 07:18 Oxygen Flow Rate 2 02/09/21 14:19 Body Mass Index 31.8 Const General: cooperative, healthy appearing, comfortable, no acute distress, alert and awake Eyes Sclerae: sclerae normal Resp Effort & Inspection: normal respiratory effort GI Other: soft, non-distended, normal BS, incisions clean and intact, KAL with scant sang discharge. Extrem General: Yes edema Objective Data Current Medications Generic Name Dose Route Start Last Admin Trade Name Freq PRN Reason Stop Dose Admin Hydrocodone Bitart/Acetaminophen 1 tab 02/08/21 16:12 02/10/21 03:34 Hydrocodone Bit/Acetam 5/325 Tablet PO 1 tab Q4H PRN Administration Pain, Moderate (Pain Scale 4-6 Apixaban 5 mg 02/10/21 09:00 02/10/21 09:05 Apixaban 5 Mg Tablet PO 5 mg BID KAYCEE Administration Atorvastatin Calcium 10 mg 02/06/21 21:00 02/09/21 20:07 Atorvastatin Calcium 10 Mg Tablet PO 10 mg BEDTIME KAYCEE Administration Fentanyl 50 mcg 02/08/21 14:20 02/08/21 14:25 Fentanyl Citrate/Pf 100 Mcg/2 Ml Vial IVPUSH 50 mcg Q5M PRN Administration Pain, Severe (Pain Scale 7-10) Finasteride 5 mg 02/07/21 09:00 02/10/21 09:05 Finasteride 5 Mg Tablet PO 5 mg DAILY KAYCEE Administration Dextrose/Sodium Chloride 1,000 mls @ 100 mls/hr 02/06/21 12:00 02/10/21 03:34 D5ns IVCONT 100 mls/hr .Q10H KAYCEE Administration Morphine Sulfate 5 mg 02/07/21 08:01 02/09/21 04:05 Morphine Sulfate 4 Mg/Ml Cartridge IVPUSH 5 mg Q2H PRN Administration Pain, Severe (Pain Scale 7-10) Multi-Ingred Medicated Throat [place] 1 spray 02/10/21 08:57 Throat [place], Medicated 20 Ml Bottle MUCOUS MEM Q2H PRN Sore Throat Omeprazole 20 mg 02/07/21 09:00 02/10/21 09:05 Omeprazole 20 Mg Capsule.Dr PO 20 mg DAILY KAYCEE Administration Ondansetron HCl 4 mg 02/06/21 11:53 02/07/21 12:59 Ondansetron Hcl 4 Mg/2 Ml Vial IVPUSH 4 mg QID PRN Administration Nausea Polyethylene Glycol 17 gm 02/09/21 12:44 02/09/21 13:32 Polyethylene Glycol 3350 17 Gm Powd.Pack PO 17 gm DAILY PRN Administration Constipation Sodium Chloride 3 ml 02/06/21 16:00 02/10/21 09:05 0.9 % Sodium Chloride Flush 3 Ml Syringe IVFLUSH 3 ml QSHIFT KAYCEE Administration Tamsulosin HCl 0.4 mg 02/06/21 21:00 02/09/21 20:07 Tamsulosin Hcl 0.4 Mg Capsule PO 0.4 mg BEDTIME KAYCEE Administration Temazepam 15 mg 02/06/21 11:53 02/07/21 00:14 Temazepam 15 Mg Capsule PO 15 mg BEDTIME PRN Administration Insomnia Labs CBC & Chem 7: 02/09/21 05:14 02/09/21 05:14 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
[2021-02-10] MEDS: Morphine Sulfate 4 MG/ML CARTRIDGE 5 MG IVPUSH (16:00)
[2021-02-10] MEDS: Tamsulosin HCL 0.4 MG CAPSULE PO (20:52)
[2021-02-10] MEDS: Atorvastatin Calcium 10 MG TABLET PO (20:52)
[2021-02-11] VITALS (7 sets, daily range): BP systolic 121–164; BP diastolic 60–78; PULSE 60–67; RESP 12–20; TEMP 36.7–37.2; O2SAT 94–96
[2021-02-11] MEDS: Dextrose 5 % and 0.9 % NaCl 1,000 ML 100 ML IVCONT (02:22)
[2021-02-11] MEDS: Morphine Sulfate 4 MG/ML CARTRIDGE 5 MG IVPUSH (02:30)
--- NOTE | 2021-02-11 07:52 | PM.PNGS ---
Subjective Subjective Date of Service: 02/11/21 Interval history: Patient required nasal O2 overnight. Reports bilateral leg swelling. Has some abdominal pain associated with KAL drain. Reports passing some flatus; no bm. Physical Exam Vital Signs: Vital Signs: Last Vital Signs Temp 98.9 F 02/11/21 04:00 Pulse 61 02/11/21 04:00 Resp 12 02/11/21 04:00 BP 121/60 02/11/21 04:00 Pulse Ox 95 02/11/21 04:00 Oxygen Flow Rate 2 02/10/21 14:00 Body Mass Index 31.8 Const: Other: awake, alert, in NAD Resp: Other: nasal O2 on; no respiratory distress GI: Other: wounds clean and intact, abdomen is soft, obese. KAL removed, DSD applied. Extrem: Other: bilateral LE edema Progress Note: A&P Assessment and plan (1) Pulmonary embolism: Status: Acute Assessment and Plan: increased leg edema and SOB this morning; patient back on Eliquis since yesterday. Will recheck doppler studies both extremities. Stop IVFs as may be fluid overload. (2) Acute cholecystitis: Status: Acute Assessment and Plan: s/p lap cholecystecomy; POD #3. Patient eating fairly well without nausea or vomiting. KAL removed today. Fall Risk Details Current Medications: Current Medications Generic Name Dose Route Start Last Admin Trade Name Freq PRN Reason Stop Dose Admin Hydrocodone Bitart/Acetaminophen 1 tab 02/08/21 16:12 02/10/21 03:34 Hydrocodone Bit/Acetam 5/325 Tablet PO 1 tab Q4H PRN Administration Pain, Moderate (Pain Scale 4-6 Apixaban 5 mg 02/10/21 09:00 02/10/21 20:51 Apixaban 5 Mg Tablet PO 5 mg BID KAYCEE Administration Atorvastatin Calcium 10 mg 02/06/21 21:00 02/10/21 20:52 Atorvastatin Calcium 10 Mg Tablet PO 10 mg BEDTIME KAYCEE Administration Finasteride 5 mg 02/07/21 09:00 02/10/21 09:05 Finasteride 5 Mg Tablet PO 5 mg DAILY KAYCEE Administration Dextrose/Sodium Chloride 1,000 mls @ 100 mls/hr 02/06/21 12:00 02/11/21 02:22 D5ns IVCONT 100 mls/hr .Q10H KAYCEE Administration Morphine Sulfate 5 mg 02/07/21 08:01 02/11/21 02:30 Morphine Sulfate 4 Mg/Ml Cartridge IVPUSH 5 mg Q2H PRN Administration Pain, Severe (Pain Scale 7-10) Multi-Ingred Medicated Throat [place] 1 spray 02/10/21 08:57 02/10/21 23:51 Throat [place], Medicated 20 Ml Bottle MUCOUS MEM 1 spray Q2H PRN Administration Sore Throat Omeprazole 20 mg 02/07/21 09:00 02/10/21 09:05 Omeprazole 20 Mg Capsule.Dr PO 20 mg DAILY KAYCEE Administration Ondansetron HCl 4 mg 02/06/21 11:53 02/07/21 12:59 Ondansetron Hcl 4 Mg/2 Ml Vial IVPUSH 4 mg QID PRN Administration Nausea Polyethylene Glycol 17 gm 02/09/21 12:44 02/09/21 13:32 Polyethylene Glycol 3350 17 Gm Powd.Pack PO 17 gm DAILY PRN Administration Constipation Sodium Chloride 3 ml 02/06/21 16:00 02/10/21 20:52 0.9 % Sodium Chloride Flush 3 Ml Syringe IVFLUSH 3 ml QSHIFT KAYCEE Administration Tamsulosin HCl 0.4 mg 02/06/21 21:00 02/10/21 20:52 Tamsulosin Hcl 0.4 Mg Capsule PO 0.4 mg BEDTIME KAYCEE Administration Temazepam 15 mg 02/06/21 11:53 02/07/21 00:14 Temazepam 15 Mg Capsule PO 15 mg BEDTIME PRN Administration Insomnia Time Spent With Patient Time: Total time spent is greater than 50% in coordination of care (as documented) at patient's floor/unit and/or counseling patient: Time with patient: 15 - 24 minutes Procedures Date of Service Date of Service: 02/11/21 Quality Stroke Does the patient have a stroke diagnosis?: No VTE Prior VTE?: Yes VTE Risk Level:: Surgical - very high VTE Device Contraindication: N/A - Device Ordered VTE Drug Contraindication: N/A - Med Ordered
[2021-02-11] MEDS: Omeprazole 20 MG CAPSULE.DR PO (10:03)
[2021-02-11] MEDS: Finasteride 5 MG TABLET PO (10:03)
[2021-02-11] MEDS: 0.9 % Sodium Chloride Flush 3 ML SYRINGE IVFLUSH ×3 (10:03→20:40)
[2021-02-11] MEDS: Apixaban 5 MG TABLET PO ×2 (10:03→20:39)
[2021-02-11] MEDS: HYDROcodone Bit/Acetam 5/325 TABLET 1 TAB PO ×3 (10:05→21:03)
--- NOTE | 2021-02-11 10:38 | HO.PM.IMPN ---
Subjective Subjective Date of Service: 02/11/21 Interval History: pain with deep breath Cardiovascular Cardiovascular: Reports no additional cardiovascular complaints Respiratory Respiratory: Reports no additional respiratory complaints Physical Exam Vital Signs: Vital Signs: Last Vital Signs Temp 98.8 F 02/11/21 07:53 Pulse 65 02/11/21 07:53 Resp 20 02/11/21 07:53 BP 164/74 H 02/11/21 07:53 Pulse Ox 96 02/11/21 07:53 Oxygen Flow Rate 2 02/10/21 14:00 Body Mass Index 31.8 Const Other: awake, alert, in NAD Resp Other: nasal O2 on; no respiratory distress GI Other: wounds clean and intact, abdomen is soft, obese. Extrem Other: bilateral LE edema Objective Data Current Medications Generic Name Dose Route Start Last Admin Trade Name Freq PRN Reason Stop Dose Admin Hydrocodone Bitart/Acetaminophen 1 tab 02/08/21 16:12 02/11/21 10:05 Hydrocodone Bit/Acetam 5/325 Tablet PO 1 tab Q4H PRN Administration Pain, Moderate (Pain Scale 4-6 Apixaban 5 mg 02/10/21 09:00 02/11/21 10:03 Apixaban 5 Mg Tablet PO 5 mg BID KAYCEE Administration Atorvastatin Calcium 10 mg 02/06/21 21:00 02/10/21 20:52 Atorvastatin Calcium 10 Mg Tablet PO 10 mg BEDTIME KAYCEE Administration Finasteride 5 mg 02/07/21 09:00 02/11/21 10:03 Finasteride 5 Mg Tablet PO 5 mg DAILY KAYCEE Administration Morphine Sulfate 5 mg 02/07/21 08:01 02/11/21 02:30 Morphine Sulfate 4 Mg/Ml Cartridge IVPUSH 5 mg Q2H PRN Administration Pain, Severe (Pain Scale 7-10) Multi-Ingred Medicated Throat [place] 1 spray 02/10/21 08:57 02/10/21 23:51 Throat [place], Medicated 20 Ml Bottle MUCOUS MEM 1 spray Q2H PRN Administration Sore Throat Omeprazole 20 mg 02/07/21 09:00 02/11/21 10:03 Omeprazole 20 Mg Capsule.Dr PO 20 mg DAILY KAYCEE Administration Ondansetron HCl 4 mg 02/06/21 11:53 02/07/21 12:59 Ondansetron Hcl 4 Mg/2 Ml Vial IVPUSH 4 mg QID PRN Administration Nausea Polyethylene Glycol 17 gm 02/09/21 12:44 02/09/21 13:32 Polyethylene Glycol 3350 17 Gm Powd.Pack PO 17 gm DAILY PRN Administration Constipation Sodium Chloride 3 ml 02/06/21 16:00 02/11/21 10:03 0.9 % Sodium Chloride Flush 3 Ml Syringe IVFLUSH 3 ml QSHIFT KAYCEE Administration Tamsulosin HCl 0.4 mg 02/06/21 21:00 02/10/21 20:52 Tamsulosin Hcl 0.4 Mg Capsule PO 0.4 mg BEDTIME KAYCEE Administration Temazepam 15 mg 02/06/21 11:53 02/07/21 00:14 Temazepam 15 Mg Capsule PO 15 mg BEDTIME PRN Administration Insomnia Labs CBC & Chem 7: 02/09/21 05:14 02/09/21 05:14 Quality Stroke Does the patient have a stroke diagnosis?: No VTE Prior VTE?: Yes VTE Risk Level:: Surgical - very high VTE Device Contraindication: N/A - Device Ordered VTE Drug Contraindication: N/A - Med Ordered Assessment and Plan (1) Pulmonary embolism: Status: Acute (2) Acute cholecystitis: Status: Acute Assessment and Plan: 80-year-old male with a history of BPH, GERD, hyperlipidemia, 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
[2021-02-11] MEDS: Tamsulosin HCL 0.4 MG CAPSULE PO (20:39)
[2021-02-11] MEDS: Atorvastatin Calcium 10 MG TABLET PO (20:39)
[2021-02-12] VITALS (9 sets, daily range): BP systolic 126–168; BP diastolic 65–82; PULSE 63–72; RESP 18–20; TEMP 36.9–37.8; O2SAT 92–98
[2021-02-12 05:11] LABS: Hematocrit 37.6 % (42-52); Hemoglobin 12.4 g/dl (14.0-18.0); Mean Corpuscular Hemoglobin 29.9 pg (27.0-33.0); Mean Corpuscular Volume 90.6 fL (80-98); Mean Platelet Volume 10.5 fL (9.4-12.4); Platelet Count 210 X10*3/uL (160-400); Red Blood Count 4.15 X10*6/uL (4.60-5.80); Red Cell Distribution Width 13.1 % (11.0-16.0); White Blood Count 9.3 X10*3/uL (4.8-10.8)
[2021-02-12 05:45] LABS: Anion Gap 13 (12-20); B Type Natriuretic Peptide 270 pg/mL (<100); Blood Urea Nitrogen 11 mg/dL (9-16); Calcium 8.4 mg/dL (8.4-10.2); Carbon Dioxide 26 mmol/L (22-29); Chloride 104 mmol/L (96-108); Creatinine Clr Calc Pharmacy 101.8; Estimated Glomerular Filt Rate > 60; Glucose Fasting 91 mg/dL (60-99); Potassium 3.8 mmol/L (3.3-5.1); Sodium 139 mmol/L (135-145)
[2021-02-12] MEDS: HYDROcodone Bit/Acetam 5/325 TABLET 1 TAB PO ×2 (06:23→20:11)
--- NOTE | 2021-02-12 08:02 | PM.PNGS ---
Subjective Subjective Date of Service: 02/12/21 Interval history: Patient up and ambulating independently. Tolerating diet without nausea or vomiting. Reports several bowel movements in the last 24 hours. O2 saturation 93% on 2 L nasal cannula. Physical Exam Vital Signs: Vital Signs: Last Vital Signs Temp 98.6 F 02/12/21 07:18 Pulse 68 02/12/21 07:18 Resp 20 02/12/21 07:18 BP 126/66 02/12/21 07:18 Pulse Ox 93 02/12/21 07:18 Oxygen Flow Rate 2 02/11/21 14:00 Body Mass Index 31.8 Const: General: cooperative, comfortable, no acute distress, well developed and alert Resp: Effort & Inspection: normal respiratory effort GI: Other: Soft, nondistended, nontender, intact incisions following laparoscopic cholecystectomy Skin: Other: Warm, dry, no rash, normal color Extrem: Other: Bilateral lower extremity edema, compression stockings in place Progress Note: A&P Assessment and plan (1) Acute cholecystitis: Status: Acute Assessment and Plan: Patient is tolerating regular diet without nausea or vomiting. His abdominal pain is well controlled. From an abdominal standpoint he is ready for discharge to home. (2) Pulmonary embolism: Status: Acute Assessment and Plan: Patient still requiring nasal O2 for low O2 sats. Patient may require home O2. Will defer to hospitalist team for management of the hypoxia. Fall Risk Details Current Medications: Current Medications Generic Name Dose Route Start Last Admin Trade Name Freq PRN Reason Stop Dose Admin Hydrocodone Bitart/Acetaminophen 1 tab 02/08/21 16:12 02/12/21 06:23 Hydrocodone Bit/Acetam 5/325 Tablet PO 1 tab Q4H PRN Administration Pain, Moderate (Pain Scale 4-6 Apixaban 5 mg 02/10/21 09:00 02/11/21 20:39 Apixaban 5 Mg Tablet PO 5 mg BID KAYCEE Administration Atorvastatin Calcium 10 mg 02/06/21 21:00 02/11/21 20:39 Atorvastatin Calcium 10 Mg Tablet PO 10 mg BEDTIME KAYCEE Administration Finasteride 5 mg 02/07/21 09:00 02/11/21 10:03 Finasteride 5 Mg Tablet PO 5 mg DAILY KAYCEE Administration Morphine Sulfate 5 mg 02/07/21 08:01 02/11/21 02:30 Morphine Sulfate 4 Mg/Ml Cartridge IVPUSH 5 mg Q2H PRN Administration Pain, Severe (Pain Scale 7-10) Multi-Ingred Medicated Throat [place] 1 spray 02/10/21 08:57 02/11/21 18:30 Throat [place], Medicated 20 Ml Bottle MUCOUS MEM 1 spray Q2H PRN Administration Sore Throat Omeprazole 20 mg 02/07/21 09:00 02/11/21 10:03 Omeprazole 20 Mg Capsule.Dr PO 20 mg DAILY KAYCEE Administration Ondansetron HCl 4 mg 02/06/21 11:53 02/07/21 12:59 Ondansetron Hcl 4 Mg/2 Ml Vial IVPUSH 4 mg QID PRN Administration Nausea Polyethylene Glycol 17 gm 02/09/21 12:44 02/09/21 13:32 Polyethylene Glycol 3350 17 Gm Powd.Pack PO 17 gm DAILY PRN Administration Constipation Sodium Chloride 3 ml 02/06/21 16:00 02/11/21 20:40 0.9 % Sodium Chloride Flush 3 Ml Syringe IVFLUSH 3 ml QSHIFT KAYCEE Administration Tamsulosin HCl 0.4 mg 02/06/21 21:00 02/11/21 20:39 Tamsulosin Hcl 0.4 Mg Capsule PO 0.4 mg BEDTIME KAYCEE Administration Time Spent With Patient Time: Total time spent is greater than 50% in coordination of care (as documented) at patient's floor/unit and/or counseling patient: Time with patient: 15 - 24 minutes Procedures Date of Service Date of Service: 02/12/21 Quality Stroke Does the patient have a stroke diagnosis?: No VTE Prior VTE?: Yes VTE Risk Level:: Surgical - very high VTE Device Contraindication: N/A - Device Ordered VTE Drug Contraindication: N/A - Med Ordered
[2021-02-12] MEDS: Omeprazole 20 MG CAPSULE.DR PO (08:17)
[2021-02-12] MEDS: Apixaban 5 MG TABLET PO ×2 (08:18→20:11)
[2021-02-12] MEDS: 0.9 % Sodium Chloride Flush 3 ML SYRINGE IVFLUSH ×2 (08:19→20:11)
[2021-02-12] MEDS: Finasteride 5 MG TABLET PO (08:52)
--- NOTE | 2021-02-12 08:57 | PC.NURSE ---
Pt on room air per MD; previously on 1 L.
--- NOTE | 2021-02-12 10:21 | P.PNIM_ITS ---
Subjective Subjective Date of Service: 02/12/21 Interval History: feeling better, had bm Cardiovascular Cardiovascular: Reports no additional cardiovascular complaints Respiratory Respiratory: Reports no additional respiratory complaints Physical Exam Vital Signs: Vital Signs: Last Vital Signs Temp 98.6 F 02/12/21 07:18 Pulse 68 02/12/21 07:18 Resp 20 02/12/21 07:18 BP 126/66 02/12/21 07:18 Pulse Ox 93 02/12/21 07:18 Oxygen Flow Rate 2 02/11/21 14:00 Body Mass Index 31.8 Const Other: awake, alert, in NAD Resp Other: no respiratory distress GI Other: wounds clean and intact, abdomen is soft, obese. Extrem Other: bilateral LE edema Objective Data Current Medications Generic Name Dose Route Start Last Admin Trade Name Freq PRN Reason Stop Dose Admin Hydrocodone Bitart/Acetaminophen 1 tab 02/08/21 16:12 02/12/21 06:23 Hydrocodone Bit/Acetam 5/325 Tablet PO 1 tab Q4H PRN Administration Pain, Moderate (Pain Scale 4-6 Apixaban 5 mg 02/10/21 09:00 02/12/21 08:18 Apixaban 5 Mg Tablet PO 5 mg BID KAYCEE Administration Atorvastatin Calcium 10 mg 02/06/21 21:00 02/11/21 20:39 Atorvastatin Calcium 10 Mg Tablet PO 10 mg BEDTIME KAYCEE Administration Finasteride 5 mg 02/07/21 09:00 02/12/21 08:52 Finasteride 5 Mg Tablet PO 5 mg DAILY KAYCEE Administration Morphine Sulfate 5 mg 02/07/21 08:01 02/11/21 02:30 Morphine Sulfate 4 Mg/Ml Cartridge IVPUSH 5 mg Q2H PRN Administration Pain, Severe (Pain Scale 7-10) Multi-Ingred Medicated Throat [place] 1 spray 02/10/21 08:57 02/11/21 18:30 Throat [place], Medicated 20 Ml Bottle MUCOUS MEM 1 spray Q2H PRN Administration Sore Throat Omeprazole 20 mg 02/07/21 09:00 02/12/21 08:17 Omeprazole 20 Mg Capsule.Dr PO 20 mg DAILY KAYCEE Administration Ondansetron HCl 4 mg 02/06/21 11:53 02/07/21 12:59 Ondansetron Hcl 4 Mg/2 Ml Vial IVPUSH 4 mg QID PRN Administration Nausea Polyethylene Glycol 17 gm 02/09/21 12:44 02/09/21 13:32 Polyethylene Glycol 3350 17 Gm Powd.Pack PO 17 gm DAILY PRN Administration Constipation Sodium Chloride 3 ml 02/06/21 16:00 02/12/21 08:19 0.9 % Sodium Chloride Flush 3 Ml Syringe IVFLUSH 3 ml QSHIFT KAYCEE Administration Tamsulosin HCl 0.4 mg 02/06/21 21:00 02/11/21 20:39 Tamsulosin Hcl 0.4 Mg Capsule PO 0.4 mg BEDTIME KAYCEE Administration Labs CBC & Chem 7: 02/12/21 04:53 02/12/21 04:53 Labs: Laboratory Results - last 24 hr 02/12/21 02/12/21 02/12/21 04:53 04:53 04:53 WBC 9.3 RBC 4.15 L Hgb 12.4 L Hct 37.6 L MCV 90.6 MCH 29.9 MCHC 33.0 RDW 13.1 Plt Count 210 D MPV 10.5 Absolute Nucleated RBC 0.000 Nucleated RBC % (auto) 0.0 Sodium 139 Potassium 3.8 Chloride 104 Carbon Dioxide 26 Anion Gap 13 BUN 11 D Creatinine 0.69 Estim Creat Clear Calc 101.8 Estimated GFR > 60 Fasting Glucose 91 Calcium 8.4 B-Natriuretic Peptide 270 H Microbiology Microbiology Results: Microbiology 02/06/21 09:02 Blood Culture - Final Blood - Venous No growth after 5 days. 02/06/21 09:01 Blood Culture - Final Blood - Venous No growth after 5 days. 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
[2021-02-12] MEDS: Tamsulosin HCL 0.4 MG CAPSULE PO (20:11)
[2021-02-12] MEDS: Atorvastatin Calcium 10 MG TABLET PO (20:11)
[2021-02-13] VITALS (8 sets, daily range): BP systolic 118–177; BP diastolic 58–91; PULSE 65–73; RESP 16–18; TEMP 36.2–37.7; O2SAT 92–94
[2021-02-13] MEDS: 0.9 % Sodium Chloride Flush 3 ML SYRINGE IVFLUSH ×3 (02:09→17:57)
[2021-02-13] MEDS: HYDROcodone Bit/Acetam 5/325 TABLET 1 TAB PO ×5 (03:26→21:42)
[2021-02-13] MEDS: Finasteride 5 MG TABLET PO (08:18)
[2021-02-13] MEDS: Apixaban 5 MG TABLET PO ×2 (08:18→21:41)
[2021-02-13] MEDS: Omeprazole 20 MG CAPSULE.DR PO (08:18)
--- NOTE | 2021-02-13 10:20 | P.PNGS_ITS ---
Subjective Subjective Date of Service: 02/13/21 Interval history: feels well no shortness of breath, wants to walk and move more, eating ok, liquid stools normal urine, pain is getting less Physical Exam Vital Signs: Vital Signs: Last Vital Signs Temp 97.2 F 02/13/21 07:52 Pulse 65 02/13/21 07:52 Resp 16 02/13/21 07:52 BP 152/75 H 02/13/21 07:52 Pulse Ox 94 02/13/21 07:52 Oxygen Flow Rate 2 02/11/21 14:00 Body Mass Index 31.8 Const: Other: awake, alert, in NAD General: cooperative, healthy appearing, comfortable, no acute distress, well developed, alert, awake, acute distress and ill appearing Nutritional Appearance: well nourished Orientation/consciousness: patient oriented x3 Limitations: No language barrier HENMT: Head: Yes normocephalic and Yes atraumatic Ears: hearing grossly normal bilaterally Eyes: Sclerae: sclerae normal EOM: EOMs intact bilaterally Chest: Chest palpation & inspection: normal inspection of the chest Resp: Other: nasal O2 on; no respiratory distress Effort & Inspection: normal respiratory effort and no respiratory distress Cardio: Rate: regular rate Rhythm: regular rhythm GI: Other: Soft, nondistended, nontender, intact incisions following laparoscopic cholecystectomy Skin: Other: Warm, dry, no rash, normal color General skin exam: no rashes or lesions noted Neuro: General: patient oriented x3 Cranial nerves: Yes CN's II-XII intact bilaterally and Yes Bilaterally intact EOM present Extrem: Other: Bilateral lower extremity edema, compression stockings in place General: Yes no clubbing, cyanosis or edema and Yes edema Psych: Affect: Anxious affect present Progress Note: A&P Assessment and plan (1) Pulmonary embolism: Status: Acute (2) Acute cholecystitis: Status: Acute Assessment and Plan: 80-year-old male with a history of BPH, GERD, hyperlipidemia, 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 did not meet criteria for o2 at home. pt may have sleep apnea and have baseline hypoxia . will try to keep off oxygen today nd see how he does walk and ambulate plan to dc home tomorrow if all goes well - pt and understand and agree with the plan Fall Risk Details Current Medications: Current Medications Generic Name Dose Route Start Last Admin Trade Name Freq PRN Reason Stop Dose Admin Hydrocodone Bitart/Acetaminophen 1 tab 02/08/21 16:12 02/13/21 08:18 Hydrocodone Bit/Acetam 5/325 Tablet PO 1 tab Q4H PRN Administration Pain, Moderate (Pain Scale 4-6 Apixaban 5 mg 02/10/21 09:00 02/13/21 08:18 Apixaban 5 Mg Tablet PO 5 mg BID KAYCEE Administration Atorvastatin Calcium 10 mg 02/06/21 21:00 02/12/21 20:11 Atorvastatin Calcium 10 Mg Tablet PO 10 mg BEDTIME KAYCEE Administration Finasteride 5 mg 02/07/21 09:00 02/13/21 08:18 Finasteride 5 Mg Tablet PO 5 mg DAILY KAYCEE Administration Morphine Sulfate 5 mg 02/07/21 08:01 02/11/21 02:30 Morphine Sulfate 4 Mg/Ml Cartridge IVPUSH 5 mg Q2H PRN Administration Pain, Severe (Pain Scale 7-10) Multi-Ingred Medicated Throat [place] 1 spray 02/10/21 08:57 02/13/21 08:18 Throat [place], Medicated 20 Ml Bottle MUCOUS MEM 1 spray Q2H PRN Administration Sore Throat Omeprazole 20 mg 02/07/21 09:00 02/13/21 08:18 Omeprazole 20 Mg Capsule.Dr PO 20 mg DAILY KAYCEE Administration Ondansetron HCl 4 mg 02/06/21 11:53 02/07/21 12:59 Ondansetron Hcl 4 Mg/2 Ml Vial IVPUSH 4 mg QID PRN Administration Nausea Polyethylene Glycol 17 gm 02/09/21 12:44 02/09/21 13:32 Polyethylene Glycol 3350 17 Gm Powd.Pack PO 17 gm DAILY PRN Administration Constipation Sodium Chloride 3 ml 02/06/21 16:00 02/13/21 08:18 0.9 % Sodium Chloride Flush 3 Ml Syringe IVFLUSH 3 ml QSHIFT KAYCEE Administration Tamsulosin HCl 0.4 mg 02/06/21 21:00 02/12/21 20:11 Tamsulosin Hcl 0.4 Mg Capsule PO 0.4 mg BEDTIME KAYCEE Administration Time Spent With Patient Time: Total time spent is greater than 50% in coordination of care (as documented) at patient's floor/unit and/or counseling patient: Time with patient: 25 - 35 minutes Procedures Date of Service Date of Service: 02/13/21 Quality Stroke Does the patient have a stroke diagnosis?: No VTE Prior VTE?: Yes VTE Risk Level:: Surgical - very high VTE Device Contraindication: N/A - Device Ordered VTE Drug Contraindication: N/A - Med Ordered
--- NOTE | 2021-02-13 10:37 | HO.PM.IMPN ---
Subjective Subjective Date of Service: 02/13/21 Interval History: feling well Cardiovascular Cardiovascular: Reports no additional cardiovascular complaints Gastrointestinal Gastrointestinal: Reports no additional gastrointestinal complaints Physical Exam Vital Signs: Vital Signs: Last Vital Signs Temp 97.2 F 02/13/21 07:52 Pulse 65 02/13/21 07:52 Resp 16 02/13/21 07:52 BP 152/75 H 02/13/21 07:52 Pulse Ox 94 02/13/21 07:52 Oxygen Flow Rate 2 02/11/21 14:00 Body Mass Index 31.8 General: AO X 3, no acute distress Resp: CTA bilateral CVS: S1,S2,RRR Neuro: motor grossly intact Psych: appropriate affect Objective Data Current Medications Generic Name Dose Route Start Last Admin Trade Name Freq PRN Reason Stop Dose Admin Hydrocodone Bitart/Acetaminophen 1 tab 02/08/21 16:12 02/13/21 08:18 Hydrocodone Bit/Acetam 5/325 Tablet PO 1 tab Q4H PRN Administration Pain, Moderate (Pain Scale 4-6 Apixaban 5 mg 02/10/21 09:00 02/13/21 08:18 Apixaban 5 Mg Tablet PO 5 mg BID KAYCEE Administration Atorvastatin Calcium 10 mg 02/06/21 21:00 02/12/21 20:11 Atorvastatin Calcium 10 Mg Tablet PO 10 mg BEDTIME KAYCEE Administration Finasteride 5 mg 02/07/21 09:00 02/13/21 08:18 Finasteride 5 Mg Tablet PO 5 mg DAILY KAYCEE Administration Morphine Sulfate 5 mg 02/07/21 08:01 02/11/21 02:30 Morphine Sulfate 4 Mg/Ml Cartridge IVPUSH 5 mg Q2H PRN Administration Pain, Severe (Pain Scale 7-10) Multi-Ingred Medicated Throat [place] 1 spray 02/10/21 08:57 02/13/21 08:[address] [place], Medicated 20 Ml Bottle MUCOUS MEM 1 spray Q2H PRN Administration Sore Throat Omeprazole 20 mg 02/07/21 09:00 02/13/21 08:18 Omeprazole 20 Mg Capsule.Dr PO 20 mg DAILY KAYCEE Administration Ondansetron HCl 4 mg 02/06/21 11:53 02/07/21 12:59 Ondansetron Hcl 4 Mg/2 Ml Vial IVPUSH 4 mg QID PRN Administration Nausea Polyethylene Glycol 17 gm 02/09/21 12:44 02/09/21 13:32 Polyethylene Glycol 3350 17 Gm Powd.Pack PO 17 gm DAILY PRN Administration Constipation Sodium Chloride 3 ml 02/06/21 16:00 02/13/21 08:18 0.9 % Sodium Chloride Flush 3 Ml Syringe IVFLUSH 3 ml QSHIFT KAYCEE Administration Tamsulosin HCl 0.4 mg 02/06/21 21:00 02/12/21 20:11 Tamsulosin Hcl 0.4 Mg Capsule PO 0.4 mg BEDTIME KAYCEE Administration Labs CBC & Chem 7: 02/12/21 04:53 02/12/21 04:53 Quality Stroke Does the patient have a stroke diagnosis?: No VTE Prior VTE?: Yes VTE Risk Level:: Surgical - very high VTE Device Contraindication: N/A - Device Ordered VTE Drug Contraindication: N/A - Med Ordered Assessment and Plan (1) Pulmonary embolism: Status: Acute (2) Acute cholecystitis: Status: Acute Assessment and Plan: 80-year-old male with a history of BPH, GERD, hyperlipidemia, 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
[2021-02-13] MEDS: Atorvastatin Calcium 10 MG TABLET PO (21:41)
[2021-02-13] MEDS: Tamsulosin HCL 0.4 MG CAPSULE PO (21:41)
[2021-02-14] MEDS: HYDROcodone Bit/Acetam 5/325 TABLET 1 TAB PO ×3 (01:41→14:12)
[2021-02-14] MEDS: 0.9 % Sodium Chloride Flush 3 ML SYRINGE IVFLUSH ×2 (01:41→07:55)
[2021-02-14 03:41] VITALS: BP 127/64; PULSE 61; RESP 18; TEMP 36.3; O2SAT 96
[2021-02-14 07:37] VITALS: BP 133/83; PULSE 64; RESP 18; TEMP 36.4; O2SAT 92
[2021-02-14] MEDS: Finasteride 5 MG TABLET PO (07:55)
[2021-02-14] MEDS: Apixaban 5 MG TABLET PO (07:55)
[2021-02-14] MEDS: Omeprazole 20 MG CAPSULE.DR PO (07:55)
--- NOTE | 2021-02-14 10:34 | HO.PM.IMPN ---
Subjective Subjective Date of Service: 02/14/21 Interval History: odynophagia Cardiovascular Cardiovascular: Reports no additional cardiovascular complaints Gastrointestinal Gastrointestinal: Reports no additional gastrointestinal complaints Physical Exam Vital Signs: Vital Signs: Last Vital Signs Temp 97.5 F 02/14/21 07:37 Pulse 64 02/14/21 07:37 Resp 18 02/14/21 07:37 BP 133/83 02/14/21 07:37 Pulse Ox 92 02/14/21 07:37 Oxygen Flow Rate 2 02/11/21 14:00 Body Mass Index 31.8 General: AO X 3, no acute distress tongue - oral candidiasis Resp: CTA bilateral CVS: S1,S2,RRR Neuro: motor grossly intact Psych: appropriate affect Objective Data Current Medications Generic Name Dose Route Start Last Admin Trade Name Freq PRN Reason Stop Dose Admin Hydrocodone Bitart/Acetaminophen 1 tab 02/08/21 16:12 02/14/21 07:55 Hydrocodone Bit/Acetam 5/325 Tablet PO 1 tab Q4H PRN Administration Pain, Moderate (Pain Scale 4-6 Apixaban 5 mg 02/10/21 09:00 02/14/21 07:55 Apixaban 5 Mg Tablet PO 5 mg BID KAYCEE Administration Atorvastatin Calcium 10 mg 02/06/21 21:00 02/13/21 21:41 Atorvastatin Calcium 10 Mg Tablet PO 10 mg BEDTIME KAYCEE Administration Finasteride 5 mg 02/07/21 09:00 02/14/21 07:55 Finasteride 5 Mg Tablet PO 5 mg DAILY KAYCEE Administration Lidocaine/Diphenhydr/Alum/Mg/Simeth 10 ml 02/14/21 10:00 Mag&Al/Sim/Diphenhyd/Lidocaine 10 Ml Oral.Susp PO Q4H PRN odynopshagia Protocol Morphine Sulfate 5 mg 02/07/21 08:01 02/11/21 02:30 Morphine Sulfate 4 Mg/Ml Cartridge IVPUSH 5 mg Q2H PRN Administration Pain, Severe (Pain Scale 7-10) Multi-Ingred Medicated Throat [place] 1 spray 02/10/21 08:57 02/14/21 07:55 Throat [place], Medicated 20 Ml Bottle MUCOUS MEM 1 spray Q2H PRN Administration Sore Throat Nystatin 400,000 unit 02/14/21 13:00 Nystatin Oral Susp 500,000 Unit/5 Ml Oral.Susp PO QID KAYCEE Protocol Omeprazole 20 mg 02/07/21 09:00 02/14/21 07:55 Omeprazole 20 Mg Capsule. PO 20 mg DAILY KAYCEE Administration Ondansetron HCl 4 mg 02/06/21 11:53 02/07/21 12:59 Ondansetron Hcl 4 Mg/2 Ml Vial IVPUSH 4 mg QID PRN Administration Nausea Polyethylene Glycol 17 gm 02/09/21 12:44 02/09/21 13:32 Polyethylene Glycol 3350 17 Gm Powd.Pack PO 17 gm DAILY PRN Administration Constipation Sodium Chloride 3 ml 02/06/21 16:00 02/14/21 07:55 0.9 % Sodium Chloride Flush 3 Ml Syringe IVFLUSH 3 ml QSHIFT KAYCEE Administration Tamsulosin HCl 0.4 mg 02/06/21 21:00 02/13/21 21:41 Tamsulosin Hcl 0.4 Mg Capsule PO 0.4 mg BEDTIME KAYCEE Administration Labs CBC & Chem 7: 02/12/21 04:53 02/12/21 04:53 Quality Stroke Does the patient have a stroke diagnosis?: No VTE Prior VTE?: Yes VTE Risk Level:: Surgical - very high VTE Device Contraindication: N/A - Device Ordered VTE Drug Contraindication: N/A - Med Ordered Assessment and Plan (1) Pulmonary embolism: Status: Acute (2) Acute cholecystitis: Status: Acute Assessment and Plan: 80-year-old male with a history of BPH, GERD, hyperlipidemia, 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 need for direct visualization, rule out esophogeal involvement Acute cholecystitis Management per surgical team h/o LLE DVT/PE Eliquis GERD Continue omeprazole BPH continue finasteride, tamsulosin HLD Continue statin
[2021-02-14 11:31] VITALS: BP 151/79; PULSE 64; RESP 17; TEMP 36.3; O2SAT 94
--- NOTE | 2021-02-14 11:40 | P.DS_ITS ---
DS: Providers Provider Date of Service: 02/14/21 Date of admission: 02/06/21 10:34 Primary care physician: Duarte Waters MD Consults: 02/06/21 11:53 Consult to Hospitalist Routine Consulting Provider: Hospitalist Reason For Exam: DVT, Acute cholecystitis 02/13/21 21:32 Consult to Gastroenterology Routine Consulting Provider: Jim Emery Reason for consultation: odynophagia DS: Diagnosis Discharge Diagnosis (1) Pulmonary embolism: Status: Acute Problem details: unprovoked; November 2018; followed by Dr. Pablo; on Eliquis (2) Acute cholecystitis: Status: Acute Problem details: s/p lap kit (3) Sleep apnea: Status: Acute Problem details: will need outpt work up DS: Medications Discharge Medications Home Medications: Home Medications Medication Instructions Recorded Confirmed Eliquis 1 tab PO BID 08/27/20 02/06/21 finasteride 1 tab PO DAILY 08/27/20 02/06/21 omeprazole 1 cap PO DAILY 08/27/20 02/06/21 simvastatin 1 tab PO BEDTIME 08/27/20 02/06/21 tamsulosin 1 cap PO BEDTIME 08/27/20 02/06/21 Previous Rx's Medication Instructions Recorded hydrocodone-acetaminophen 1 tab PO Q6H PRN #14 tab 02/12/21 DS: Summary Hospital Course Hospital Course: Pt admitted with abdominal pain - work up revealed acute cholecystitis and he underwent a lap kit and postoperatively did well Status at Discharge Functional status at discharge: independent ambulation Overall status at discharge: patient is back to baseline Time Spent with Patient Time attestation: Total time spent providing and/or coordinating discharge services: Discharge coordination time: Less than 30 minutes Quality: Stroke Does the patient have a stroke diagnosis?: No Physical Exam Vital Signs: Vital Signs: Last Vital Signs Temp 97.3 F 02/14/21 11:31 Pulse 64 02/14/21 11:31 Resp 17 02/14/21 11:31 BP 151/79 H 02/14/21 11:31 Pulse Ox 94 02/14/21 11:31 Oxygen Flow Rate 2 02/11/21 14:00 Body Mass Index 31.8 Const: Other: awake, alert, in NAD General: cooperative, healthy appearing, comfortable, no acute distress, well developed, alert, awake, acute distress and ill appearing Nutritional Appearance: well nourished Bruce entation/consciousness: patient oriented x3 Limitations: No language barrier HENMT: Head: Yes normocephalic and Yes atraumatic Ears: hearing grossly normal bilaterally Eyes: Sclerae: sclerae normal EOM: EOMs intact bilaterally Chest: Chest palpation & inspection: normal inspection of the chest Resp: Other: nasal O2 on; no respiratory distress Effort & Inspection: normal respiratory effort and no respiratory distress Cardio: Rate: regular rate Rhythm: regular rhythm GI: Other: Soft, nondistended, nontender, intact incisions following laparoscopic cholecystectomy Skin: Other: Warm, dry, no rash, normal color General skin exam: no rashes or lesions noted Neuro: General: patient oriented x3 Cranial nerves: Yes CN's II-XII intact bilaterally and Yes Bilaterally intact EOM present Extrem: Other: Bilateral lower extremity edema, compression stockings in place General: Yes no clubbing, cyanosis or edema and Yes edema Psych: Affect: Anxious affect present DS: Data Data Completed and Pending Completed studies during hospitalization [Text1]: Pending at discharge 02/08/21 13:26 Surgical Path [Surgical] [PTH] Routine Discharge Plan Discharge Patient Disposition: Home, Self-Care Discharge Diagnosis: Acute acalculous cholecystitis Referrals: Davian Moss MD [Physician] - 1 Week Duarte Waters MD [Primary Care Provider] - 1 Week Discharge Medications: New hydrocodone-acetaminophen 5-325 mg tablet 1 tab PO Q6H PRN (Reason: pain) Qty: 14 RF: 0 Continued tamsulosin 0.4 mg capsule 1 cap PO BEDTIME RF: 0 simvastatin 20 mg tablet 1 tab PO BEDTIME RF: 0 omeprazole 20 mg capsule,delayed release(DR/EC) 1 cap PO DAILY RF: 0 finasteride 5 mg tablet 1 tab PO DAILY RF: 0 Eliquis 5 mg tablet 1 tab PO BID RF: 0 Discharge Orders: Discharge Order (Routine); Ordered 02/14/21 Ordered By: Thao Kim Diet: advance to usual diet Activity on Discharge: No heavy lifting Stand Alone Forms: Patient Portal Discharge page Activity Restrictions/Additional Instructions: If the incision area is tender, you may apply an ice pack for short intervals (No more than 20 minutes on, followed by at least 20 minutes off). Do not apply heat. Do not use creams, lotions, or topical antibiotics unless instructed to do so by your surgeon. These can cause infection or allergic reaction. Ok to shower. Call Your Doctor If: -Your temperature exceeds 101.5? F -You experience excessive pain or swelling -You have an unexpected reaction to medication -You have excessive bleeding -You experience continued vomiting/nausea -Your incision begins to separate -Your incision shows signs of infection such as increased redness, swelling, excessive pain, drainage (light blood or clear fluid is normal) or heat Care Plan Goals: Return to normal activity and diet Health Concerns: Acute abdominal pain nausea and vomiting Plan of Treatment: Laparoscopic cholecystectomy performed on 02/08/2021 Assessment: Acute acalculous cholecystitis
--- NOTE | 2021-02-14 12:00 | MHC.CM.PN ---
Pt cleared to DC home today with no services. to transport
[2021-02-14] MEDS: Nystatin Oral Susp 500,000 UNIT/5 ML ORAL.SUSP 400000 UNIT PO (13:10)
[2021-02-14 13:52] VITALS: O2SAT 94
--- NOTE | 2021-02-14 22:05 | CONS_ITS ---
DATE OF SERVICE: 02/14/2021 REFERRING PHYSICIAN: Shan Patrick MD REASON FOR CONSULTATION: Odynophagia. HISTORY OF PRESENT ILLNESS: Mr. Ramirez is a pleasant 80-year-old man, who was admitted to the hospital on 02/08 with abdominal pain. He underwent cholecystectomy because of abdominal pain and was found to have an inflamed gallbladder. Postoperatively, he did well. He reports developing a lesion on his tongue that is painful when he eats and has had a sore throat. He reports swallowing is without pain, but he does notice at the lower end of his sternum that when he is anxious and eats, he gets discomfort. This also appears between his shoulder blades. He has a history of gastroesophageal reflux disease and has been on famotidine at home and in the hospital has been treated with omeprazole 20 mg daily. He has no dysphagia and no hematemesis or melena. He previously underwent upper endoscopy in April of 2013 because of gastroesophageal reflux disease and findings included small hiatal hernia as well as reflux changes, but no evidence of Reese esophagus. PAST MEDICAL HISTORY: 1. Gastroesophageal reflux disease. 2. Cholecystectomy. 3. BPH. 4. Hyperlipidemia. 5. DVT/PE. CURRENT MEDICATIONS: Current medication list is reviewed in the chart. ALLERGIES: OXYCODONE. FAMILY HISTORY: This is reviewed with the patient and is noncontributory. SOCIAL HISTORY: There is no current tobacco, alcohol, or substance abuse. REVIEW OF SYSTEMS: SKIN: No pruritus. HEENT: Negative. CARDIOPULMONARY: He denies shortness of breath or chest pain. GASTROINTESTINAL: As above. GENITOURINARY: Negative. NEURO/PSYCHIATRIC: Negative. PHYSICAL EXAMINATION: GENERAL: Pleasant male, in no acute distress. VITAL SIGNS: Stable. SKIN: Anicteric. HEENT: No scleral icterus. NECK: Without lymphadenopathy or thyromegaly. LUNGS: Clear. HEART: Regular rate and rhythm. S1, S2. No murmur. ABDOMEN: Soft without focal masses or tenderness. Bowel sounds are present. No organomegaly is noted. EXTREMITIES: Edema. LABORATORY DATA: Reviewed. IMPRESSION: Gastroesophageal reflux disease. At this point, he has no complaints of odynophagia, but does have some symptoms that seem more stress related. I would recommend increasing his omeprazole to b.i.d. dosing for the short term, and if his symptoms persist, I would consider upper endoscopy electively as an outpatient. This was discussed with the patient and his . Thanks for asking me to see him. I will follow him in the hospital as needed. MD LUIS FELIPE Mcdaniel/ALE / [id number] MTDD
== END 2021-02-14 15:38 | disposition home or self-care (01) | DRG 417 ==
LOC: HO.ED 09:35 → HO.EDOVER 10:58 → HO.S3 15:58 → HO.IMC 02-08 15:52
PROVIDERS: Internal Medicine; Admitting Provider Surgery; Emergency Provider Emergency Medicine; PCP Internal Medicine; Visit Provider Surgery
PROC: 0FT44ZZ Resection of Gallbladder, Percutaneous Endoscopic Approach (ICD-10-PCS; CPT 47562; principal; 2021-02-08 11:30)
DX: K81.0 Acute cholecystitis (principal); J96.01 Acute respiratory failure with hypoxia; N17.9 Acute kidney failure, unspecified; J98.11 Atelectasis; N40.0 Benign prostatic hyperplasia without lower urinary tract symptoms; G47.30 Sleep apnea, unspecified; K21.9 Gastro-esophageal reflux disease without esophagitis; D72.89 Other specified disorders of white blood cells; Z86.711 Personal history of pulmonary embolism; Z20.822 Contact with and (suspected) exposure to COVID-19; Z87.891 Personal history of nicotine dependence; Z79.01 Long term (current) use of anticoagulants; Z79.899 Other long term (current) drug therapy
CPT/HCPCS: 36415; 71045; 76705; 80048; 80076; 81003; 83605; 83690; 83735; 83880; 85025; 85027; 85610; 85730; 86850; 86900; 86901; 87040; 87635; 88304; 93005; 93970; 99024; 99232; 99238; 99285; J0131; J0330; J1100; J1170; J1650; J2250; J2270; J2370; J2405; J2543; J3010

== ENCOUNTER → 2021-03-02 09:38 | Outpatient (BNVA) | payer MEDICARE, SELFPAY | PROVIDERS: PCP Internal Medicine; Referring Provider Internal Medicine; Visit Provider Surgery | DX: Z48.815 Encounter for surgical aftercare following surgery on the digestive system (principal); Z90.49 Acquired absence of other specified parts of digestive tract; Z87.19 Personal history of other diseases of the digestive system | CPT/HCPCS: 99212 ==

== ENCOUNTER 2021-03-29 14:26 | Outpatient (REF) | payer MEDICARE, SELFPAY ==
[2021-03-29 15:40] LABS: Estimated Average Glucose 114 mg/dL; Hemoglobin A1c % 5.6 %
[2021-03-29 15:56] LABS: Alanine Aminotransferase 16 U/L (0-40); Albumin Level 3.9 g/dL (3.5-5.0); Alkaline Phosphatase 141 U/L (39-117); Anion Gap 12 (12-20); Aspartate Amino Transferase 21 U/L (5-37); Bilirubin Total 0.6 mg/dL (0.0-1.0); Blood Urea Nitrogen 20 mg/dL (9-16); Calcium 9.1 mg/dL (8.4-10.2); Carbon Dioxide 28 mmol/L (22-29); Chloride 107 mmol/L (96-108); Estimated Glomerular Filt Rate > 60; Glucose Random 114 mg/dL (60-115); Potassium 5.1 mmol/L (3.3-5.1); Sodium 142 mmol/L (135-145); Total Protein 6.5 g/dL (6.5-8.0)
[2021-03-29 16:20] LABS: Free T4 (Free Thyroxine) 0.73 ng/dL (0.71-1.85); Thyroid Stimulating Hormone 1.39 uIU/mL (0.32-4.0)
== END 2021-03-29 14:27 | disposition home or self-care (01) ==
LOC: HO.LAB 14:26
PROVIDERS: PCP Internal Medicine; Visit Provider Internal Medicine
DX: R53.83 Other fatigue (principal); R73.03 Prediabetes; Z86.718 Personal history of other venous thrombosis and embolism
CPT/HCPCS: 36415; 80053; 83036; 84439; 84443

== ENCOUNTER → 2021-04-29 14:50 | Outpatient (REF) | payer MEDICARE, SELFPAY | LOC: HO.SL 14:50 | PROVIDERS: PCP Internal Medicine; Visit Provider Internal Medicine | DX: R53.82 Chronic fatigue, unspecified (principal); R06.83 Snoring; G47.30 Sleep apnea, unspecified | CPT/HCPCS: 95806 ==

== ENCOUNTER 2021-06-28 08:35 | Outpatient (REF) | payer MEDICARE, SELFPAY ==
[2021-06-28 11:24] LABS: MANUAL DIFF FLAG NO
[2021-06-28 11:44] LABS: Basophils Percent Auto 0.7 % (0-2); Eosinophils Absolute Auto 0.2 X10*3/uL (0.0-0.4); Eosinophils Percent Auto 2.7 % (0-4); Hematocrit 46.1 % (42.0-52.0); Imm Gran Abs Auto 0.02 X10*3/uL (0.00-0.03); Imm Gran Pct Auto 0.4 % (0.0-0.4); Lymphocytes Absolute Auto 1.6 X10*3/uL (1.2-4.9); Lymphocytes Percent Auto 28.6 % (20-40); Mean Corpuscular HGB Conc 32.5 g/dl (31.0-36.0); Mean Corpuscular Hemoglobin 29.9 pg (27.0-33.0); Mean Platelet Volume 10.8 fL (9.4-12.4); Monocytes Absolute Auto 0.6 X10*3/uL (0.1-1.2); Monocytes Percent Auto 10.3 % (2-11); Neutrophils Absolute Auto 3.2 x10*3/uL (2.0-8.3); Neutrophils Percent Auto 57.3 % (45-73); Platelet Count 222 X10*3/uL (160-400); Red Blood Count 5.01 X10*6/uL (4.60-5.80); Red Cell Distribution Width 12.7 % (11.0-16.0); White Blood Count 5.5 X10*3/uL (4.8-10.8)
[2021-06-28 12:06] LABS: Alanine Aminotransferase 13 U/L (0-40); Albumin Level 3.9 g/dL (3.5-5.0); Alkaline Phosphatase 134 U/L (39-117); Anion Gap 11 (12-20); Aspartate Amino Transferase 19 U/L (5-37); Bilirubin Total 0.6 mg/dL (0.0-1.0); Blood Urea Nitrogen 14 mg/dL (9-16); Carbon Dioxide 26 mmol/L (22-29); Chloride 106 mmol/L (96-108); Cholesterol 145 mg/dL; Estimated Glomerular Filt Rate > 60; Glucose Fasting 105 mg/dL (60-99); HDL Cholesterol 43 mg/dL; LDL Cholesterol Calculated 69 mg/dl; Potassium 4.4 mmol/L (3.3-5.1); Sodium 139 mmol/L (135-145); Total Protein 6.6 g/dL (6.5-8.0); Triglycerides 167 mg/dL
[2021-06-28 12:28] LABS: Prostate Specific Antigen 0.21 ng/mL (<0.05-4.0)
== END 2021-06-28 08:36 | disposition home or self-care (01) ==
LOC: HO.HMGCLDS 08:35
PROVIDERS: PCP Internal Medicine; Visit Provider Internal Medicine
DX: E78.00 Pure hypercholesterolemia, unspecified (principal); N40.0 Benign prostatic hyperplasia without lower urinary tract symptoms; Z12.5 Encounter for screening for malignant neoplasm of prostate
CPT/HCPCS: 36415; 80053; 80061; 84153; 85025

== ENCOUNTER 2021-11-04 08:52 | Outpatient (REF) | payer MEDICARE, SELFPAY ==
[2021-11-04 11:16] LABS: MANUAL DIFF FLAG NO
[2021-11-04 11:24] LABS: Basophils Absolute Auto 0.1 X10*3/uL (0.0-0.2); Basophils Percent Auto 0.8 % (0-2); Eosinophils Absolute Auto 0.1 X10*3/uL (0.0-0.4); Eosinophils Percent Auto 1.5 % (0-4); Hematocrit 47.3 % (42.0-52.0); Hemoglobin 15.1 g/dl (14.0-18.0); Imm Gran Abs Auto 0.01 X10*3/uL (0.00-0.03); Imm Gran Pct Auto 0.2 % (0.0-0.4); Lymphocytes Absolute Auto 1.9 X10*3/uL (1.2-4.9); Lymphocytes Percent Auto 30.7 % (20-40); Mean Corpuscular HGB Conc 31.9 g/dl (31.0-36.0); Mean Corpuscular Hemoglobin 29.5 pg (27.0-33.0); Mean Corpuscular Volume 92.6 fL (80.0-98.0); Monocytes Absolute Auto 0.6 X10*3/uL (0.1-1.2); Monocytes Percent Auto 9.2 % (2-11); Neutrophils Absolute Auto 3.6 x10*3/uL (2.0-8.3); Neutrophils Percent Auto 57.6 % (45-73); Platelet Count 217 X10*3/uL (160-400); Red Blood Count 5.11 X10*6/uL (4.60-5.80); Red Cell Distribution Width 12.5 % (11.0-16.0); White Blood Count 6.2 X10*3/uL (4.8-10.8)
[2021-11-04 11:38] LABS: Alanine Aminotransferase 15 U/L (0-40); Albumin Level 3.9 g/dL (3.5-5.0); Alkaline Phosphatase 129 U/L (39-117); Anion Gap 14 (12-20); Aspartate Amino Transferase 19 U/L (5-37); Bilirubin Total 0.6 mg/dL (0.0-1.0); Blood Urea Nitrogen 16 mg/dL (9-16); Calcium 9.3 mg/dL (8.4-10.2); Carbon Dioxide 23 mmol/L (22-29); Chloride 107 mmol/L (96-108); Cholesterol 176 mg/dL; Estimated Glomerular Filt Rate > 60; Glucose Fasting 103 mg/dL (60-99); HDL Cholesterol 46 mg/dL; LDL Cholesterol Calculated 100 mg/dl; Potassium 4.6 mmol/L (3.3-5.1); Sodium 139 mmol/L (135-145); Total Protein 6.5 g/dL (6.5-8.0); Triglycerides 152 mg/dL
[2021-11-04 12:01] LABS: Prostate Specific Antigen Scr 0.22 ng/mL (<0.05-4.0)
== END 2021-11-04 08:53 | disposition home or self-care (01) ==
LOC: HO.HMGCLDS 08:52
PROVIDERS: Visit Provider Internal Medicine
DX: N40.0 Benign prostatic hyperplasia without lower urinary tract symptoms (principal); E78.00 Pure hypercholesterolemia, unspecified; Z86.718 Personal history of other venous thrombosis and embolism; Z12.5 Encounter for screening for malignant neoplasm of prostate
CPT/HCPCS: 36415; 80053; 80061; 84153; 85025

== ENCOUNTER 2023-02-27 07:52 | Outpatient (REF) | payer MEDICARE, SELFPAY ==
[2023-02-27 11:44] LABS: MANUAL DIFF FLAG NO
[2023-02-27 11:49] LABS: Basophils Absolute Auto 0.1 X10*3/uL (0.0-0.2); Basophils Percent Auto 1.2 % (0-2); Eosinophils Absolute Auto 0.2 X10*3/uL (0.0-0.4); Eosinophils Percent Auto 2.8 % (0-4); Hematocrit 46.8 % (42.0-52.0); Hemoglobin 15.1 g/dl (14.0-18.0); Imm Gran Abs Auto 0.01 X10*3/uL (0.00-0.03); Imm Gran Pct Auto 0.2 % (0.0-0.4); Lymphocytes Absolute Auto 1.8 X10*3/uL (1.2-4.9); Mean Corpuscular HGB Conc 32.3 g/dl (31.0-36.0); Mean Corpuscular Volume 92.9 fL (80.0-98.0); Mean Platelet Volume 11.2 fL (9.4-12.4); Monocytes Absolute Auto 0.5 X10*3/uL (0.1-1.2); Monocytes Percent Auto 9.2 % (2-11); Neutrophils Absolute Auto 3.2 x10*3/uL (2.0-8.3); Neutrophils Percent Auto 55.6 % (45-73); Platelet Count 214 X10*3/uL (160-400); Red Blood Count 5.04 X10*6/uL (4.60-5.80); Red Cell Distribution Width 12.7 % (11.0-16.0); White Blood Count 5.7 X10*3/uL (4.8-10.8)
[2023-02-27 13:02] LABS: Alanine Aminotransferase 13 U/L (0-40); Albumin Level 3.7 g/dL (3.5-5.0); Alkaline Phosphatase 113 U/L (39-117); Anion Gap 13 (12-20); Aspartate Amino Transferase 17 U/L (5-37); Bilirubin Total 0.7 mg/dL (0.0-1.0); Blood Urea Nitrogen 17 mg/dL (9-16); Calcium 9.3 mg/dL (8.4-10.2); Carbon Dioxide 25 mmol/L (22-29); Chloride 107 mmol/L (96-108); Cholesterol 144 mg/dL; Estimated Glomerular Filt Rate > 60; Glucose Fasting 100 mg/dL (60-99); HDL Cholesterol 45 mg/dL; LDL Cholesterol Calculated 74 mg/dl; Potassium 4.4 mmol/L (3.3-5.1); Sodium 141 mmol/L (135-145); Total Protein 6.5 g/dL (6.5-8.0); Triglycerides 129 mg/dL
== END 2023-02-27 07:53 | disposition home or self-care (01) ==
LOC: HO.HMGCLDS 07:52
PROVIDERS: PCP Internal Medicine; Visit Provider Internal Medicine
DX: Z12.5 Encounter for screening for malignant neoplasm of prostate (principal); I10 Essential (primary) hypertension; E78.00 Pure hypercholesterolemia, unspecified; K21.9 Gastro-esophageal reflux disease without esophagitis; N40.0 Benign prostatic hyperplasia without lower urinary tract symptoms
CPT/HCPCS: 36415; 80053; 80061; 81003; 84153; 85025

== ENCOUNTER 2024-01-09 08:14 | Outpatient (AMB) | payer MEDICARE, SELFPAY ==
--- NOTE | 2024-01-09 08:17 | AM.OFFWIN_ITS ---
Intake Vital Signs 01/09/24 08:30 Height 5 ft 8 in BP 112/70 Blood Pressure Location Rt brachial Position Sitting Pulse 76 Pulse Source Pulse Oximeter Temp 97.8 F Temp Source Oral Pulse Oximetry (%) 94 Intake Visit Reasons: ep/ chest tightness Intake Note: pt is here for chest tightness and unsure why Patient Tobacco Use Status: Former Tobacco user Allergies oxycodone Allergy (Unknown, Verified 01/09/24 09:36) Anaphylaxis Do you need a note to return to daycare/school/sports/work: No HPI HPI Comments History of Present Illness Details Patient presents today complaining of substernal chest pain that kept him awake last night. States he does have anxiety but feels as though this pain is different. He also added some mild shortness of breath but denies cough respiratory infection nasal congestion. Denies diaphoresis nausea vomiting PFSH Medical History HLD (hyperlipidemia) Left leg DVT Acidosis, lactic Leukocytosis Acute cholecystitis Abdominal pain Pulmonary embolism GERD (gastroesophageal reflux disease) BPH (benign prostatic hyperplasia) Hyperchloremia Surgical History Hx laparoscopic cholecystectomy H/O hemorrhoidectomy Family History Mother Pancreatic cancer Social History Household Members: Spouse Housing: House Are you a primary manager managed care to a significant other at home: No Do you presently have visiting nurse or other home services: No Alcohol intake: never Comment: medicated in pacu Patient Tobacco Use Status: Former Tobacco user Tobacco use type: Cigarette e-Cigarette/Vaping Use: Never Used Second Hand Smoke Exposure: No Advance Directives: Yes Advance Directives on File: Yes Advance Directives Date on File: 02/15/21 service: No Current occupational status: retired Review of Systems Const All systems reviewed & are unremarkable except as noted in HPI and below Eyes Reports no additional complaints ENT Reports no additional complaints Card Reports chest pain, Reports chest pain at rest and Reports dyspnea Resp Reports no additional complaints and Reports dyspnea GI Reports no additional complaints Physical Exam Vital Signs: Last Vital Signs Temp 97.8 F 01/09/24 08:30 Pulse 76 01/09/24 08:30 BP 112/70 01/09/24 08:30 Pulse Ox 94 01/09/24 08:30 HEENT Head: Yes normal to inspection, Yes normocephalic and Yes atraumatic Ears: hearing grossly normal bilaterally and TM's normal bilaterally General nose exam: Normal external nose present Face and sinus: Yes normal facial exam Throat: Yes posterior oropharynx normal Resp Effort & Inspection: normal respiratory effort Auscultation: clear to auscultation bilaterally Cardio Rate: regular rate Rhythm: regular rhythm Heart sounds: S1 normal heart sound present and S2 normal heart sound present Results Reviewed Results Reviewed: EKG done in the office today shows a left anterior fascicular block. Considering his symptomatic sternal chest pain we discussed the patient going to the emergency department for a cardiac workup Assessment & Plan Assessment & Plan (1) Chest pain: Code(s): R07.9 - Chest pain, unspecified Plan: Discuss this patient with Dr. Chavez and send him to the emergency room for full cardiac workup Plan See plan Orders: Orders AMB EKG-In Office Today R07.9 - Chest pain, unspecified Coding Level of Care Code Est Pt Level 3 (79031) Diagnoses Chest pain R07.9
[2024-01-09 08:30] VITALS: BP 112/70; PULSE 76; TEMP 36.6; O2SAT 94
== END 2024-01-09 09:50 | disposition home or self-care (01) ==
PROVIDERS: PCP Internal Medicine; Visit Provider Physician Assistant Medical
DX: R07.9 Chest pain, unspecified (principal)
CPT/HCPCS: 93000; 99213

== ENCOUNTER 2024-01-09 09:21 | Emergency (ER) | payer MEDICARE, SELFPAY ==
--- NOTE | ~2024-01-09 | XR_ITS ---
EXAMINATION: XR CHEST CLINICAL INFORMATION: Chest pain COMPARISON: 02/11/2021 TECHNIQUE: Frontal view of the chest was obtained. FINDINGS: Heart, mediastinum and vascularity within normal limits. Lungs appear hyperaerated. Mild left base atelectasis. No effusions. Bony structures are intact. XR/XR chest 1V IMPRESSION: Mild left base atelectasis.
--- NOTE | 2024-01-09 09:24 | ECG_ITS ---
Test Reason : chest pain Blood Pressure : / mmHG Vent. Rate : 059 BPM Atrial Rate : 059 BPM P-R Int : 220 ms QRS Dur : 098 ms QT Int : 420 ms P-R-T Axes : -01 -45 017 degrees QTc Int : 415 ms Sinus bradycardia with 1st degree A-V block Incomplete right bundle branch block Left anterior fascicular block Abnormal ECG When compared with ECG of 06-FEB-2021 09:29, Premature ventricular complexes are no longer Present Incomplete right bundle branch block is now Present Referred By: Generic ED Physician Electronically Signed By:Wojciech Turner
[2024-01-09 09:34] VITALS: BP 165/78; PULSE 65; RESP 16; TEMP 37; O2SAT 95; BMI 32.0
[2024-01-09 09:37] LABS: MANUAL DIFF FLAG NO
[2024-01-09 09:42] LABS: Basophils Absolute Auto 0.1 X10*3/uL (0.0-0.2); Basophils Percent Auto 1.1 % (0-2); Eosinophils Absolute Auto 0.1 X10*3/uL (0.0-0.4); Eosinophils Percent Auto 1.3 % (0-4); Hematocrit 46.7 % (42.0-52.0); Hemoglobin 15.7 g/dl (14.0-18.0); Imm Gran Abs Auto 0.01 X10*3/uL (0.00-0.03); Imm Gran Pct Auto 0.2 % (0.0-0.4); Lymphocytes Absolute Auto 1.7 X10*3/uL (1.2-4.9); Lymphocytes Percent Auto 30.5 % (20-40); Mean Corpuscular HGB Conc 33.6 g/dl (31.0-36.0); Mean Corpuscular Volume 92.3 fL (80.0-98.0); Mean Platelet Volume 10.1 fL (9.4-12.4); Monocytes Absolute Auto 0.5 X10*3/uL (0.1-1.2); Neutrophils Absolute Auto 3.1 x10*3/uL (2.0-8.3); Neutrophils Percent Auto 56.9 % (45-73); Platelet Count 186 X10*3/uL (160-400); Red Blood Count 5.06 X10*6/uL (4.60-5.80); Red Cell Distribution Width 12.2 % (11.0-16.0); White Blood Count 5.4 X10*3/uL (4.8-10.8)
[2024-01-09 09:49] LABS: INTERNATIONAL NORM RATIO 0.9 (0.9-1.1); Prothrombin Time 11.2 SEC (11.1-13.3)
[2024-01-09 09:52] LABS: Alanine Aminotransferase 10 U/L (0-40); Albumin Level 3.9 g/dL (3.5-5.0); Alkaline Phosphatase 126 U/L (39-117); Anion Gap 12 (12-20); Aspartate Amino Transferase 19 U/L (5-37); Bilirubin Direct 0.3 mg/dL (0.0-0.5); Bilirubin Total 0.7 mg/dL (0.0-1.0); Blood Urea Nitrogen 21 mg/dL (9-16); Calcium 9.3 mg/dL (8.4-10.2); Carbon Dioxide 27 mmol/L (22-29); Chloride 106 mmol/L (96-108); Creatinine Clr Calc Pharmacy 75.3; Estimated Glomerular Filt Rate > 60; Glucose Random 108 mg/dL (60-115); Lipase 19 U/L (8-78); Potassium 4.6 mmol/L (3.3-5.1); Sodium 140 mmol/L (135-145); Total Protein 6.6 g/dL (6.5-8.0)
[2024-01-09 10:02] LABS: Troponin-I High Sensitivity < 2.7 ng/L (<3.5-35.0)
--- NOTE | 2024-01-09 10:14 | ED_ITS ---
HPI - Chest Pain General Chief Complaint: Chest Pain Stated Complaint: Chest pain Time Seen by Provider: 01/09/24 09:45 Source: patient, family and old records reviewed Mode of arrival: ambulatory Limitations: no limitations History of Present Illness ED Provider: VEENA BRIGHT narrative: 83 yo male with PMH of GERD, BPH, HLD, DVT back in 2019 currently off of eliquis as of Aug [address] Chao and on baby aspirin who notes since 12/27 he has had chest tightness while watching TV no symptoms related to exertion. No associated dyspnea, nausea. Feels it is related to emotional stress. He denies fevers, cough, swelling. MD complaint: chest pain Onset (ago): week(s) (since 12/27) Timing of current episode: episodic Prior episodes: Yes Onset: during rest Pain location: substernal Pain radiation: none Severity: mild Quality: tightness Relieving factors: nothing Exacerbating factors: stress Context: history of DVT/PE Treatment prior to arrival: none Related Data Home Medications ?Medication ?Instructions ?Recorded ?Confirmed apixaban 5 mg tablet (Eliquis) 1 tab PO BID 08/27/20 09/01/23 finasteride 5 mg tablet 1 tab PO DAILY 08/27/20 09/01/23 omeprazole 20 mg capsule,delayed 1 cap PO DAILY 08/27/20 09/01/23 release simvastatin 20 mg tablet 1 tab PO BEDTIME 08/27/20 09/01/23 tamsulosin 0.4 mg capsule 1 cap PO BEDTIME 08/27/20 09/01/23 Allergies Allergy/AdvReac Type Severity Reaction Status Date / Time oxycodone Allergy Unknown Anaphylaxis Verified 01/09/24 09:36 Review of Systems 2 Review of Systems: Constitutional : No Weight loss, No Fever, No Chills ENT/Mouth : No sore throat, No Rhinorrhea Eyes: No Eye Pain, No Swelling Cardiovascular : pos Chest Pain, no SOB, no Dyspnea on Exertion, No Orthopnea, No Edema, No Palpitations Respiratory : No Cough, No Sputum Gastrointestinal : no Nausea, No Vomiting, No Diarrhea, No abdominal Pain, No Hematochezia, No Melena Genitourinary : No Dysuria, No Urinary Frequency Musculoskeletal : No joint pain, No Myalgias, No Joint Swelling Skin : No Skin Lesions, No rash Neuro : No Weakness, No Numbness, No Dizziness, No Headache Psych : No Anxiety/Panic, No Depression All other systems reviewed and are negative [facility] Past Medical History Attestation statement: The following information was validated with the patient. Source: old records reviewed Medical History HLD (hyperlipidemia) Left leg DVT Acidosis, lactic Leukocytosis Acute cholecystitis Abdominal pain Pulmonary embolism GERD (gastroesophageal reflux disease) BPH (benign prostatic hyperplasia) Hyperchloremia Surgical History Hx laparoscopic cholecystectomy H/O hemorrhoidectomy Family History Family History Mother Pancreatic cancer Social History Social History Household Members: Spouse Housing: House Are you a primary healthcare advisory services manager to a significant other at home: No Do you presently have visiting nurse or other home services: No Alcohol intake: never Comment: medicated in pacu Patient Tobacco Use Status: Former Tobacco user Tobacco use type: Cigarette e-Cigarette/Vaping Use: Never Used Second Hand Smoke Exposure: No Advance Directives: Yes Advance Directives on File: Yes Advance Directives Date on File: 02/15/21 service: No Current occupational status: retired Physical Exam 2 Vital Signs: Vital Signs: Last Vital Signs Temp 98.6 F 01/09/24 09:34 Pulse 65 01/09/24 09:34 Resp 16 01/09/24 09:34 BP 165/78 H 01/09/24 09:34 Pulse Ox 95 01/09/24 09:34 O2 Del Method Room Air 01/09/24 09:34 BMI result Body Mass Index 32.0 Appearance: Alert. Oriented X3. No acute distress. Eyes: Pupils equal, round and reactive to light. ENT: Pharynx normal. Neck: Normal inspection. Neck supple. CVS: Normal heart rate and rhythm. Pulses normal. Respiratory: No respiratory distress. Breath sounds normal. Abdomen: Soft and nontender. Skin: Skin warm and dry. Normal skin color. Normal skin turgor. Extremities: No lower extremity edema. No calf ttp Neuro: Oriented X 3. No motor deficit. No sensory deficit. Course Course Course Narrative: age adjusted ddimer negative trop flat eating lunch feels fine stable for DC Medical Decision Making Medical Decision Making [facility] Narrative: 83 yo male with PMH of GERD, BPH, HLD, DVT back in 2019 currently off of eliquis as of Aug [address] Chao and on baby aspirin here with very atypical chest tightness that occurs while watching the nightly news and TV he feels stressed out. He does not have chest pain with exertion. Has no associated symptoms with it. He denies infectious symptoms. He will denies GIB symptoms. He will get basic labs, troponin x 1, EKG, CXR, ddimer given his history. Differential Diagnosis Differential Diagnoses: The differential diagnosis associated with the presentation includes atypical chest pain, anxiety, VTE Admission/Observation Consideration of admission/observation: Escalation of care including admission/observation considered work up negative stable for DC Lab Data [facility] Lab Attestation statement: I reviewed the patient's lab results. 01/09/24 09:32 01/09/24 09:32 Labs: Lab Results 01/09/24 Range/Units 09:32 WBC 5.4 (4.8-10.8) X10*3/uL RBC 5.06 (4.60-5.80) X10*6/uL Hgb 15.7 (14.0-18.0) g/dl Hct 46.7 (42.0-52.0) % MCV 92.3 (80.0-98.0) fL MCH 31.0 (27.0-33.0) pg MCHC 33.6 (31.0-36.0) g/dl RDW 12.2 (11.0-16.0) % Plt Count 186 (160-400) X10*3/uL MPV 10.1 (9.4-12.4) fL Immature Gran % (Auto) 0.2 (0.0-0.4) % Neut % (Auto) 56.9 (45-73) % Lymph % (Auto) 30.5 (20-40) % [place] % (Auto) 10.0 (2-11) % Eos % (Auto) 1.3 (0-4) % Baso % (Auto) 1.1 (0-2) % Lymph # (Auto) 1.7 (1.2-4.9) X10*3/uL [place] # (Auto) 0.5 (0.1-1.2) X10*3/uL Eos # (Auto) 0.1 (0.0-0.4) X10*3/uL Baso # (Auto) 0.1 (0.0-0.2) X10*3/uL Abs Immat Gran (auto) 0.01 (0.00-0.03) X10*3/uL Absolute Neuts (auto) 3.1 (2.0-8.3) x10*3/uL Absolute Nucleated RBC 0.000 (0.0-0.012) X10*3/uL Nucleated RBC % (auto) 0.0 (0.0-0.2) /100WBC PT 11.2 (11.1-13.3) SEC INR 0.9 (0.9-1.1) D-Dimer High Sensitivty 281 NG/ML Sodium 140 (135-145) mmol/L Potassium 4.6 (3.3-5.1) mmol/L Chloride 106 (96-108) mmol/L Carbon Dioxide 27 (22-29) mmol/L Anion Gap 12 (12-20) BUN 21 H (9-16) mg/dL Creatinine 0.89 (0.5-1.4) mg/dL Estim Creat Clear Calc 75.3 Estimated GFR > 60 Random Glucose 108 (60-115) mg/dL Calcium 9.3 (8.4-10.2) mg/dL Magnesium 2.0 (1.6-2.6) mg/dL Total Bilirubin 0.7 (0.0-1.0) mg/dL Direct Bilirubin 0.3 (0.0-0.5) mg/dL AST 19 (5-37) U/L ALT 10 (0-40) U/L Alkaline Phosphatase 126 H (39-117) U/L Troponin I High Sens < 2.7 (<3.5-35.0) ng/L Total Protein 6.6 (6.5-8.0) g/dL Albumin 3.9 (3.5-5.0) g/dL Lipase 19 (8-78) U/L Independent Interpretation I performed an independent interpretation of an: EKG and Plain X-Ray (normal ) Interpretation: Rate: 59 Rhythm: sinus bradycardia with 1st degree AVB [place]: left Normal P waves. 1st degree AVB Normal QRS complex. ST T wave : no ANDREA, inverted t wave III qTC: 415 prior studies: no change from prior The study has been interpreted contemporaneously by me. . Radiology Impression Discussion of test interpretation with radiology: I have reviewed the radiologist's reading. Independent Historian Clinical information obtained from an independent historian. History obtained from or confirmed by: Spouse External Record Review External record reviewed: Inpatient record and Office record Discharge Plan Discharge Clinical Impression: Atypical chest pain Patient Disposition: Home, Self-Care Instructions: Chest Pain (ED) Additional Instructions: EKG unchanged from prior, no acute findings on chest xray, heart blood test normal, labs at baseline, blood clot test negative please follow up with your doctor no acute findings on todays exam that are concerning - work up reassuring. Prescriptions: No Action tamsulosin 0.4 mg capsule 1 cap PO BEDTIME simvastatin 20 mg tablet 1 tab PO BEDTIME omeprazole 20 mg capsule,delayed release(DR/EC) 1 cap PO DAILY finasteride 5 mg tablet 1 tab PO DAILY Eliquis 5 mg tablet 1 tab PO BID Print Language: Ukrainian
[2024-01-09 10:19] LABS: D Dimer High Sensitivity 281 NG/ML
[2024-01-09 12:14] VITALS: BP 118/63; PULSE 73; RESP 20; TEMP 36.8; O2SAT 94
== END 2024-01-09 12:17 | disposition home or self-care (01) ==
PROVIDERS: Emergency Provider Emergency Medicine; PCP Internal Medicine
DX: R07.89 Other chest pain (principal); Z86.718 Personal history of other venous thrombosis and embolism; Z79.82 Long term (current) use of aspirin
CPT/HCPCS: 36415; 71045; 80048; 80076; 83690; 83735; 84484; 85025; 85379; 85610; 93005; 99283

== ENCOUNTER → 2024-01-09 09:24 | Outpatient (BNV) | payer MEDICARE, SELFPAY | PROVIDERS: Emergency Provider Emergency Medicine; PCP Internal Medicine; Visit Provider Internal Medicine Cardiovascular Disease | DX: I44.0 Atrioventricular block, first degree (principal) | CPT/HCPCS: 93010 ==

== ENCOUNTER 2024-07-30 07:46 | Outpatient (REF) | payer MEDICARE, SELFPAY ==
[2024-07-30 10:18] LABS: MANUAL DIFF FLAG NO
[2024-07-30 10:31] LABS: Basophils Absolute Auto 0.1 X10*3/uL (0.0-0.2); Basophils Percent Auto 0.9 % (0-2); Eosinophils Absolute Auto 0.1 X10*3/uL (0.0-0.4); Eosinophils Percent Auto 2.3 % (0-4); Hematocrit 47.1 % (42.0-52.0); Hemoglobin 15.3 g/dl (14.0-18.0); Imm Gran Abs Auto 0.02 X10*3/uL (0.00-0.03); Imm Gran Pct Auto 0.4 % (0.0-0.4); Lymphocytes Absolute Auto 1.6 X10*3/uL (1.2-4.9); Lymphocytes Percent Auto 30.6 % (20-40); Mean Corpuscular HGB Conc 32.5 g/dl (31.0-36.0); Mean Corpuscular Hemoglobin 30.3 pg (27.0-33.0); Mean Corpuscular Volume 93.3 fL (80.0-98.0); Mean Platelet Volume 10.8 fL (9.4-12.4); Monocytes Absolute Auto 0.5 X10*3/uL (0.1-1.2); Monocytes Percent Auto 8.8 % (2-11); Platelet Count 206 X10*3/uL (160-400); Red Blood Count 5.05 X10*6/uL (4.60-5.80); Red Cell Distribution Width 12.5 % (11.0-16.0); White Blood Count 5.3 X10*3/uL (4.8-10.8)
[2024-07-30 10:51] LABS: Alanine Aminotransferase 10 U/L (0-40); Albumin Level 3.8 g/dL (3.5-5.0); Alkaline Phosphatase 116 U/L (39-117); Anion Gap 14 (12-20); Aspartate Amino Transferase 24 U/L (5-37); Bilirubin Total 0.5 mg/dL (0.0-1.0); Blood Urea Nitrogen 18 mg/dL (9-16); Calcium 9.2 mg/dL (8.4-10.2); Carbon Dioxide 27 mmol/L (22-29); Chloride 105 mmol/L (96-108); Cholesterol 134 mg/dL (<200); Estimated Glomerular Filt Rate > 60; Glucose Fasting 106 mg/dL (60-99); HDL Cholesterol 45 mg/dL (>40); LDL Cholesterol Calculated 67 mg/dL (<100); Potassium 4.7 mmol/L (3.3-5.1); Sodium 141 mmol/L (135-145); Total Protein 6.6 g/dL (6.5-8.0); Triglycerides 111 mg/dL (<150)
== END 2024-07-30 07:47 | disposition home or self-care (01) ==
LOC: HO.HMGCLDS 07:46
PROVIDERS: PCP Internal Medicine; Visit Provider Internal Medicine
DX: N40.0 Benign prostatic hyperplasia without lower urinary tract symptoms (principal); K21.9 Gastro-esophageal reflux disease without esophagitis; E78.00 Pure hypercholesterolemia, unspecified; Z12.5 Encounter for screening for malignant neoplasm of prostate
CPT/HCPCS: 36415; 80053; 80061; 84153; 85025

== ENCOUNTER 2025-01-31 11:13 | Outpatient (AMB) | payer MEDICARE, SELFPAY ==
--- NOTE | 2025-01-31 10:50 | MHC.PC.OV ---
Vital Signs 01/31/25 11:15 Height 5 ft 10 in Weight 212 lb BMI 30.4 BP 120/66 Blood Pressure Location Rt brachial Position Sitting Pulse 55 Pulse Source Pulse Oximeter Temp 97.5 F Temp Source Axillary Pulse Oximetry (%) 95 Oxygen Delivery Method Room Air Intake Visit Reasons: PE- see comments Client Manager Required: No Accompanied by: Self / Same As Patient Allergies oxycodone Allergy (Unknown, Verified 01/31/25 10:50) Anaphylaxis Tobacco use date assessed: 01/31/25 Fall risk assessment: No Falls in past year Last assessed Fall Risk: 01/31/25 Dental Screening Dental Screen Date: 01/31/25 Did you have a dental visit in the last 12 months?: Yes Did you have a dental problem in the last 6 months where you did not have access to dental care?: No HPI HPI Comments History of Present Illness Details The patient is a 84 year old male with a past medical history of hyplipidemia, BPH, GERD, h/o PE, DVT on asa presenting for CPE HLD-on simvastatin. History of PE, unprovoked in 2018 BPH is stable on finasteride and flomax GERD-stable on prilosec cologuard 10/2022 negative Dental is overdue-he is planning to schedule ROS CONSTITUTIONAL: Denies weight loss, fever and chills. HEENT: Denies changes in vision and hearing. RESPIRATORY: Denies SOB and cough. CV: Denies palpitations and CP GI: Denies abdominal pain, nausea, vomiting and diarrhea. : Denies dysuria and urinary frequency. MSK: Denies new myalgia and joint pain. SKIN: Denies rash and pruritus. NEUROLOGICAL: Denies headache PSYCHIATRIC: Denies recent changes in mood. PHYSICAL EXAM: GENERAL: Alert and oriented x 3. NAD EYES: EOMI. Anicteric. HENT: Moist mucous membranes. No scleral icterus. No cervical lymphadenopathy. LUNGS: Clear to auscultation bilaterally. CARDIOVASCULAR: Regular rate and rhythm. No murmur. No JVD. ABDOMEN: Soft, non-tender +bs EXTREMITIES: No edema. Non-tender. SKIN: No rashes or lesions. Warm. NEUROLOGIC: No focal neurological deficits. CN II-XII grossly intact PSYCHIATRIC: Cooperative. Appropriate mood and affect [facility] Medical History HLD (hyperlipidemia) Left leg DVT Acidosis, lactic Leukocytosis Acute cholecystitis Abdominal pain Pulmonary embolism GERD (gastroesophageal reflux disease) BPH (benign prostatic hyperplasia) Hyperchloremia Surgical History History of colonoscopy (~08/05/19) Hx laparoscopic cholecystectomy H/O hemorrhoidectomy Family History Mother Pancreatic cancer Mother No problems noted. Father No problems noted. Social History Household Members: Spouse Housing: House Are you a primary acute care nursing assistant to a significant other at home: No Do you presently have visiting nurse or other home services: No Alcohol intake: never Comment: medicated in pacu Patient Tobacco Use Status: Never used Tobacco e-Cigarette/Vaping Use: Never Used Second Hand Smoke Exposure: No Advance Directives Date on File: 02/15/21 service: No Current occupational status: retired Cognitive needs: No Hearing needs: No Vision needs: No Questionnaire PHQ-9 Over the last 2 weeks, how often have you been bothered by any of the following problems? 1. Little interest or pleasure in doing things: not at all 2. Feeling down, depressed, or hopeless: not at all 3. Trouble falling or staying asleep, or sleeping too much: not at all 4. Feeling tired or having little energy: not at all 5. Poor appetite or overeating: not at all 6. Feeling bad about yourself - or that you are a failure or have let yourself or your family down: not at all 7. Trouble concentrating on things, such as reading the newspaper or watching television: not at all 8. Moving or speaking so slowly that other people could have noticed. Or the opposite - being so fidgety or restless that you have been moving around a lot more than usual: not at all 9. Thoughts that you would be better off or of hurting yourself in some way: not at all Total score: 0 Depression Screening Interpretation: Negative Depression Screening Done: Yes 28261 - PHQ-9 Billing: Yes Source: Developed by Sherman Marianoet B.W. Fam, Vicente Pink and colleagues, with an educational brandi from [employer]. Thrive Questionnaire Date Thrive assessed: 01/31/25 I am a: Patient Within the past 12 months, did the food you bought not last and you didn't have the money to get more?: Never true Within the past 12 months, did you worry whether your food would run out before you got money to buy more?: Never true Do you have trouble paying for medicines?: No Do you have trouble getting transportation to medical appointments?: No Do you have trouble paying your heating and electricity bill?: No Do you have trouble taking care of your child, family member or friend?: No Do you have trouble with day-to-day activities such as bathing, preparing meals, shopping, managing finances, etc.?: No Are you currently unemployed and looking for a job?: No Are you interested in more education?: No THRIVE Score: 0 AUDIT C Alcohol Use Questionnaire (AUDIT-C) 1. How often do you have a drink containing alcohol?: Never 3. How often do you have six or more drinks on one occasion?: Never Total Score: 0 BARRON-7 AMB Questionnaire BARRON-7 Date BARRON - 7 assessed: 01/31/25 Feeling nervous, anxious, or on edge: 0 = Not at all Not being able to stop or control worryin = Not at all Worrying too much about different things: 0 = Not at all Trouble relaxin = Not at all Being so restless that it is hard to sit still: 0 = Not at all Becoming easily annoyed or irritable: 0 = Not at all Feeling afraid as if something awful might happen: 0 = Not at all Total BARRON-7 score (0-4 normal; 5-9 mild; 10-14 moderate; 15-21 severe): 0 Source: Developed by Drs. Mani Mandujano, Sade Otto, Vicente Pink and colleagues, with an educational brandi from [employer]. Physical exam (Primary Care) Vital Signs: Last Vital Signs Temp 97.5 F 01/31/25 11:15 Pulse 55 01/31/25 11:15 BP 120/66 01/31/25 11:15 Pulse Ox 95 01/31/25 11:15 Oxygen Delivery Method Room Air 01/31/25 11:15 BMI result Body Mass Index 30.4 Tobacco/Smoking Status: Tobacco use Status Tobacco use date assessed 01/31/25 01/31/25 10:51 Patient Tobacco Use Status Former Tobacco user 01/31/25 10:51 Tobacco use type Cigarette 01/31/25 10:51 e-Cigarette/Vaping Use Former Use 01/31/25 10:51 PHQ-9: PHQ-9 Score PHQ-9: Total score 0 01/31/25 10:51 Depression Screening Interpretation: Negative Thrive Assessment: Date of Thrive Assessment Date Thrive assessed 01/31/25 01/31/25 10:51 Coding Level of Care Code New Pt Prev Care >65yr (05986) Diagnoses Physical exam Z00.00 Benign prostatic hyperplasia, unspecified whether lower urinary tract symptoms present N40.0 Lower urinary tract symptom presence: unspecified whether lower urinary tract symptoms present Hyperlipidemia, unspecified hyperlipidemia type E78.5 Hyperlipidemia type: unspecified Gastroesophageal reflux disease, unspecified whether esophagitis present K21.9 Esophagitis presence: esophagitis presence not specified Additional Codes PHQ-9 - 46894 - PHQ-9 Billing: Yes ([id number]) Assessment & Plan Assessment & Plan (1) Physical exam: Code(s): Z00.00 - Encounter for general adult medical examination without abnormal findings (2) BPH (benign prostatic hyperplasia): Code(s): N40.0 - Benign prostatic hyperplasia without lower urinary tract symptoms Category: Medical Qualifiers: Lower urinary tract symptom presence: unspecified whether lower urinary tract symptoms present Qualified Code(s): N40.0 - Benign prostatic hyperplasia without lower urinary tract symptoms (3) HLD (hyperlipidemia): Code(s): E78.5 - Hyperlipidemia, unspecified Category: Medical Qualifiers: Hyperlipidemia type: unspecified Qualified Code(s): E78.5 - Hyperlipidemia, unspecified (4) GERD (gastroesophageal reflux disease): Code(s): K21.9 - Gastro-esophageal reflux disease without esophagitis Category: Medical Qualifiers: Esophagitis presence: esophagitis presence not specified Qualified Code(s): K21.9 - Gastro-esophageal reflux disease without esophagitis Plan 84 year old to establish care/cpe HLD-controlled on current medication BPH controlled on current medication GERD-stable on PPI Orders: Orders Comprehensive Met. Panel Today E78.5 - Hyperlipidemia, unspecified, K21.9 - Gastro-esophageal reflux disease without esophagitis, N40.0 - Benign prostatic hyperplasia without lower urinary tract symptoms, Z12.5 - Encounter for screening for malignant neoplasm of prostate, Z13.0 - Encounter for screening for diseases of the blood and blood-forming organs and certain disorders involving the immune mechanism Lipid Panel Today E78.5 - Hyperlipidemia, unspecified, K21.9 - Gastro-esophageal reflux disease without esophagitis, N40.0 - Benign prostatic hyperplasia without lower urinary tract symptoms, Z12.5 - Encounter for screening for malignant neoplasm of prostate, Z13.0 - Encounter for screening for diseases of the blood and blood-forming organs and certain disorders involving the immune mechanism Hemoglobin A1c Today E78.5 - Hyperlipidemia, unspecified, K21.9 - Gastro-esophageal reflux disease without esophagitis, N40.0 - Benign prostatic hyperplasia without lower urinary tract symptoms, Z12.5 - Encounter for screening for malignant neoplasm of prostate, Z13.0 - Encounter for screening for diseases of the blood and blood-forming organs and certain disorders involving the immune mechanism Complete Blood Count Auto Diff Today E78.5 - Hyperlipidemia, unspecified, K21.9 - Gastro-esophageal reflux disease without esophagitis, N40.0 - Benign prostatic hyperplasia without lower urinary tract symptoms, Z12.5 - Encounter for screening for malignant neoplasm of prostate, Z13.0 - Encounter for screening for diseases of the blood and blood-forming organs and certain disorders involving the immune mechanism Prostate Specific Antigen Today E78.5 - Hyperlipidemia, unspecified, K21.9 - Gastro-esophageal reflux disease without esophagitis, N40.0 - Benign prostatic hyperplasia without lower urinary tract symptoms, Z12.5 - Encounter for screening for malignant neoplasm of prostate, Z13.0 - Encounter for screening for diseases of the blood and blood-forming organs and certain disorders involving the immune mechanism Medications: Changed From omeprazole 1 cap PO DAILY To omeprazole 20 mg PO DAILY 90 caps 3RF From finasteride 1 tab PO DAILY To finasteride 5 mg PO DAILY 90 tabs 3RF From simvastatin 1 tab PO BEDTIME To simvastatin 20 mg PO BEDTIME 90 tabs 3RF From tamsulosin 1 cap PO BEDTIME To tamsulosin 0.4 mg PO BEDTIME 90 caps 3RF
[2025-01-31 11:15] VITALS: BP 120/66; PULSE 55; TEMP 36.4; O2SAT 95; BMI 30.4
== END 2025-01-31 11:40 | disposition home or self-care (01) ==
LOC: HO.HMCHD 11:13
PROVIDERS: PCP Internal Medicine; Visit Provider Internal Medicine
DX: Z00.00 Encounter for general adult medical examination without abnormal findings (principal); N40.0 Benign prostatic hyperplasia without lower urinary tract symptoms; E78.5 Hyperlipidemia, unspecified; K21.9 Gastro-esophageal reflux disease without esophagitis

== ENCOUNTER → 2025-01-31 11:13 | Outpatient (BNVA) | payer MEDICARE, SELFPAY | PROVIDERS: PCP Internal Medicine; Visit Provider Internal Medicine | DX: Z00.00 Encounter for general adult medical examination without abnormal findings (principal); N40.0 Benign prostatic hyperplasia without lower urinary tract symptoms; E78.5 Hyperlipidemia, unspecified; K21.9 Gastro-esophageal reflux disease without esophagitis; Z86.711 Personal history of pulmonary embolism; Z86.718 Personal history of other venous thrombosis and embolism; Z79.82 Long term (current) use of aspirin; Z79.899 Other long term (current) drug therapy; Z13.31 Encounter for screening for depression; Z13.30 Encounter for screening examination for mental health and behavioral disorders, unspecified | CPT/HCPCS: 96127; 99387 ==